=== PATIENT | male | born 1945 | race Caucasian/White ===

== ENCOUNTER 2018-08-02 13:02 | Inpatient (IN) ==
[2018-08-02] MEDS ORDERED: TORADOL IV ONE (13:37)
[2018-08-02] MEDS ORDERED: DUONEB (A & A) INH ONE (13:37)
[2018-08-02] MEDS ORDERED: NS 1,000 ML IV ONE ×2 (13:37→19:07)
[2018-08-02] MEDS ORDERED: SOLU-MEDROL IV ONE (13:37)
--- NOTE | 2018-08-02 13:46 | EKG Report ---
Test Performed on : 08/02/2018 1:38:48 PM Test Reason : hypotension Blood Pressure : / mmHG Vent. Rate : 084 BPM Atrial Rate : 416 BPM P-R Int : 000 ms QRS Dur : 144 ms QT Int : 396 ms P-R-T Axes : 000 -14 007 degrees QTc Int : 467 ms Wide QRS rhythm. Right bundle branch block Abnormal ECG When compared with ECG of 19-MAY-2017 10:53, Wide QRS rhythm. has replaced Sinus rhythm. Unconfirmed Result
[2018-08-02 14:28] LABS: BASO# 0.04 X1000 (0.0-0.2); BASO% 0.5 % (0.0-0.8); EOS# 0.09 X1000 (0.0-0.7); EOS% 1.1 % (0.0-10.0); HEMATOCRIT 44.2 % (42.0-52.0); HEMOGLOBIN 14.4 g/dL (14.0-18.0); IMM GRAN# 0.02 X1000 (0.0-0.04); IMM GRAN% 0.3 % (0.0-0.5); LYMPH% 12.6 % (20.5-51.1); MCH 30.8 PG (27-31); MCHC 32.6 g/dL (33-37); MCV 94.4 FL (81-99); MONO# 0.96 X1000 (0.11-0.59); MONO% 12.1 % (1.7-9.3); MPV 10.1 FL (7.4-10.4); NEUT# 5.83 X1000 (1.4-6.5); NEUT% 73.4 % (42.2-75.2); PLT 114 X1000 (130-400); RBC 4.68 XMIL (4.7-6.1); RDW 13.9 % (11.5-14.5); WBC 7.94 X1000 (4.8-10.8)
[2018-08-02 14:29] LABS: INFLUENZA A NEGATIVE (NEGATIVE); INFLUENZA B NEGATIVE (NEGATIVE)
[2018-08-02 15:17] LABS: ALBUMIN 3.1 g/dL (3.5-5.0); CALCIUM 8.1 mg/dL (8.8-10.2); CREATININE 2.1 mg/dL (0.7-1.2); POTASSIUM 4.7 mmol/L (3.5-5.1); TOTAL BILIRUBIN 0.4 mg/dL (0.20-1.00)
--- NOTE | 2018-08-02 15:24 | Diag Imaging Result Doc PS360 ---
CHEST-2 VIEWS - 08/02/2018 INDICATION: short of breath COMPARISON: 12/12/2015 FINDINGS: There is stable borderline cardiomegaly. Pulmonary vascularity is normal. There is a faint infiltrate in the lingula. There is also some linear atelectasis in the lung bases. No pneumothorax or pleural effusion. IMPRESSION: Borderline cardiomegaly. Faint infiltrate in the lingula. Correlate for possible pneumonia. Electronically signed by Christos Castro 08/02/2018 3:21 PM
[2018-08-02] MEDS ORDERED: ROCEPHIN 1 GM in NS 50 ML IV ONE (16:15)
[2018-08-02] MEDS ORDERED: ZITHROMAX PO ONE (16:15)
--- NOTE | 2018-08-02 16:30 | PROVIDER DOCUMENTATION ---
This chart was entered by Zoila Edward Scribe, acting as scribe for Korey Canela MD. HPI-General Adult - General Chief Complaint: B/P Problems Stated Complaint: HYPOTENSION/DIZZINESS Time Seen by Provider: 08/02/18 13:28 Source: patient Allergies/Adverse Reactions: Patient Allergies Allergy/AdvReac Type Severity Reaction Status Date / Time No Known Allergies Allergy Verified 06/22/16 06:15 Home Medications: Home Medication List Medication Instructions Recorded Confirmed Last Taken Type Tamsulosin [Flomax] 0.4 mg PO HS 11/30/13 05/24/17 05/23/17 20:00 History Morphine E.r. [Ms Contin] 60 mg PO DAILY 06/17/16 05/24/17 05/23/17 07:00 History Oxycodone HCl 30 mg PO BID 06/17/16 05/24/17 05/24/17 04:30 History Sennosides/Docusate Sodium [Stool 1 each PO BID 06/17/16 05/24/17 05/23/17 20: 00 History Softener-Stim Lax Tablet] SIMVAstatin [Zocor] 40 mg PO QHS 06/22/16 05/24/17 05/23/17 20:00 History Gabapentin 600 mg PO BID 05/19/17 05/24/17 05/23/17 07:00 History Hydroxyzine [Atarax] 25 mg PO BID 05/19/17 05/24/17 05/23/17 20:00 History LISINOpril [Prinivil] 20 mg PO DAILY 05/19/17 05/24/17 05/23/17 20:00 History Metoprolol Succinate E.r. [Toprol 25 mg PO DAILY 05/19/17 05/24/17 05/24/17 07: 00 History Xl] Polyethylene Glycol 3350 [Miralax] 17 gm PO EVERY OTHER DAY 05/19/17 05/24/17 History Furosemide [Lasix] 40 mg PO DAILY 05/25/17 05/25/17 Unknown History Albuterol Sulfate [Albuterol 8.5 gm IH Q4-6H PRN PRN #1 08/02/18 Unknown Rx Sulfate Hfa] hfa.aer.ad Amoxicillin/Potassium Clav 1 ea PO BID #20 tab 08/02/18 Unknown Rx [Augmentin 875-125 Tablet] Prednisone 20 mg PO BID #10 tab 08/02/18 Unknown Rx - History of Present Illness -Gen Adult Nature of Presenting Problems: Pt is 73/M presenting to ED w/ dizziness and hypotension, he sts that he has a sore throat upon swallowing. Sts that he has vomited x1 this AM. Location of Pain/Injury: reports: generalized, other Pain Radiation: reports: no radiation Quality of Pain: reports: other (Sore throat) Severity: reports: mild Onset/Duration: reports: this morning Timing: reports: still present Context/Activities at Onset: reports: none Modifying Factors: improves with: nothing Associated Symptoms: reports: dizziness, nausea, vomiting. denies: fever/chills Similar Symptoms Previously?: Yes Recently seen or treated by another doctor?: Yes Review of Systems - Adult - REVIEW OF SYSTEMS - ADULT Constitutional: reports: no symptoms reported Eyes: reports: no symptoms reported Ears, Nose, Mouth & Throat: reports: throat pain Cardiovascular: denies: chest pain, edema Respiratory: reports: cough, wheezing. denies: shortness of breath Gastrointestinal: reports: nausea, vomiting Genitourinary: reports: no symptoms reported Musculoskeletal: reports: no symptoms reported Integumentary: reports: no symptoms reported Neurological: reports: dizziness/vertigo. denies: loss of balance Psychiatric: reports: no symptoms reported Endocrine: reports: no symptoms reported Hematologic/Lymphatic: reports: no symptoms reported Allergic/Immunologic: reports: no symptoms reported All Other Systems: Reviewed and Negative Past History - Adult - PAST MEDICAL HISTORY-ADULT Review of Records: reports: Old Records Reviewed, Nursing Assessment Review, Medications Reviewed, Social history reviewed & non-contributory. - SOCIAL HISTORY Smoking: cigarettes Provider spent 3-5 mins advising pt. on dangers of tobacco.: Discussed manners to quit use, and f/u contacts for add'l counseling. Substance Use: none/never Alcohol Use Frequency: occasionally Living Situation: alone Physical Exam-General - PHYSICAL EXAM-ADULT Initial Vital Signs Reviewed: Yes - CONSTITUTIONAL General Appearance: appears well, alert, no apparent distress - EYES Eyes: PERRL/EOMI - HEAD, EARS, NOSE, MOUTH & THROAT HENMT: normocephalic/atraumatic, normal ENT inspection, TMs normal, pharyngeal erythema. negative: moist mucous membranes (dry) - NECK Neck: non-tender, full range of motion, supple, normal inspection - RESPIRATORY Respiratory: chest non-tender, normal breath sounds, rhonchi (scattered), wheezing (expitory) - CARDIOVASCULAR Cardiovascular: regular rate, rhythm, no edema - GASTROINTESTINAL (ABDOMEN) Abdominal Exam: normal bowel sounds, non tender, soft, no organomegaly - LYMPHATIC Lymphatic: no adenopathy - MUSCULOSKELETAL Back Exam: normal inspection, no CVA tenderness, no vertebral tenderness Extremity: normal range of motion, non-tender, normal gait, normal inspection - SKIN Integumentary: normal color, normal turgor, warm/dry - NEUROLOGIC Neurologic: grossly normal - PSYCHIATRIC Psych/Mental Status: normal mood/affect, normal thought content, normal thought process, oriented x 3 Progress - PLAN OF CARE/RESULTS Progress/Plan/Lab Results: Vital Signs - 8 hr 08/02/18 13:10 Temperature 98.4 F Pulse Rate 82 Respiratory Rate 18 Blood Pressure 124/75 O2 Sat by Pulse Oximetry 96 Orders Category Date Time Status Oxygen Therapy- ED Nursing DIRECTED Care 08/02/18 13:09 Active Saline Loc NOW Care 08/02/18 13:06 Active Result Diagrams: 08/02/18 13:56 08/02/18 13:56 - REASSESSMENT Reassessment #1 Time Reassessed: 16:22 Status: improving (Much better after meds. Patient and family comfortable with discharge home. No hypotension in the ED) - EKG 1 Time of EKG reading by physician:: 13:46 EKG Read and Signed by:: Korey Canela EKG Interpretation (*Must complete 3 of following elements*): Abnormal (Wide QRS rhythm, Right bundle branch block, Abnormal ECG, Low voltage, RBBB) Rate: 84 Rhythm: Wide WRS rhythm 2 Time of EKG reading by physician:: 14:00 EKG Interpretation (*Must complete 3 of following elements*): Abnormal (sinus rhythm with occasional premature ventricular complexes, Right bundle branch block. This is changed from EKG 1, due to change in EKG settings.) Rate: 87 Rhythm: sinus rhythm - XRAY 1 XRAY: Bilateral XRAY Study: Chest Impression: Abnormal (IMPRESSION: Borderline cardiomegaly. Faint infiltrate in the lingula. Correlate for possible pneumonia. Electronically signed by Christos Castro 08/02/2018 3:21 PM 01/30/19 1521 Interpreting Physician: Christos Castro MD Dictated Date/Time: 08/02/18 1521) Departure - Departure Date of Disposition Decision: 08/02/18 Time of Disposition Decision: 16:22 DIAGNOSIS: Lingular pneumonia, Tobacco use disorder, continuous, Dehydration syndrome, Transient hypotension COPD (chronic obstructive pulmonary disease) Qualifiers: COPD type: COPD with acute exacerbation Qualified Code(s): J44.1 - Chronic obstructive pulmonary disease with (acute) exacerbation Disposition: HOME 01 Certified Medical Emergency: Emergent Condition: Stable Additional Freetext Instructions: Stop smoking. Drink plenty of clear fluids. Return to ER for increased pain, fever or difficulty breathing or worsening of symptoms. ED Follow Up Instructions: You have been treated by a care provider in the Emergency Department. These instructions are being provided to you so you can have an understanding of how to care for yourself upon discharge. Upon discharge from the Emergency Department, you are responsible for making arrangements for follow-up care by a physician of your choice. Take all prescribed medications as directed. Return to the Emergency Department immediately for any new or worsening symptoms. You may call the Physician Referral phone number at [phone] to obtain a list of Physicians who are taking new patients. Prescriptions: Albuterol Sulfate [Albuterol Sulfate Hfa] 8.5 gm IH Q4-6H PRN PRN #1 hfa.aer.ad PRN Reason: wheezing, short of breath Amoxicillin/Potassium Clav [Augmentin 875-125 Tablet] 1 ea PO BID #20 tab Prednisone 20 mg PO BID #10 tab Referrals and Follow-Ups: Junaid Watson MD [Primary Care Provider] - Call for Appoint. -1 week Discharge Education: Community-Acquired Pneumonia, Adult, [id number], Chronic Obstructive Pulmonary Disease Exacerbation, [id number], How to Use a Metered Dose Inhaler, Dehydration, Adult, [id number] - Critical Care Note This patient required my direct & personal management of CC.: No Attestation - Physician/ SKYLA Attestation Patient care was provided by Advanced Practice Provider:: No The physician spent face to face time with patient:: Yes Advanced Practice Provider documentation review:: Supervising physician onsite and consulted in the evaluation and care of this patient. The physician did have a face to face encounter with the patient. This chart was documented by the indicated scribe, (Zoila Edward, Norah) and accurately reflects the services I performed and decisions made by , Korey Canela MD, as attested by the provider's signature.
[2018-08-02 17:41] LABS: I-STAT BE -5 mmoll (-2-3); I-STAT GLUCOSE 126 mg/dL (70-105); I-STAT HEMOGLOBIN 13.3 g/dL (11.5-17.5); I-STAT K 5.2 mmoll (3.5-4.9); I-STAT TCO2 21 mmoll (23-27); I-STAT pH 7.383 (7.350-7.450)
[2018-08-02 17:45] LABS: BLOOD TYPE ARTERIAL; PCO2(98.6) 34 mmHg (35-45); SAMPLE BLOOD; pH(98.6) 7.38 (7.35-7.45)
[2018-08-02 17:48] LABS: HCO3-(ACT) 20.5 mmoll (20.0-26.0); MODALITY ROOM AIR; PO2(98.6) 49 mmHg (60-100); THB 13.3 g/dL (11.5-17.4)
[2018-08-02 17:49] LABS: ALLEN TEST YES
[2018-08-02] MEDS ORDERED: TYLENOL PO PRN (19:17)
[2018-08-02] MEDS ORDERED: DUONEB (A & A) INH PRN (19:17)
[2018-08-02] MEDS ORDERED: ZOFRAN IV PRN (19:17)
[2018-08-02] MEDS: PERICOLACE PO SCH (20:08)
[2018-08-02] MEDS: HEPARIN SUBQ SCH (20:09)
[2018-08-02] MEDS: SODIUM CHLORIDE 0.9% INJ SCH (20:09)
[2018-08-02] MEDS: PROTONIX IV SCH (20:09)
[2018-08-02] MEDS: OXY IR PO SCH (20:09)
[2018-08-02] MEDS: NICODERM PATCH TD PRN (20:44)
[2018-08-02] MEDS: DUONEB (A & A) INH SCH (22:01)
--- NOTE | 2018-08-03 00:46 | HISTORY AND PHYSICAL ---
HISTORY OF PRESENT ILLNESS: The patient describes shortness of breath and cough for the last 3 weeks. That is his main complaint. This is a 73-year-old gentleman with history of tobacco use, hypertension, chronic renal failure, no heart disease, no heart failure, who presents with about a 3-week history of shortness of breath and cough. His chest x-ray shows a lingular infiltrate and borderline cardiomegaly, but no evidence of volume overload. He does report lower extremity edema though and he is hypoxic and is not on oxygen. He has kind of a congested appearance with coryza, injected sclera, everything to me that makes me suspicious to some degree of flu , but again he was flu negative. He was a bit hypotensive. Curiously, he is not anemic although he has been anemic previously, but he was hypoxic with a PaO2 49. His BUN and creatinine are 60 and 2.1 with a proBNP of 615. I do not have a lot of information to compare his kidney function, but he does see Dr. Murillo, so presumably this is not a new diagnosis. In any case, the patient was admitted for pneumonia possible and hypoxic respiratory failure. PAST MEDICAL HISTORY: 1. Again, hypertension. 2. Chronic renal failure at least stage II. 3. Denies diabetes. 4. Denies any cardiac disease. 5. Neuropathy. 6. Dyslipidemia. 7. Chronic pain disorder. 8. Benign prostatic hypertrophy. PAST SURGICAL HISTORY: He has had an appendectomy and he has had surgery on his right hip per Dr. Napier and he had a left anterior hip replacement. FAMILY HISTORY: Father had colon cancer. He was 46. SOCIAL HISTORY: Heavy alcohol use in the past, but occasional now, and he smokes up to a pack a day. He has done that for 50 years. REVIEW OF SYSTEMS: Constitutional: No weight loss, but he has had poor appetite the last month. Cardiovascular: No chest pain. Pulmonary: As described. Gastrointestinal : No nausea, vomiting, diarrhea. Genitourinary: No dysuria, hematuria. Otherwise negative times a 10 point review of systems. PHYSICAL EXAMINATION: VITAL SIGNS: Blood pressure is 146/86, heart rate of 90, respiratory rate 18, temperature 98.1 degrees, 88% on room air. GENERAL: A well-developed male in no acute distress although he does have injected sclerae, cough, coryza He is here with hypoxic respiratory failure presumably due to pneumonia, possibly some early CHF. Workup in the ER revealed again the lingular pneumonia. PROBLEM: 1. Lingular pneumonia. We will continue empiric antibiotics. He has been placed on Rocephin and azithromycin. We will continue that and pulmonary toilet breathing treatments. 2. He does have lower extremity edema 2+ both of which I do not have a clear explanation for although it may be heart failure. I am a little reluctant to diurese because he does have some renal insufficiency and we are not quite sure what his baseline level of functioning is, but we will see. I will try to get some records from Dr. Murillo's office about that. 3. Acute on chronic renal failure. May give him some gentle hydration until I get some more information on his kidney function whether it is good or bad. There is not clear evidence of volume overload at this point. 4. Chronic obstructive pulmonary disease. I think he probably does have some underlying tobacco issues. We are working on trying to sort through that. Advised on cessation. We will continue to follow closely. cc: Chris Mota MD MTDD
[2018-08-03] MEDS: DUONEB (A & A) INH SCH ×4 (03:32→22:25)
[2018-08-03] MEDS: ZITHROMAX PO SCH (09:34)
[2018-08-03] MEDS: HEPARIN SUBQ SCH ×2 (09:34→20:18)
[2018-08-03] MEDS: OXY IR PO SCH ×2 (09:34→20:17)
[2018-08-03] MEDS: PERICOLACE PO SCH ×2 (09:34→20:17)
[2018-08-03] MEDS ORDERED: PERICOLACE PO ONE (09:57)
[2018-08-03] MEDS ORDERED: ATARAX PO PRN (10:43)
--- NOTE | 2018-08-03 13:17 | Extremity Venous Study ---
Venous U/S Bilateral Legs - 08/03/2018 INDICATION: swelling TECHNIQUE: COMPARISON: None FINDINGS: The veins of the lower extremities are fully compressible. There is normal Doppler signal. In the right popliteal fossa there is a Kolb's cyst containing some internal echogenicity. This may be some hemorrhagic. No free fluid. IMPRESSION: Normal venous exam. Probably hemorrhagic Kolb's cyst in the right popliteal fossa. Electronically signed by Christos Castro 08/03/2018 1:15 PM
--- NOTE | 2018-08-03 15:48 | EKG Report ---
Test Performed on : 08/02/2018 1:52:46 PM Test Reason : ER Blood Pressure : / mmHG Vent. Rate : 087 BPM Atrial Rate : 087 BPM P-R Int : 170 ms QRS Dur : 152 ms QT Int : 406 ms P-R-T Axes : 021 -17 001 degrees QTc Int : 488 ms Sinus rhythm. with occasional premature ventricular complexes. Right bundle branch block Abnormal ECG When compared with ECG of 02-AUG-2018 13:38, (Unconfirmed) Sinus rhythm. has replaced Wide QRS rhythm. Unconfirmed Result
[2018-08-03] MEDS: ROCEPHIN 1 GM in NS 50 ML IV SCH (16:39)
[2018-08-03] MEDS ORDERED: NS 1,000 ML IV ONE (16:44)
--- NOTE | 2018-08-03 17:25 | PROGRESS NOTE ---
DATE: 08/03/2018 SUBJECTIVE: He is still feeling very short of breath. He is still on a decent amount of oxygen. OBJECTIVE: Blood pressure is 169/95, heart rate 88, and respiratory 19. He is 96% on 4 L afebrile.Cardiovascular: Regular rate and rhythm. Pulmonary: Diminished at the bases. No wheezes. Some rales in the bases. GI: Soft, nontender, and nondistended. Bowel sounds are positive. LABORATORY DATA: No new data today. PROBLEM LIST: 1. Acute hypoxic respiratory failure presumably due to pneumonia, not clear if there is more than that. At this point, we are trying to wean O2 as tolerated. 2. Lingular pneumonia. He is on Rocephin and azithromycin. We will repeat his chest x-ray tomorrow and follow. 3. Question of CHF. Echo is pending. We will continue to monitor. 4. Tobacco abuse. We advised on cessation. 5. Acute on chronic renal failure. I am going to touch base with Dr. Murillo because I am not exactly sure what his baseline level of kidney function is. It does look like he has got a bit of renal insufficiency. May get some renal lytes and see what we can see there, but he is probably going to be here for another day or 2 any may end up needing home oxygen. We will continue to follow. cc: Chris Mota MD
[2018-08-03 18:11] LABS: CALCIUM 8.7 mg/dL (8.8-10.2); POTASSIUM 4.9 mmol/L (3.5-5.1)
[2018-08-03] MEDS: NICODERM PATCH TD PRN (18:28)
[2018-08-03 18:55] LABS: UR CREAT RANDOM 56.1 mg/dL (14-26)
[2018-08-03] MEDS: ZOCOR PO SCH (20:17)
[2018-08-03] MEDS: FLOMAX PO SCH (20:17)
[2018-08-03] MEDS: VALIUM PO PRN (20:17)
[2018-08-03] MEDS: PROTONIX IV SCH (20:18)
[2018-08-03] MEDS: SODIUM CHLORIDE 0.9% INJ SCH (20:18)
[2018-08-03] MEDS ORDERED: HALL'S COUGH LOZENGE MT PRN (20:56)
--- NOTE | 2018-08-04 00:06 | ECHO REPORT ---
ORDER DATE: 08/03/2018 MEASUREMENTS: Left ventricular end-diastolic diameter 5.6, end systolic diameter 3.5, septal thickness 1.3, posterior wall thickness 1.3, aortic root 4.3, left atrium 4.7. SUMMARY: 1. Technically difficult study due to limited acoustic window quality. Intravenous echo contrast agent Definity was utilized to enhance endocardial definition. 2. The aortic valve is without evidence of structural abnormality and opens normally on 2- dimensional images. Peak gradient across the valve is 15 mmHg. Mitral and tricuspid valves are without evidence of structural abnormality, while pulmonic valves is not well demonstrated. There is trace mitral regurgitation. The aortic root is mildly enlarged. 3. Normal left ventricular chamber size with mild concentric left hypertrophy is demonstrated. Estimated left ejection fraction appears to be at least 55%. No regional wall motion abnormalities are evident. The left atrium is mildly to moderately enlarged. The right atrium and right ventricle are grossly normal in size. 4. No pericardial effusion. 5. Inferior vena cava appears somewhat generous, suggesting elevation in central venous pressure. cc: MD Chris Cantu MD
[2018-08-04] MEDS: DUONEB (A & A) INH SCH ×4 (03:53→23:28)
[2018-08-04 07:55] LABS: BASO# 0.02 X1000 (0.0-0.2); BASO% 0.3 % (0.0-0.8); EOS# 0.09 X1000 (0.0-0.7); EOS% 1.2 % (0.0-10.0); HEMATOCRIT 43.9 % (42.0-52.0); HEMOGLOBIN 13.9 g/dL (14.0-18.0); IMM GRAN# 0.02 X1000 (0.0-0.04); IMM GRAN% 0.3 % (0.0-0.5); LYMPH# 1.26 X1000 (1.2-3.4); LYMPH% 17.3 % (20.5-51.1); MCH 30.5 PG (27-31); MCHC 31.7 g/dL (33-37); MCV 96.3 FL (81-99); MONO# 0.49 X1000 (0.11-0.59); MONO% 6.7 % (1.7-9.3); MPV 10.7 FL (7.4-10.4); NEUT# 5.42 X1000 (1.4-6.5); NEUT% 74.2 % (42.2-75.2); PLT 102 X1000 (130-400); RBC 4.56 XMIL (4.7-6.1); RDW 13.6 % (11.5-14.5)
[2018-08-04 08:04] LABS: CALCIUM 8.6 mg/dL (8.8-10.2); CREATININE 1.6 mg/dL (0.7-1.2); POTASSIUM 4.5 mmol/L (3.5-5.1)
[2018-08-04] MEDS: HEPARIN SUBQ SCH ×2 (08:39→21:27)
[2018-08-04] MEDS: ZITHROMAX PO SCH (08:40)
[2018-08-04] MEDS: NEURONTIN PO SCH (08:40)
[2018-08-04] MEDS: OXY IR PO SCH ×2 (08:40→21:28)
[2018-08-04] MEDS: PERICOLACE PO SCH ×2 (08:41→21:27)
[2018-08-04] MEDS: NICODERM PATCH TD PRN (11:30)
[2018-08-04] MEDS: ROCEPHIN 1 GM in NS 50 ML IV SCH (17:00)
[2018-08-04] MEDS ORDERED: NS 1,000 ML IV ONE (17:35)
[2018-08-04] MEDS: REQUIP PO SCH (21:27)
[2018-08-04] MEDS: AFRIN NASAL SPRAY NAS SCH (21:27)
[2018-08-04] MEDS: FLOMAX PO SCH (21:28)
[2018-08-04] MEDS: COREG PO SCH (21:28)
[2018-08-04] MEDS: PROTONIX PO SCH (21:28)
[2018-08-04] MEDS: ZOCOR PO SCH (21:28)
[2018-08-04] MEDS: VALIUM PO PRN (21:35)
--- NOTE | 2018-08-04 23:38 | PROGRESS NOTE ---
DATE: 08/04/2018 The patient is doing okay, he seems better. His breathing is a bit better. He still has kind of cough, coryza, kind of an upper respiratory infection. Blood pressure 193/98, heart rate of 90, respiratory 18, temperature 97.8 degrees. He is still pretty hypertensive. Cardiovascular: Regular rate and rhythm. Pulmonary: Bilateral breath sounds. Clear to auscultation. GI: Was soft, nontender, nondistended. Bowel sounds are positive. Lower extremity. He has no edema. LABORATORY DATA: White count 7, hemoglobin and hematocrit 13, 43, platelets of 102,000, which is a bit of a drop. BUN and creatinine though are down 39 and 1.6 from 60 and 2.1. Urine sodium is 47, creatinine 56 kind of unrevealing. PROBLEM LIST: 1. Acute hypoxic respiratory failure due to pneumonia. We will continue to see how things go. Wean O2 and follow closely. I think we are going to be able to wean off his O2. 2. Lingular pneumonia. He is on Rocephin and azithromycin, repeat his chest x-ray tomorrow. 3. Putative congestive heart failure. I do not think he has any more heart failure. I think echocardiogram looked pretty much intact. DISPOSITION: Anticipate discharge next 24 hours if stable. cc: Chris Mota MD
[2018-08-05] MEDS: DUONEB (A & A) INH SCH ×4 (03:20→21:46)
[2018-08-05 07:50] LABS: BASO# 0.02 X1000 (0.0-0.2); BASO% 0.3 % (0.0-0.8); EOS# 0.11 X1000 (0.0-0.7); EOS% 1.9 % (0.0-10.0); HEMATOCRIT 40.1 % (42.0-52.0); HEMOGLOBIN 12.6 g/dL (14.0-18.0); IMM GRAN# 0.01 X1000 (0.0-0.04); IMM GRAN% 0.2 % (0.0-0.5); LYMPH# 0.96 X1000 (1.2-3.4); LYMPH% 16.7 % (20.5-51.1); MCH 30.4 PG (27-31); MCHC 31.4 g/dL (33-37); MCV 96.6 FL (81-99); MONO# 0.53 X1000 (0.11-0.59); MONO% 9.2 % (1.7-9.3); MPV 10.2 FL (7.4-10.4); NEUT# 4.11 X1000 (1.4-6.5); NEUT% 71.7 % (42.2-75.2); PLT 89 X1000 (130-400); RBC 4.15 XMIL (4.7-6.1); RDW 13.3 % (11.5-14.5); WBC 5.74 X1000 (4.8-10.8)
[2018-08-05 08:02] LABS: CALCIUM 8.3 mg/dL (8.8-10.2); CREATININE 1.5 mg/dL (0.7-1.2); POTASSIUM 4.4 mmol/L (3.5-5.1)
[2018-08-05] MEDS ORDERED: MIRALAX PO SCH (09:00)
[2018-08-05] MEDS: ZITHROMAX PO SCH (09:30)
[2018-08-05] MEDS: PERICOLACE PO SCH ×2 (09:31→20:16)
[2018-08-05] MEDS: NEURONTIN PO SCH (09:31)
[2018-08-05] MEDS: COREG PO SCH ×2 (09:31→20:17)
[2018-08-05] MEDS: OXY IR PO SCH ×2 (09:31→20:16)
[2018-08-05] MEDS: HEPARIN SUBQ SCH ×2 (09:31→20:16)
[2018-08-05] MEDS: AFRIN NASAL SPRAY NAS SCH ×2 (09:33→20:17)
[2018-08-05] MEDS: NICODERM PATCH TD PRN (09:42)
[2018-08-05] MEDS: ROCEPHIN 1 GM in NS 50 ML IV SCH (17:15)
[2018-08-05] MEDS: TUMS EXTRA STRENGTH PO PRN ×2 (20:16→22:06)
[2018-08-05] MEDS: FLOMAX PO SCH (20:17)
[2018-08-05] MEDS: ZOCOR PO SCH (20:17)
[2018-08-05] MEDS: PROTONIX PO SCH (20:17)
[2018-08-05] MEDS: REQUIP PO SCH (20:17)
--- NOTE | 2018-08-06 00:14 | PROGRESS NOTE ---
DATE: 08/05/2018 SUBJECTIVE: Patient has no focal complaints. OBJECTIVE: Blood pressure 161/83, heart rate 78, respiratory rate 20, temperature 97.6 degrees.Cardiovascular: Regular rate and rhythm. Pulmonary: Bilateral breath sounds clear to auscultation. GI: Soft, nontender, nondistended. Bowel sounds are positive. LABORATORY DATA: White count is 5, hemoglobin and hematocrit 12 and 40. Creatinine is down to 1.5. PROBLEM LIST: 1. Acute hypoxic respiratory failure associated with chronic obstructive pulmonary disease and pneumonia. We will continue to wean O2, but at this point he is probably going to require home oxygen. He was about 88% when taken off O2. 2. Lingular pneumonia. He is on Rocephin and azithromycin. Appears to be improving. 3. Congestive heart failure. His echocardiogram looked intact. There was nothing to suggest congestive heart failure at this point. 4. Chronic obstructive pulmonary disease with chronic hypoxia. We will need to set up his COPD. 5. Acute on chronic renal failure. He is improved after hydration. Will continue to monitor. DISPOSITION: I think we can set up oxygen tomorrow, he should be able to go home. cc: Chris Mota MD
[2018-08-06] MEDS: DUONEB (A & A) INH SCH ×3 (03:38→16:18)
[2018-08-06 07:31] LABS: CALCIUM 8.6 mg/dL (8.8-10.2); CREATININE 1.4 mg/dL (0.7-1.2); POTASSIUM 4.4 mmol/L (3.5-5.1)
[2018-08-06] MEDS: PERICOLACE PO SCH (08:07)
[2018-08-06] MEDS: NEURONTIN PO SCH (08:07)
[2018-08-06] MEDS: OXY IR PO SCH (08:07)
[2018-08-06] MEDS: COREG PO SCH (08:07)
[2018-08-06] MEDS: NICODERM PATCH TD PRN (08:07)
[2018-08-06] MEDS: HEPARIN SUBQ SCH (08:07)
[2018-08-06] MEDS: ZITHROMAX PO SCH (08:07)
[2018-08-06] MEDS: AFRIN NASAL SPRAY NAS SCH (08:08)
[2018-08-06 15:02] VITALS: BP 183/95
--- NOTE | 2018-08-06 21:32 | DISCHARGE SUMMARY ---
ADMISSION DATE: 08/02/2018 DISCHARGE DATE: 08/06/2018 PRIMARY CARE PHYSICIAN: Dr. Watson. ADMISSION DIAGNOSIS: 1. Lingular pneumonia. 2. Acute on chronic renal failure. 3. Chronic obstructive pulmonary disease. DISCHARGE DIAGNOSIS: 1. An acute hypoxic respiratory failure associated with chronic obstructive pulmonary disease and pneumonia, improved. 2. Lingular pneumonia, improved. 3. Congestive heart failure, stable. 4. An acute chronic obstructive pulmonary disease exacerbation with chronic hypoxia, improved. 5. Acute on chronic renal failure improved. SUMMARY OF FINDINGS: This is a 73-year-old male who presented to the emergency room with complaints of shortness of breath and a cough for the 3 weeks prior to arrival. Chest x-ray did reveal a lingular infiltrate and borderline cardiomegaly but no evidence of volume overload. He did report some bilateral lower extremity edema. He was negative for the flu but some of his symptoms certainly presented flu-like. He was started on IV antibiotic, did pulmonary toilet breathing treatment. He qualified for home O2 and so he has been set up for home O2 and it is felt that he can now safely be discharged home with home health services. DISCHARGE MEDICATIONS: Coreg 25 mg p.o. b.i.d., Valium 5 mg p.o. at bedtime, gabapentin 600 mg p.o. b.i.d., hydroxyzine 25 mg p.o. b.i.d. p.r.n., oxycodone 30 mg p.o. b.i.d., MiraLAX 17 g p.o. every other day, ropinirole 0.5 mg p.o. at bedtime, simvastatin 40 mg p.o. at bedtime, tamsulosin 0.4 mg p.o. at bedtime, an albuterol inhaler q.4-6 hours p.r.n., Ceftin 500 mg p.o. q.12 hours #14 with no refills, Combivent Respimat inhaler 1 puff inhalation q.6 hours and sennosides /docusate sodium 2 p.o. b.i.d. FOLLOWUP: He is to call for a followup appointment for 1 week with his primary care physician and again he has home health services with home O2 and will also give him a NicoDerm patch 21 mg transdermally daily as we did discuss smoking cessation with this patient and he is interested in smoking cessation . TIME SPENT: 35 minutes. Dictated by ZBIGNIEW Robles for Chris Mota MD cc: MD Chris Quinn MD
--- NOTE | 2018-08-06 23:29 | DISCHARGE SUMMARY ---
ADMISSION DATE: 08/02/2018 DISCHARGE DATE: 08/06/2018 ADDENDUM: DISCHARGE DIAGNOSIS: 1. Hypoxic respiratory failure. 2. Lingular pneumonia. 3. Chronic obstructive pulmonary disease but no he does not have congestive heart failure. Rule out. He looks well day of discharge, no complaints. Breathing is better. He has been afebrile. He did qualify for oxygen with exertion. Plan will be to discharge on antibiotics. He has had about 5 days of azithromycin so I am going to hold off on any more and he will go home on Ceftin. We discussed smoking cessation so he will go home on NicoDerm patches taper. Full details per discharge summary. This is a [id number] encounter note with Vera Oconnor. cc: Chris Mota MD
== END 2018-08-06 16:12 | disposition home health service (06) | DRG 193 ==
LOC: P.ED 13:02 → P.MEDSURG 18:31
PROVIDERS: ATTEND Internal Medicine
CPT/HCPCS: 71020; 71046; 80048; 80053; 82330; 82570; 82805; 82947; 83880; 84132; 84295; 84300; 84484; 85014; 85018; 85025; 87040; 87070; 87077; 87081; 87186; 87205; 87275; 87276; 87430; 87804; 89220; 93005; 93306; 93970; 94640; 94761; 94799; 96361; 96365; 96366; 96375; 99285; A9270; C8929; C9113; J0696; J1644; J1885; J2405; J2930; J7030; Q9957; S0164

== ENCOUNTER 2018-11-26 21:30 | Inpatient (IN) ==
[2018-11-26] MEDS ORDERED: NS 1,000 ML IV ONE (21:34)
[2018-11-26 22:11] LABS: ALBUMIN 3.3 g/dL (3.5-5.0); CREATININE 2.1 mg/dL (0.7-1.2); POTASSIUM 5.4 mmol/L (3.5-5.1); TOTAL BILIRUBIN 0.6 mg/dL (0.20-1.00); TOTAL PROTEIN 6.3 g/dL (6.3-8.3)
[2018-11-26 22:11] LABS: BILIRUBIN URINE NEGATIVE (NEGATIVE); BLOOD URINE 1+ (NEGATIVE); GLUCOSE URINE NEGATIVE (NEGATIVE); KETONE URINE NEGATIVE (NEGATIVE); LEUKOCYTES URINE NEGATIVE (NEGATIVE); NITRITE URINE NEGATIVE (NEGATIVE); SP GRAVITY URINE 1.015; UROBILINOGEN URINE NORMAL
[2018-11-26 22:12] LABS: BASO# 0.02 X1000 (0.0-0.2); BASO% 0.3 % (0.0-0.8); EOS# 0.09 X1000 (0.0-0.7); EOS% 1.2 % (0.0-10.0); HEMATOCRIT 44.9 % (42.0-52.0); HEMOGLOBIN 15.1 g/dL (14.0-18.0); IMM GRAN# 0.01 X1000 (0.0-0.04); IMM GRAN% 0.1 % (0.0-0.5); LYMPH# 1.91 X1000 (1.2-3.4); LYMPH% 26.2 % (20.5-51.1); MCH 31.6 PG (27-31); MCHC 33.6 g/dL (33-37); MCV 93.9 FL (81-99); MONO# 0.55 X1000 (0.11-0.59); MONO% 7.5 % (1.7-9.3); MPV 10.2 FL (7.4-10.4); NEUT# 4.72 X1000 (1.4-6.5); NEUT% 64.7 % (42.2-75.2); PLT 83 X1000 (130-400); RBC 4.78 XMIL (4.7-6.1); RDW 14.4 % (11.5-14.5)
[2018-11-26 22:12] LABS: CLARITY CLEAR (CLEAR); COLOR YELLOW; URINE BACTERIA 1+ /HFP; URINE EPITHELIAL CELLS <10 /HPF (<10); URINE RBC <10 /HPF (<10)
[2018-11-26 22:13] LABS: URINE CAST NONE SEEN /LPF; URINE CRYSTAL NONE SEEN /HPF; URINE SOURCE CLEAN CATCH; URINE YEAST NONE SEEN /HPF
[2018-11-27] MEDS ORDERED: NS 1,000 ML IV ONE (02:27)
--- NOTE | 2018-11-27 05:46 | PROVIDER DOCUMENTATION ---
This chart was entered by Jerrica Root Scribe, acting as scribe for Judy Paredes MD. [id number] Abuse/Overdose - General Chief Complaint: Intoxicated Stated Complaint: Intox/AMS/hypotensive Time Seen by Provider: 11/26/18 21:35 Source: patient, EMS Allergies/Adverse Reactions: Allergies Allergy/AdvReac Type Severity Reaction Status Date / Time No Known Allergies Allergy Verified 11/21/18 14:43 Home Medications: Home Medication List Medication Instructions Recorded Confirmed Last Taken Type Tamsulosin [Flomax] 0.4 mg PO HS 11/30/13 11/22/18 11/19/18 History Oxycodone HCl 0.5 - 1 tab PO DAILY 06/17/16 11/22/18 11/21/18 History SIMVAstatin [Zocor] 40 mg PO QHS 06/22/16 11/22/18 11/20/18 History Gabapentin 600 mg PO DAILY 05/19/17 11/22/18 11/21/18 History Carvedilol 25 mg PO BID 08/04/18 11/22/18 11/20/18 History Albuterol [Albuterol Neb] 2.5 mg INH TID 09/05/18 11/22/18 11/20/18 History Hydrocodone/APAP 7.5 mg/325 mg 1 ea PO Q4H PRN #30 tab 09/12/18 11/22/18 11/21/18 Rx [[place]-7.5] Promethazine [Phenergan] 25 mg PO Q6-8H PRN PRN #20 tab 09/12/18 11/22/18 11/21/18 Rx - History of Present Illness-Drug/Alcohol Nature of Presenting Problem: 73 yo m c/o presents to the ED with EMS complaining of intoxication and AMS. Pt states he is an alcoholic and and drinks daily and today was worried he may to to his drinking but denies SI or HI. Pt vaguely complains of abdominal pain which appears chronic, no fever, no nausea or vomiting, no dairrhea. Was recently [facility] with [facility] and [facility] Review of Systems - Adult - REVIEW OF SYSTEMS - ADULT Constitutional: reports: no symptoms reported Eyes: reports: no symptoms reported Ears, Nose, Mouth & Throat: reports: no symptoms reported Cardiovascular: reports: no symptoms reported Respiratory: reports: no symptoms reported Gastrointestinal: reports: see HPI, abdominal pain. denies: diarrhea, nausea, vomiting Genitourinary: reports: no symptoms reported Musculoskeletal: reports: no symptoms reported Integumentary: reports: no symptoms reported Neurological: reports: no symptoms reported Psychiatric: reports: see HPI, alcohol/drug dependence (alcohol). denies: emotional problems, insomnia, panic attacks Endocrine: reports: no symptoms reported Hematologic/Lymphatic: reports: no symptoms reported Allergic/Immunologic: reports: no symptoms reported All Other Systems: Reviewed and Negative Past History - Adult - PAST MEDICAL HISTORY-ADULT Review of Records: reports: Old Records Reviewed, Nursing Assessment Review, Medications Reviewed, Social history reviewed & non-contributory. Major Childhood Illnesses: reports: denies history Cardiovascular: reports: HTN Respiratory: reports: COPD Gastrointestinal: reports: denies history Obstetrical/Gynecological: reports: denies history Genitourinary: reports: kidney disease Musculoskeletal: reports: denies history Neurological: reports: denies history Endocrine/Immune: reports: denies history Other Conditions: reports: denies history - PRIOR SURGERIES/PROCEDURES Surgical/Procedure History: reports: appendectomy - IMMUNIZATION STATUS Childhood Immunizations: See Nurse Assessment Flu Vaccine: See Nurse Assessment - FAMILY HISTORY Family History: reviewed, not pertinent - SOCIAL HISTORY Smoking: other (former) Substance Use: alcohol Physical Exam-General - PHYSICAL EXAM-ADULT Initial Vital Signs Reviewed: Yes - CONSTITUTIONAL General Appearance: appears well, alert, obese, other (etoh on breath). negative: anxious, obtunded, combative - EYES Eyes: PERRL/EOMI, pink conjunctivae - HEAD, EARS, NOSE, MOUTH & THROAT HENMT: normocephalic/atraumatic, moist mucous membranes, normal ENT inspection - NECK Neck: non-tender, full range of motion, supple, normal inspection - RESPIRATORY Respiratory: chest non-tender, lungs clear, normal breath sounds - CARDIOVASCULAR Cardiovascular: normal peripheral pulses, regular rate, rhythm - GASTROINTESTINAL (ABDOMEN) Abdominal Exam: normal bowel sounds, non tender, soft, no organomegaly, no pulsatile mass. negative: abdominal bruit, abnormal bowel sounds, distended - LYMPHATIC Lymphatic: no adenopathy - MUSCULOSKELETAL Back Exam: normal inspection, no CVA tenderness, no vertebral tenderness Extremity: normal range of motion, non-tender, normal inspection Peripheral Pulses: radial (R): 2+, radial (L): 2+ - SKIN Integumentary: normal color, normal turgor, warm/dry - NEUROLOGIC Neurologic: grossly normal, no motor/sensory deficits - PSYCHIATRIC Psych/Mental Status: oriented x 3, disheveled. negative: normal mood/affect, normal thought content, normal thought process, anxious, paranoid, tearful Progress - PLAN OF CARE/RESULTS Progress/Plan/Lab Results: Vital Signs - 8 hr 11/27/18 01:42 Pulse Rate 83 Respiratory Rate 18 Laboratory Results - last 24 hr 11/26/18 11/26/18 11/26/18 21:30 21:30 21:30 WBC 7.30 RBC 4.78 Hgb 15.1 Hct 44.9 MCV 93.9 MCH 31.6 H MCHC 33.6 RDW Std Deviation 14.4 Plt Count 83 L MPV 10.2 Immature Gran % (Auto) 0.1 Neut % (Auto) 64.7 Lymph % (Auto) 26.2 Fallon % (Auto) 7.5 Eos % (Auto) 1.2 Baso % (Auto) 0.3 Immature Gran # (Auto) 0.01 Neut # (Auto) 4.72 Lymph # (Auto) 1.91 Fallon # (Auto) 0.55 Eos # (Auto) 0.09 Baso # (Auto) 0.02 Sodium 136 Potassium 5.4 H Chloride 103 Carbon Dioxide 20 L Anion Gap 13 BUN 55 H Creatinine 2.1 H Estimated GFR/1.73 m2 31 BUN/Creatinine Ratio 26 Glucose 107 H Calculated Osmolality 288 Calcium 8.0 L Total Bilirubin 0.60 AST 64 H ALT 31 Alkaline Phosphatase 81 Ammonia Total Protein 6.3 Albumin 3.3 L Globulin 3.0 Albumin/Globulin Ratio 1.0 Lipase 47 Urine Source Urine Color Urine Clarity Urine pH Ur Specific Waldron Urine Protein Urine Ketones Urine Blood Urine Nitrite Urine Bilirubin Urine Urobilinogen Urine Microscopic RBC Urine WBC Ur Epithelial Cells Urine Crystals Urine Bacteria Urine Casts Urine Yeast Urine Glucose Plasma/Serum Ethyl Alc 309 H 11/26/18 11/27/18 21:45 03:05 WBC RBC Hgb Hct MCV MCH MCHC RDW Std Deviation Plt Count MPV Immature Gran % (Auto) Neut % (Auto) Lymph % (Auto) Fallon % (Auto) Eos % (Auto) Baso % (Auto) Immature Gran # (Auto) Neut # (Auto) Lymph # (Auto) Fallon # (Auto) Eos # (Auto) Baso # (Auto) Sodium Potassium Chloride Carbon Dioxide Anion Gap BUN Creatinine Estimated GFR/1.73 m2 BUN/Creatinine Ratio Glucose Calculated Osmolality Calcium Total Bilirubin AST ALT Alkaline Phosphatase Ammonia 19 Total Protein Albumin Globulin Albumin/Globulin Ratio Lipase Urine Source CLEAN CATCH Urine Color YELLOW Urine Clarity CLEAR Urine pH 5.0 Ur Specific Waldron 1.015 Urine Protein 3+(500 mg/dL) A Urine Ketones NEGATIVE Urine Blood 1+ A Urine Nitrite NEGATIVE Urine Bilirubin NEGATIVE Urine Urobilinogen NORMAL Urine Microscopic RBC <10 Urine WBC NEGATIVE Ur Epithelial Cells <10 Urine Crystals NONE SEEN Urine Bacteria 1+ Urine Casts NONE SEEN Urine Yeast NONE SEEN Urine Glucose NEGATIVE Plasma/Serum Ethyl Alc Orders Category Date Time Status IV Insertion ORDERED Care 11/26/18 21:34 Completed ALCOHOL BLOOD Stat Lab 11/26/18 21:30 Completed AMMONIA [CHEM] Stat Lab 11/27/18 03:05 Completed CBC WITH DIFF [HEME] Stat Lab 11/26/18 21:30 Completed COMPREHENSIVE METABOLIC PANEL [CHEM] Stat Lab 11/26/18 21:30 Completed HEMATOCRIT [HEME] Stat Lab 11/27/18 06:14 Ordered HEMOGLOBIN [HEME] Stat Lab 11/27/18 06:14 Ordered LIPASE [CHEM] Stat Lab 11/26/18 21:[address] W/POSS RFLX CULT [URINALYSIS] Stat Lab 11/26/18 21:45 Completed 0.9% Sodium Chloride Inj [Ns] 1,000 ml Med 11/26/18 21:34 Discontinued IV 999 mls/hr 0.9% Sodium Chloride Inj [Ns] 1,000 ml Med 11/27/18 02:27 Discontinued IV 999 mls/hr Pantoprazole [Protonix] 80 mg Med 11/27/18 06:15 Discontinued 0.9% Sodium Chloride Inj [Ns] 80 ml IV NOW AMS likely due to ETOH intoxication, will further evaluate for other causes of AMS and will further evaluate pt's abdominal pain and will closely observe Result Diagrams: 11/26/18 21:30 11/26/18 21:30 - REASSESSMENT Reassessment #1 Status: improving (Pt remains intermittently tearful but awake alert and oriented. Feels that he has failed his family. Denies abdominal pain and refuses CT, unable to obtain prior due to pt's intoxication and lack of cooperative. Non-tender on re-exam. Likely symptoms due to etoh intoxication and alcohol asso caited gastritis. Awaiting arrival of pt's family and will dc home with them once they arrive) Reassessment #2 Status: worsening (Called to room by nurse. Pt stood up from the bed and had an episode of dark bloody diarrheal stool. concerning for GI bleeding particulary in setting of ETOH abuse. Vitals stable, repeat Hb/Hct sent and will admit. Discussed case with Dr. North, Hospitalist, who will see and admit pt.) - EKG 1 Time of EKG reading by physician:: 21:24 EKG Read and Signed by:: Judy Paredes EKG Interpretation (*Must complete 3 of following elements*): Abnormal Rate: 85 Rhythm: NSR QRS: RBB VT Interval: normal ST Wave: normal Departure - Departure Date of Disposition Decision: 11/27/18 Time of Disposition Decision: 06:57 DIAGNOSIS: Alcohol intoxication Qualifiers: Complication of substance-induced condition: uncomplicated Qualified Code(s): F10.920 - Alcohol use, unspecified with intoxication, uncomplicated Gastritis Qualifiers: Gastritis type: alcoholic Chronicity: acute Gastritis bleeding: presence of bleeding unspecified Qualified Code(s): K29.20 - Alcoholic gastritis without bleeding GI bleeding Qualifiers: GI bleed type/associated pathology: unspecified gastrointestinal hemorrhage type Qualified Code(s): K92.2 - Gastrointestinal hemorrhage, unspecified Disposition: ADMITTED INPATIENT 09 Certified Medical Emergency: Emergent Condition: Fair Additional Freetext Instructions: ED Follow Up Instructions: You have been treated by a care provider in the Emergency Department. These instructions are being provided to you so you can have an understanding of how to care for yourself upon discharge. Upon discharge from the Emergency Department, you are responsible for making arrangements for follow-up care by a physician of your choice. Take all prescribed medications as directed. Return to the Emergency Department immediately for any new or worsening symptoms. You may call the Physician Referral phone number at [phone] to obtain a list of Physicians who are taking new patients. - Critical Care Note This patient required my direct & personal management of CC.: No Attestation - Physician/ SKYLA Attestation Patient care was provided by Advanced Practice Provider:: No The physician spent face to face time with patient:: Yes Advanced Practice Provider documentation review:: Supervising physician onsite and consulted in the evaluation and care of this patient. The physician did have a face to face encounter with the patient. This chart was documented by the indicated scribe, (Jerrica Root, Norah) and accurately reflects the services I performed and decisions made by me, Judy Paredes MD, as attested by the provider's signature.
[2018-11-27] MEDS ORDERED: PROTONIX 80 MG in NS 80 ML IV ONE (06:15)
[2018-11-27 07:08] LABS: HEMATOCRIT 43.2 % (42.0-52.0); HEMOGLOBIN 14.6 g/dL (14.0-18.0)
[2018-11-27] MEDS ORDERED: PROTONIX 80 MG in NS 80 ML IV SCH (08:05)
[2018-11-27] MEDS ORDERED: G.I. COCKTAIL PO ONE (08:08)
[2018-11-27] MEDS ORDERED: PROTONIX PO SCH (08:09)
[2018-11-27 08:40] LABS: CREATININE 1.9 mg/dL (0.7-1.2)
[2018-11-27 08:42] LABS: POTASSIUM 6.1 mmol/L (3.5-5.1)
[2018-11-27] MEDS ORDERED: M.V.I.-12 10 ML, FOLIC ACID 1 MG, MAGNESIUM SULFATE 1 GM, THIAMINE 100 MG in NS 1,000 ML IV SCH (09:00)
[2018-11-27] MEDS ORDERED: CARAFATE LIQUID PO SCH (09:15)
[2018-11-27] MEDS ORDERED: SODIUM BICARBONATE 8.4% IV ONE (09:16)
[2018-11-27] MEDS ORDERED: HUMULIN R IV ONE (09:16)
[2018-11-27] MEDS ORDERED: D50W SYRINGE IV ONE (09:16)
[2018-11-27] MEDS ORDERED: VELTASSA PO ONE (09:22)
--- NOTE | 2018-11-27 09:31 | Diag Imaging Result Doc PS360 ---
EXAM: CT ABDOMEN/PELVIS W/O CONTRAST HISTORY: abd pain TECHNIQUE: Emergency CT abdomen and pelvis without contrast COMPARISON: 11/21/2018 FINDINGS: There is fatty infiltration of the liver. No calcified gallstones or adjacent inflammation. Normal spleen, pancreas, and adrenal glands. There is scarring to the left kidney. No renal stones or hydronephrosis. Severe atherosclerosis. No aortic aneurysm. No bowel obstruction. There are multiple scattered colonic diverticula. The appendix has been removed. No abscess. Urinary bladder is distended and is normal. Prostate is not enlarged. There has been orthopedic replacement of each hip. This creates metallic artifact in the pelvis. IMPRESSION: No interval change. Although there is prominent colonic diverticulosis, there is no definite evidence of diverticulitis. This exam was performed using automated exposure control, adjustment of mA or kV according to patient size, and/or use of iterative reconstruction technique. Electronically signed by Ubaldo Sue 11/27/2018 9:28 AM
[2018-11-27] MEDS ORDERED: M.V.I.-12 10 ML, FOLIC ACID 1 MG, MAGNESIUM SULFATE 1 GM, THIAMINE 100 MG in NS 1,000 ML IV ONE (09:45)
[2018-11-27] MEDS ORDERED: HUMULIN R (PARKWAY) ONE (09:47)
[2018-11-27 10:26] LABS: HEMATOCRIT 42.2 % (42.0-52.0); HEMOGLOBIN 14.2 g/dL (14.0-18.0); MCH 31.8 PG (27-31); MCHC 33.6 g/dL (33-37); MCV 94.4 FL (81-99); RBC 4.47 XMIL (4.7-6.1); RDW 14.4 % (11.5-14.5); WBC 6.32 X1000 (4.8-10.8)
[2018-11-27 10:29] LABS: ALBUMIN 2.8 g/dL (3.5-5.0); CREATININE 1.9 mg/dL (0.7-1.2); PHOSPHORUS 3.1 mg/dL (2.7-4.5)
[2018-11-27 10:30] LABS: POTASSIUM 6.1 mmol/L (3.5-5.1)
[2018-11-27 10:34] LABS: INR 0.9; PROTIME 12.6 Seconds (11.0-16.0)
[2018-11-27 12:35] LABS: URINE SOURCE CATH
[2018-11-27 12:39] LABS: BILIRUBIN URINE NEGATIVE (NEGATIVE); BLOOD URINE SMALL (NEGATIVE); COLOR YELLOW; GLUCOSE URINE NEGATIVE (NEGATIVE); KETONE URINE NEGATIVE (NEGATIVE); LEUKOCYTES URINE NEGATIVE (NEGATIVE); NITRITE URINE NEGATIVE (NEGATIVE); PROTEIN URINE 100 mg/dL (NEGATIVE); SP GRAVITY URINE 1.007; TURBIDITY URINE CLEAR (CLEAR); UROBILINOGEN URINE NORMAL (NORMAL)
[2018-11-27 12:40] LABS: UR EPITHELIAL CELLS <10 /HPF (<10); URINE BACTERIA NEGATIVE /HPF; URINE RBC <10 /HPF (<10); URINE WBC <10 /HPF (<10)
[2018-11-27] MEDS: MORPHINE IV PRN ×3 (12:49→20:44)
[2018-11-27] MEDS: CARAFATE LIQUID PO SCH ×3 (12:55→21:43)
[2018-11-27] MEDS: NS 1,000 ML IV SCH ×2 (12:55→21:48)
--- NOTE | 2018-11-27 13:16 | HISTORY AND PHYSICAL ---
CHIEF COMPLAINT: Intoxication, altered mental status. HISTORY OF PRESENT ILLNESS: This is a 73-year-old gentleman with a history of chronic alcohol abuse, COPD, chronic kidney disease stage 3, who presents to the emergency room after being called by his sister. According to the ER chart, the patient was intoxicated. The sister told EMS that he had been talking out of his head for 3 days. At the time of my interview, the patient is awake and he is alert. He kept saying, "Don't let me just because I drink alcohol, please not let me ." The patient is also asking to speak to his sister and his ex- stating, "I need to talk to them before I ." According to the patient, he has not had any food intake for 3 days. He has only had alcohol to drink. When asked how much, he stated, "As much as I could get in and any kind I could get in." He did state that he was bleeding out of his rectum. He described red stools. He stated that he had been to [facility] for evaluation for this, although there is no record of him having a visit for a GI bleed, nor were family members aware. Of note, the patient was admitted to the hospital to [facility] from November 21 to with hypotension. He presented for abdominal pain. He was found to be hypotensive and acute kidney injury. He was rehydrated. Medications were adjusted. He was discharged home. PAST MEDICAL HISTORY: 1. Chronic obstructive pulmonary disease. 2. Peripheral artery disease. 3. Severe osteoarthritis of the spine with scoliosis. 4. Chronic kidney disease stage 3. 5. Peripheral neuropathy. 6. Hypertension. 7. Benign prostatic hypertrophy. 8. Diverticulosis. 9. Chronic pain disorder. PAST SURGICAL HISTORY: Appendectomy, jaw surgery, tonsillectomy and bilateral hip surgery. SOCIAL HISTORY: Patient is a heavy alcohol user. He denies any illicit drug or tobacco use. ALLERGIES: No documented allergies. MEDICATIONS: A list will be obtained by the nursing staff and once verified, will review and restart as is appropriate. REVIEW OF SYSTEMS: Discussed with patient with pertinent positives stated in the history of present illness. He denied any syncope or dizziness, any chest pain or palpitations, shortness of breath, cough, fever, chills, any night sweats, any black or bloody vomitus, any urinary retention, hematuria, dysuria, frequency, urgency. PHYSICAL EXAMINATION: GENERAL: This is a 73-year-old gentleman who is lying on the stretcher in the emergency room in mild distress. VITAL SIGNS: Blood pressure ranging from 160 to 180/100 to 110. Heart rates are in the 90 to 112 range, respirations are 18 to 20, temperature is 98 degrees with O2 saturations 95-96% on 2 L nasal cannula. EYES: Pupils are equal, round, react to light. EOMs are intact. Sclerae are anicteric. HEENT: Head is normocephalic, atraumatic. Mucous membranes are dry. NECK: Supple with trachea midline. CARDIOVASCULAR: Regular rate and rhythm. He is tachycardic. S1 and S2 are appreciated. No murmurs. He has no lower extremity edema. Calves are nontender bilateral to palpation with peripheral pulses palpable x4 extremities. He does have a petechial rash noted to the top of his feet and up his zambrano bilateral with right greater than left that he states he noticed yesterday. This is red in color. PULMONARY: Breath sounds are clear with no increased work of breathing noted. Chest rises and falls symmetrically with respiration. Chest wall is nontender to palpation. GASTROINTESTINAL: Abdomen is distended with diffuse tenderness. He does have some hypoactive bowel sounds. GENITOURINARY: He has no CVA nor suprapubic tenderness. SKIN: Warm and dry with a red petechial rash noted to bilateral lower extremities to the top of his feet up his shins with right greater than left. NEUROLOGIC: He is alert and oriented x3. ASSESSMENT AND PLAN: 1. Gastrointestinal bleed. The patient has had multiple bloody diarrhea stools while in the emergency room. He stated that he had some at home. Will continue to trend his hemoglobin and hematocrit and type and screen.. Continue with IV hydration. consult Gastroenterology. 2. Abdominal pain. pain medications. 3. Chronic kidney disease stage 3. Hold any renal toxic medications and trend his labs. Of note, the patient was admitted to the hospital November 21 to November 22 in acute kidney injury at that time. DONG inhibitor was discontinued, although we are unsure of the patient's medicine usage after discharge. 4. Hyperkalemia. This was treated in the emergency room with D50, bicarb, insulin. Will repeat his labs and treat appropriately. 5. Hypertension. Monitor vital signs We can treat with p.r.n. IV medication 6. History of chronic obstructive pulmonary disease, no acute exacerbation at present. We will monitor. 7. History of diverticulosis, aware. 8. History of her peripheral artery disease, aware. 9. Benign prostatic hypertrophy. Aware. Continue the Flomax once he is taking oral medications. 10. Chronic alcohol abuse. monitor for withdrawal and delirium tremens. banana bag now and then daily. 11. Deep venous thrombosis prophylaxis. Of course, we will hold off on any anticoagulation. The patient will be transferred to [facility] via EMS transport for Gastroenterology evaluation and treatment. He will remain n.p.o. at present. Further treatments pending hospital course and evaluation by Dr. Haley. Dictated by ZBIGNIEW Potter for Hussein Haley MD cc: ZBIGINEW Potter MD [facility]
[2018-11-27] MEDS ORDERED: ALBUTEROL NEB INH SCH (15:00)
[2018-11-27 16:13] LABS: HEMATOCRIT 46.5 % (42.0-52.0); HEMOGLOBIN 15.2 g/dL (14.0-18.0); MCH 31.8 PG (27-31); MCHC 32.7 g/dL (33-37); MCV 97.3 FL (81-99); MPV 10.6 FL (7.4-10.4); RBC 4.78 XMIL (4.7-6.1); RDW 14.7 % (11.5-14.5); WBC 7.97 X1000 (4.8-10.8)
[2018-11-27] MEDS: ATIVAN IV PRN ×2 (16:54→20:44)
[2018-11-27] MEDS ORDERED: SODIUM CHLORIDE 0.9% INJ PRN (18:26)
[2018-11-27] MEDS: ZOCOR PO SCH (20:07)
[2018-11-27] MEDS: FLOMAX PO SCH (20:08)
[2018-11-27] MEDS: PROTONIX PO SCH (20:08)
[2018-11-27 20:41] LABS: HEMATOCRIT 43.1 % (42.0-52.0); HEMOGLOBIN 14.3 g/dL (14.0-18.0); MCH 31.6 PG (27-31); MCHC 33.2 g/dL (33-37); MCV 95.1 FL (81-99); MPV 9.8 FL (7.4-10.4); RBC 4.53 XMIL (4.7-6.1); RDW 14.3 % (11.5-14.5); WBC 8.55 X1000 (4.8-10.8)
[2018-11-27] MEDS ORDERED: COREG PO SCH (21:00)
[2018-11-27] MEDS: ALBUTEROL NEB INH SCH (21:18)
[2018-11-27 23:21] LABS: C REACTIVE PROT QUANT 0.3 mg/L (0.00-5.00)
[2018-11-28] MEDS ORDERED: CARDIZEM IV ONE (00:27)
[2018-11-28] MEDS ORDERED: CARDIZEM 100 MG/NS 100 MG/100 ML IVPB IV SCH (00:30)
[2018-11-28] MEDS ORDERED: CARDIZEM ONE (00:38)
[2018-11-28 00:41] LABS: HEMATOCRIT 41.1 % (42.0-52.0); HEMOGLOBIN 13.5 g/dL (14.0-18.0); MCH 31.4 PG (27-31); MCHC 32.8 g/dL (33-37); MCV 95.6 FL (81-99); MPV 9.9 FL (7.4-10.4); RBC 4.3 XMIL (4.7-6.1); RDW 14.2 % (11.5-14.5); WBC 8.25 X1000 (4.8-10.8)
[2018-11-28] MEDS ORDERED: CARDIZEM 125 MG/D5W 125 MG/125 ML IVPB IV SCH (01:00)
[2018-11-28] MEDS: MORPHINE IV PRN ×3 (04:30→19:24)
[2018-11-28] MEDS: CARAFATE LIQUID PO SCH ×2 (04:30→09:34)
[2018-11-28 04:36] LABS: HEMATOCRIT 41.9 % (42.0-52.0); HEMOGLOBIN 13.6 g/dL (14.0-18.0); MCH 31.4 PG (27-31); MCHC 32.5 g/dL (33-37); MCV 96.8 FL (81-99); MPV 10.4 FL (7.4-10.4); RBC 4.33 XMIL (4.7-6.1); RDW 14.3 % (11.5-14.5); WBC 8.02 X1000 (4.8-10.8)
[2018-11-28 04:38] LABS: ALBUMIN 2.7 g/dL (3.5-5.0); CALCIUM 7.8 mg/dL (8.8-10.2); CREATININE 1.8 mg/dL (0.7-1.2); MAGNESIUM 1.7 mg/dL (1.5-2.7); POTASSIUM 5.1 mmol/L (3.5-5.1); TOTAL BILIRUBIN 0.96 mg/dL (0.20-1.00); TOTAL PROTEIN 5.3 g/dL (6.3-8.3)
[2018-11-28] MEDS ORDERED: PROTONIX PO SCH (07:00)
[2018-11-28] MEDS ORDERED: PROTONIX IV SCH (08:05)
--- NOTE | 2018-11-28 08:11 | EKG Report ---
Test Performed on : 11/27/2018 10:54:05 PM Test Reason : NO EKG ORDER FOR MUSE Blood Pressure : / mmHG Vent. Rate : 153 BPM Atrial Rate : 159 BPM P-R Int : 000 ms QRS Dur : 128 ms QT Int : 284 ms P-R-T Axes : 000 012 -11 degrees QTc Int : 453 ms Atrial fibrillation. with rapid ventricular response. with premature ventricular or aberrantly conduc daniel complexes. Right bundle branch block Abnormal ECG When compared with ECG of 26-NOV-2018 21:22, (Unconfirmed) Atrial fibrillation. has replaced Sinus rhythm. Vent. rate has increased BY 68 BPM Nonspecific T wave abnormality no longer evident in Anterior leads Confirmed by Alex ESTRADA, Hu Jacob ([id number]) on 11/28/2018 12:42:43 PM
[2018-11-28] MEDS: PROTONIX PO SCH (08:20)
[2018-11-28] MEDS: NEURONTIN PO SCH (08:20)
[2018-11-28] MEDS: NS 1,000 ML IV SCH (08:20)
[2018-11-28] MEDS: ALBUTEROL NEB INH SCH (08:31)
[2018-11-28] MEDS ORDERED: LASIX PO SCH (09:00)
[2018-11-28] MEDS ORDERED: PRINIVIL PO SCH (09:00)
[2018-11-28] MEDS ORDERED: OXY IR PO SCH (09:00)
[2018-11-28] MEDS ORDERED: ZANTAC PO SCH (09:00)
[2018-11-28] MEDS ORDERED: M.V.I.-12 10 ML, FOLIC ACID 1 MG, MAGNESIUM SULFATE 1 GM, THIAMINE 100 MG in NS 1,000 ML IV SCH (10:00)
--- NOTE | 2018-11-28 10:12 | EKG Report ---
Test Performed on : 11/26/2018 9:22:48 PM Test Reason : ER Blood Pressure : / mmHG Vent. Rate : 085 BPM Atrial Rate : 085 BPM P-R Int : 164 ms QRS Dur : 150 ms QT Int : 404 ms P-R-T Axes : 103 -07 005 degrees QTc Int : 480 ms Normal sinus rhythm. Right bundle branch block Abnormal ECG When compared with ECG of 21-NOV-2018 17:21, (Unconfirmed) Right bundle branch block is now present Unconfirmed Result
--- NOTE | 2018-11-28 11:16 | PROGRESS NOTE ---
DATE: 11/28/2018 SUBJECTIVE: This morning, Mr. Lazar referred to be feeling a little better. Still remarkably weak but no more vomiting blood. The patient has been evaluated by GI and there is not any immediate plan for intervention. OBJECTIVE: Vital Signs: Blood pressure is 114/65, pulse of 80, respirations are 16, temperature is 100.1 degrees. General Examination: Mr. Lazar is a 73-year-old, gentleman. He is in bed. He is not in any distress. HEENT: Mucosa is pink and moist. Anicteric. Acyanotic. Neck: Supple. Chest: Air entry is bilaterally reduced. There are a few crackles in the posterior lung austin. There is also some rhonchi. Cardiovascular: Regular rate and rhythm. No murmurs, no rubs, no gallops. GI: Abdomen is soft. Extremities: No pedal edema. BED OPERATOR: The patient is awake, alert, oriented. There are some residual tremors, especially on intention. Laboratory Data: WBC is 8.02, hemoglobin is 13.6, platelet count of 64,000. Chemistry is reviewed. Creatinine is 1.8. It is trending down. Alcohol level on presentation was about 309. This morning, it is down to 186. ASSESSMENT: 1. Altered mental status on presentation secondary to alcohol intoxication. The patient is currently showing signs of withdrawal so he is going to be treated accordingly. 2. Atrial fibrillation with rapid ventricular response, likely related to the alcohol withdrawal. The patient was started on a Cardizem drip. We are going to switch this to oral. The rate is now under control and it spontaneously converted to sinus. 3. Suspected gastrointestinal bleed. The patient is not showing any more signs. He has been evaluated by gastroenterology. No immediate need for any intervention. The patient has been started on a gastrointestinal soft diet. 4. Acute on chronic renal failure. We are going to continue with the gentle hydration. I have switched the fluid to include bicarb and D5 because of the non-anion gap metabolic acidosis. 5. History of chronic obstructive pulmonary disease. Currently, the patient is showing some mild bronchospasm and crackles. We will get a chest x-ray to follow it up accordingly. He was recently discharged from the hospital because of chronic obstructive pulmonary disease exacerbation. We will continue with the nebulization at least for now. cc: MD Chris Crump MD
[2018-11-28] MEDS: OXYCONTIN PO SCH ×2 (11:48→23:07)
[2018-11-28] MEDS: THERA M PLUS PO SCH (11:48)
[2018-11-28] MEDS: VITAMIN B-1 PO SCH (11:48)
[2018-11-28] MEDS: CARDIZEM PO SCH ×3 (11:49→19:24)
[2018-11-28] MEDS: SODIUM BICARBONATE 8.4% 100 MEQ in D5W 1,000 ML IV SCH (12:34)
[2018-11-28] MEDS: LIBRIUM PO SCH ×2 (13:51→16:56)
[2018-11-28] MEDS ORDERED: BLISTEX MEDICATED BERRY LIP BALM TOP PRN (15:59)
[2018-11-28] MEDS: XOPENEX NEB INH PRN ×2 (16:10→19:51)
--- NOTE | 2018-11-28 16:49 | GASTROENTEROLOGY CONSULTATION ---
DATE: 11/28/2018 REASON FOR CONSULTATION: hematochezia HPI: Mr. Coleman Lazar is a 73 year old man with history of ETOH abuse, COPD, CKD3, OA, HTN, diverticulosis, h/o bleeding hemorrhoids, tobacco abuse who presented with AMS and alcohol intoxication. He reports having associated NBNB emesis the day prior to admission. However, he has noted 3-4 episodes of BRBPR over the last 3 days. No melena, abdominal pain, CP, diarrhea, or constipation. No NSAIDs or aspirin. He is on prednisone 20mg daily his COPD. +SOB and wheezing. He had a colonoscopy that was unrevealing for polyps with Dr. Brito in 2017. ROS: as per HPI, otherwise 12 point ROS negative PMH: as per HPI: other include chronic pain, peripheral neuropathy, BPH PSH: Appendectomy, jaw surgery, tonsillectomy, and bilateral hip surgeries MEDS: reviewed in chart ALL: NKDA FH: Father had CRC at 45 years old SH: 1ppd smoker, he drinks at least a pint of liquor per day, usually more than that, no drug use PE: VS T 98.6 HR 71 RR 16 BP 133/68 O2 95% on 3L NC GEN: awake, alert, NAD HEENT: anicteric, MMM, EOMI NECK: supple, no jvd or LAD CV: RRR, no murmurs PULM: diffuse expiratory wheezing, no crackles ABD: obese, soft NT/ND, NABS, no ascites EXT: no cce NEURO: nonfocal LABS: Na 142 K 5.1 CL 110 CO2 19 BUN 43 Cr 1.8 glu 95 WBC 8 Hgb 13.6 plts 64K LFTs with albumin 2.7 AST 56 ALT 30 LAP 71 Tbili 0.96 lipase 37 UA proteinuria ETOH 309 CTAP with IV contrast IMPRESSION: No interval change. Although there is prominent colonic diverticulosis, there is no definite evidence of diverticulitis A/P: Mr. Coleman Lazar is a 73 year old man with history of ETOH abuse, COPD, CKD3, OA, HTN, diverticulosis, h/o bleeding hemorrhoids, tobacco abuse who presented with AMS in the setting of alcohol intoxication. AMS resolved. Notable wheezing on exam concerning for COPD exacerbation. Labs notable for low bicarb and hyperkalemia likely 2/2 to volume depletion and ETOH. Hgb is WNL. The patient has history of diverticulosis and bleeding hemorrhoids in the past. No upper GI symptoms to suggest UGIB. He does have alcoholic liver disease and thrombocytopenia. No stigmata of cirrhosis or splenomegaly on exam or imaging. INR is normal. # Hematochezia: ddx includes diverticular, hemorrhoids, AVM; less likely UGIB - recommend diagnostic colonoscopy inpatient vs outpatient depending on clinical course - trending H/H daily, transfuse as needed to maintain hgb 7-8 - holding blood thinners # ETOH intoxication: will keep on CIWA and monitor for withdrawal symptoms; on thiamine and folate # COPD: nebs per primary # Hyperkalemia: improving # HTN: stable # CKD3: stable; renally dose meds # Thrombocytopenia: likely 2/2 to alcoholism; hold blood thinners and lovenox Will follow with you. Please call with questions cc: Chris Mota MD [facility]
[2018-11-28] MEDS: PHENERGAN IV PRN (17:02)
[2018-11-28] MEDS: COREG PO SCH (20:24)
[2018-11-28] MEDS: FLOMAX PO SCH (20:24)
[2018-11-28] MEDS: ZOCOR PO SCH (20:24)
[2018-11-28] MEDS: ATIVAN IV PRN (20:36)
[2018-11-29] MEDS: CARDIZEM PO SCH ×4 (02:13→20:16)
[2018-11-29] MEDS: SODIUM BICARBONATE 8.4% 100 MEQ in D5W 1,000 ML IV SCH (02:14)
[2018-11-29] MEDS: ATIVAN IV PRN ×3 (05:19→23:26)
[2018-11-29 05:34] LABS: BASO# 0.02 X1000 (0.0-0.2); BASO% 0.4 % (0.0-0.8); EOS# 0.19 X1000 (0.0-0.7); EOS% 3.4 % (0.0-10.0); HEMATOCRIT 36.9 % (42.0-52.0); HEMOGLOBIN 12.1 g/dL (14.0-18.0); LYMPH# 1.43 X1000 (1.2-3.4); LYMPH% 25.4 % (20.5-51.1); MCH 31.3 PG (27-31); MCHC 32.8 g/dL (33-37); MCV 95.6 FL (81-99); MONO# 0.43 X1000 (0.11-0.59); MONO% 7.6 % (1.7-9.3); MPV 10.3 FL (7.4-10.4); NEUT# 3.56 X1000 (1.4-6.5); NEUT% 63.2 % (42.2-75.2); PLT 48 X1000 (130-400); RBC 3.86 XMIL (4.7-6.1); RDW 13.8 % (11.5-14.5); WBC 5.63 X1000 (4.8-10.8)
[2018-11-29 06:00] LABS: ALBUMIN 2.5 g/dL (3.5-5.0); CALCIUM 7.7 mg/dL (8.8-10.2); CREATININE 1.5 mg/dL (0.7-1.2); PHOSPHORUS 1.8 mg/dL (2.7-4.5)
--- NOTE | 2018-11-29 06:41 | Diag Imaging Result Doc PS360 ---
EXAM: CHEST-PORTABLE HISTORY: dyspnea TECHNIQUE: Portable chest single view COMPARISON: 11/03/2018 FINDINGS: Poor inspiratory effort. The heart is mildly enlarged. There is mild central vascular distention. No consolidation. No pleural effusions identified. IMPRESSION: Cardiomegaly with mild pulmonary edema. Electronically signed by Ubaldo Sue 11/29/2018 6:38 AM
[2018-11-29] MEDS ORDERED: PROTONIX PO SCH (07:00)
[2018-11-29] MEDS: PHENERGAN IV PRN ×2 (08:30→23:26)
[2018-11-29] MEDS: LIBRIUM PO SCH ×3 (08:38→17:32)
[2018-11-29] MEDS: COREG PO SCH ×2 (08:39→20:16)
[2018-11-29] MEDS: NEURONTIN PO SCH (09:38)
[2018-11-29] MEDS: VITAMIN B-1 PO SCH (09:38)
[2018-11-29] MEDS: OXYCONTIN PO SCH ×2 (09:38→20:16)
[2018-11-29] MEDS: THERA M PLUS PO SCH (09:38)
[2018-11-29 09:41] LABS: INR 0.81; PROTIME 11.8 Seconds (11.0-16.0)
[2018-11-29 10:32] LABS: FERRITIN 1508 ng/mL (30-400)
[2018-11-29 11:03] LABS: IRON SATURATION 95 %; TIBC 120 ug/dL; TOTAL IRON 114 ug/dL (53-167); UNBOUND IRON 6 ug/dL (112-346)
[2018-11-29] MEDS: PREDNISONE PO SCH (13:42)
[2018-11-29] MEDS: LEVAQUIN PO SCH (13:42)
--- NOTE | 2018-11-29 14:37 | PROGRESS NOTE ---
DATE: 11/29/2018 SUBJECTIVE: This morning Mr. Lazar refers to be doing a little better. He said he has not vomited anymore and has not had any rectal bleed. He has also been tolerating his diet. He has been complaining of some cough with dark sputum production. OBJECTIVE: His current vitals, blood pressure is 134/74, pulse of 71, respirations 14, and temperature is 98 degrees. Patient was saturating about 94% on nasal cannula. In general exam, Mr. Lazar is a 73-year-old gentleman. He was in bed. He did not seem to be in any cardiopulmonary distress. Mucosa is pink and moist. Anicteric. Acyanotic. Neck is supple. Chest: Air entry was bilaterally reduced with diffuse bilateral wheezing in the posterior lung austin. There was also prolonged expiratory phase of respiration, but no wheezing. Regular rate and rhythm. No murmurs, no rubs, no gallops. GI: Abdomen is soft and nontender. Bowel sounds were present. Extremities with no pedal edema. 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 He is oriented to person and to place, but disoriented to time. There were no tremors this morning. LABORATORY DATA: White cell count is 5.63. The hemoglobin is 12.1 and platelet count of 48,000. Chemistry is also reviewed. Creatinine is down to 1.5. Phosphorus is low. His iron studies are consistent with a normal ferritin, normal percent saturation. Iron levels are also normal. Folate and B12 are all within normal ranges. A chest x-ray this morning did show cardiomegaly with mild pulmonary edema. ASSESSMENT: 1. Altered mental status on presentation secondary to alcohol intoxication. The patient is a lot more alert today. He did show some mild signs of withdrawal yesterday which have subsided today. The patient is still on Librium. 2. Atrial fibrillation with RVR, likely related to alcohol withdrawal, improved. 3. Normocytic anemia. Iron studies are within normal range. We think this is probably from dilution. 4. Thrombocytopenia likely due to alcohol induced. 5. Acute on chronic renal failure. Creatinine is down to 1.5 which seems to be his baseline. IV fluids have been discontinued today. 6. Electrolytes abnormality including hypophosphatemia and hypomagnesemia most likely due to long- standing alcohol abuse. We will replace these. 7. History of chronic obstructive pulmonary disease. The patient continues to have remarkable wheezing. We are going to start treating him actively for COPD exacerbation. 8. Ongoing tobacco abuse. Patient has been counseled. So, today, Mr. Lazar seems to be doing fairly okay. Vitals are stable. His heart rate is in sinus and in normal rate. He is still having some wheezing, so we are going to start him on some antibiotics steroid, and bronchodilation therapy. IV fluid has been discontinued. We will do an echocardiogram to rule out any underlying congestive heart failure. We will also discontinue the Molina catheter and get Mr. Lazar to the medical floor. We will consult PT and get him up and be mobile. cc: MD Chris Crump MD MTDD
--- NOTE | 2018-11-29 17:38 | ECHO REPORT ---
ORDER DATE: 11/29/2018 INTERPRETING PHYSICIAN: Dr. Kelby Anguiano. ECHOCARDIOGRAPHIC MEASUREMENTS: 1. Interventricular septum: 0.9 cm. 2. Left ventricular posterior wall: 0.9 cm. 3. Diastolic diameter: 4.4 cm. 4. Ascending aorta: 4.3 cm. SUMMARY OF THE 2-DIMENSIONAL IMAGIN. Technically suboptimal study. 2. Ascending aorta was dilated. 3. Aortic valve leaflets trileaflet. 4. Pulmonic valve not well visualized. 5. There is trace pulmonary regurgitation. 6. Mitral valve leaflets were normal with mitral annular calcification. 7. Tricuspid valve was normal. There was mild mitral regurgitation. 8. Peak velocity across the aortic valve less than 2 m/sec. By Doppler studies, there is no aortic stenosis or regurgitation. There is mild tricuspid regurgitation. Peak velocity across the tricuspid valve was 3 m/sec. 9. Pulmonary artery systolic pressure of 46 mmHg. 10. Optison was used to assess left ventricular systolic function. Normal left ventricular cavity size. Estimated ejection fraction of 60%. 11. There is no pericardial effusion. Anterior echo-free space suggestive of pericardial fat pad noted. cc: MD Micah Hinojosa MD Alexis R. Penot, MD
[2018-11-29] MEDS: XOPENEX NEB INH PRN (20:02)
[2018-11-29] MEDS: ZOCOR PO SCH (20:16)
[2018-11-29] MEDS: FLOMAX PO SCH (20:16)
[2018-11-29] MEDS: PROTONIX PO SCH (20:18)
--- NOTE | 2018-11-29 23:46 | PROVIDER PROGRESS NOTE ---
Progress Note SUBJECTIVE: No acute overnight events. Afebrile. He reports some lightheadedness and SOB. No abdominal pain, rectal bleeding, confusion. Tolerating diet. OBJECTIVE: Last Vital Signs Temp 97.8 F 11/29/18 20:06 Pulse 84 11/29/18 20:06 Resp 15 11/29/18 20:06 BP 154/74 11/29/18 20:06 Pulse Ox 91 L 11/29/18 20:06 Height 5 ft 11 in Weight 222 lb GEN: awake, alert, NAD HEENT: anicteric, MMM, EOMI NECK: supple, no jvd or LAD CV: RRR, no murmurs PULM: diffuse expiratory wheezing improving, no crackles ABD: obese, soft NT/ND, NABS, no ascites EXT: no cce NEURO: nonfocal LABS: 11/29/18 11/29/18 11/29/18 04:55 04:55 09:05 WBC 5.63 Hgb 12.1 L Plt Count 48 L Sodium 135 L Potassium 4.0 D Chloride 102 Carbon Dioxide 25 BUN 31 H Creatinine 1.5 H Glucose 123 H Iron 114 TIBC 120 % Saturation 95 Unsat Iron Binding 6 L Ferritin Albumin 2.5 L Vitamin B12 Folate 11/29/18 11/29/18 09:05 09:05 WBC Hgb Plt Count Sodium Potassium Chloride Carbon Dioxide BUN Creatinine Glucose Iron TIBC % Saturation Unsat Iron Binding Ferritin 1508 H Albumin Vitamin B12 368 Folate 13.2 CTAP with IV contrast IMPRESSION: No interval change. Although there is prominent colonic diverticulosis, there is no definite evidence of diverticulitis A/P: Mr. Coleman Lazar is a 73 year old man with history of ETOH abuse, COPD, CKD3, OA, HTN, diverticulosis, h/o bleeding hemorrhoids, tobacco abuse who presented with AMS in the setting of alcohol intoxication. AMS resolved. Notable wheezing on exam concerning for COPD exacerbation. Labs notable for low bicarb and hyperkalemia likely 2/2 to volume depletion and ETOH. All blood counts down today; likely dilutional. # Hematochezia: ddx includes diverticular, hemorrhoids, AVM; less likely UGIB; resolved - recommend diagnostic colonoscopy inpatient vs outpatient depending on clinical course - trending H/H daily, transfuse as needed to maintain hgb 7-8 - holding blood thinners # ETOH intoxication: will keep on CIWA and monitor for withdrawal symptoms; on thiamine and folate # COPD: nebs per primary # Hyperkalemia: resolved # HTN: stable # CKD3: stable; renally dose meds # Thrombocytopenia: likely 2/2 to alcoholism; hold blood thinners and lovenox Will follow with you. Please call with questions
[2018-11-30] MEDS: CARDIZEM PO SCH ×4 (02:12→20:02)
[2018-11-30 05:00] LABS: ALLEN TEST YES; BE 1.1 mmoll (-3.0-3.0); BLOOD TYPE ARTERIAL; HCO3-(ACT) 25.8 mmoll (20.0-26.0); METHB 1.2 % (0.0-1.5); O2(CT) 16.9 mL/dL (15.0-23.0); PCO2(98.6) 48 mmHg (35-45); PO2(98.6) 117 mmHg (60-100); SAMPLE BLOOD; SAO2 99.2 % (95.0-100.0); THB 12.4 g/dL (11.5-17.4); pH(98.6) 7.36 (7.35-7.45)
[2018-11-30 05:01] LABS: MODALITY CANNULA
[2018-11-30 05:45] LABS: INR 0.99; PROTIME 13.9 Seconds (11.0-16.0)
[2018-11-30 05:53] LABS: BASO# 0.01 X1000 (0.0-0.2); BASO% 0.2 % (0.0-0.8); EOS# 0.09 X1000 (0.0-0.7); EOS% 1.6 % (0.0-10.0); HEMATOCRIT 38.3 % (42.0-52.0); HEMOGLOBIN 12.4 g/dL (14.0-18.0); IMM GRAN# 0.02 X1000 (0.0-0.04); IMM GRAN% 0.4 % (0.0-0.5); LYMPH# 0.93 X1000 (1.2-3.4); LYMPH% 16.4 % (20.5-51.1); MCH 31.2 PG (27-31); MCHC 32.4 g/dL (33-37); MCV 96.2 FL (81-99); MONO# 0.38 X1000 (0.11-0.59); MONO% 6.7 % (1.7-9.3); MPV 11.1 FL (7.4-10.4); NEUT# 4.24 X1000 (1.4-6.5); NEUT% 74.7 % (42.2-75.2); PLT 42 X1000 (130-400); RBC 3.98 XMIL (4.7-6.1); RDW 13.5 % (11.5-14.5); WBC 5.67 X1000 (4.8-10.8)
[2018-11-30] MEDS: PROTONIX PO SCH (06:11)
[2018-11-30 06:36] LABS: ALB/GLOB RATIO 0.9; ALBUMIN 2.6 g/dL (3.5-5.0); CREATININE 1.3 mg/dL (0.7-1.2); POTASSIUM 5.4 mmol/L (3.5-5.1); TOTAL BILIRUBIN 0.57 mg/dL (0.20-1.00); TOTAL PROTEIN 5.4 g/dL (6.3-8.3)
--- NOTE | 2018-11-30 07:52 | Diag Imaging Result Doc PS360 ---
CHEST-PORTABLE - 11/30/2018 INDICATION: dyspnea COMPARISON: 11/29/2018 FINDINGS: Stable severely low lung volumes. Stable cardiomegaly and mild pulmonary vascular congestion. Stable ill-defined infiltrate or atelectasis at the lateral left lung base. No new infiltrates. No arch pleural effusion. IMPRESSION: No change from prior. Electronically signed by Christos Castro 11/30/2018 7:50 AM
[2018-11-30] MEDS: VITAMIN B-1 PO SCH (08:29)
[2018-11-30] MEDS: COREG PO SCH ×2 (08:29→20:01)
[2018-11-30] MEDS: NEURONTIN PO SCH (08:30)
[2018-11-30] MEDS: OXYCONTIN PO SCH ×2 (08:30→20:01)
[2018-11-30] MEDS: THERA M PLUS PO SCH (08:30)
[2018-11-30] MEDS: LIBRIUM PO SCH ×3 (08:32→17:19)
[2018-11-30] MEDS: LEVAQUIN PO SCH (08:34)
[2018-11-30] MEDS: PREDNISONE PO SCH (08:34)
[2018-11-30] MEDS ORDERED: LANOXIN PO ONE (09:54)
--- NOTE | 2018-11-30 10:46 | EKG Report ---
Test Performed on : 11/30/2018 10:20:14 AM Test Reason : Afib Blood Pressure : / mmHG Vent. Rate : 085 BPM Atrial Rate : 085 BPM P-R Int : 160 ms QRS Dur : 136 ms QT Int : 396 ms P-R-T Axes : 000 -16 -10 degrees QTc Int : 471 ms Sinus rhythm. with occasional premature ventricular complexes. and fusion complexes Right bundle branch block Minimal voltage criteria for LVH, may be normal variant Abnormal ECG When compared with ECG of 27-NOV-2018 22:54, Sinus rhythm. has replaced Atrial fibrillation. Vent. rate has decreased BY 68 BPM T wave inversion now evident in Anterior leads Confirmed by Alex ESTRADA, Hu Jacob ([id number]) on 11/30/2018 6:39:43 PM
[2018-11-30] MEDS: LOKELMA POWDER PACKET PO SCH (10:56)
[2018-11-30] MEDS: MIRALAX PO SCH (10:56)
--- NOTE | 2018-11-30 11:04 | PROGRESS NOTE ---
DATE: 11/30/2018 SUBJECTIVE: This morning Mr. Lazar refers to be feeling a lot better, but he is weak. He said the breathing however has improved. OBJECTIVE: Vital signs: Blood pressure is 153/94, pulse of 99, respirations 17, and temperature 98.5. General: Mr. Lazar is a 73-year-old gentleman. He is in bed in no distress. Mucosa is pink and moist. Anicteric. Acyanotic. Neck: Supple. Chest: Air entry is still bilaterally reduced. There is a few distant wheezing and crackles in the posterior lung austin. Cardiovascular: Regular rate. Occasional extrasystolic beats but no murmurs, no rubs, no gallops. GI: Abdomen is soft, distended and nontender. Bowel sounds are present. Some discoloration of the left lower abdomen, which seems to be chronic. Bowel sounds are present. Extremities: No pedal edema. 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 There are no tremors today. LABORATORY DATA: WBC is 5.67, hemoglobin is 12.4 and platelet count of 43,000. Chemistry is also reviewed. Creatinine is down to 1.3. Potassium has gone up to 5.4. AST and ALT almost normalized. CURRENT MEDICATIONS: All have been reviewed. DIAGNOSTIC STUDIES: 1. A chest x-ray this morning shows stable cardiomegaly and mild pulmonary vascular congestion. There is also stable ill-defined infiltrate or atelectasis at the lateral left lung base. No new infiltrates. 2. An echocardiogram showed an ejection fraction of 60%. Pulmonary artery systolic pressure is about 46. There was normal left ventricular cavity size. ASSESSMENT: 1. Altered mental status on presentation secondary to alcohol intoxication with also symptoms of mild withdrawal during the hospital course. The patient is a lot stable. 2. Atrial fibrillation with RVR, presumably related to alcohol withdrawal. The patient is currently on Cardizem. He seems to be in sinus, however, he continues to have these PVCs. We will continue with the Cardizem. We have added digoxin for better heart control. Echocardiogram was unremarkable. 3. Normocytic anemia. Initially, there was a thought process that the patient could have GI bleed. The patient has been evaluated by GI. No recommendation for any intervention at least for now. 4. Thrombocytopenia most likely related to alcohol. The patient is not showing any obvious ongoing bleed. 5. Acute on chronic renal failure. Creatinine is down to 1.3. 6. History of COPD with mild exacerbation during the hospital course. The patient is on antibiotics steroids and inhaled nebulization. 7. Ongoing tobacco abuse. Patient has been counseled. 8. Congestive heart failure with preserved ejection fraction. We will continue to address the underlying issues. 9. Generalized weakness and deconditioning. We have consulted Social Work yesterday. I have not seen any note. Hopefully, patient will be evaluated today. The patient is also pending transfer to the floor. We will consult social service liaison for possible rehab placement. cc: MD Chris Crump MD
--- NOTE | 2018-11-30 14:33 | GASTROENTEROLOGY PROGRESS NOTE ---
DATE: 11/30/2018 SUBJECTIVE: Resting in bed. He is feeling better. He denies any fevers, rigors, or chills. He denies any nausea or vomiting. He denies any blood in the stools. He admits to drinking heavy before admission. He was noted to have thrombocytopenia. He has never had evaluation for thrombocytopenia. OBJECTIVE: Vitals: Temperature of 98.5 degrees, pulse rate of 99, respiratory rate 17, blood pressure 153/94, satting 92% on 4 liters/minute. Body weight of 222 pounds. BMI of 31 kg. General: The patient is obese, lying in bed in no acute distress. HEENT: Mild pallor. No icterus. Neck: Supple. Abdomen: Obese, soft, nontender, nondistended. No guarding or rebound. Extremities: No cyanosis, clubbing. Neurologic: Neuro-roy, alert, awake, oriented x3. LABS: His hemoglobin and hematocrit is 12.4 and 38.3, white count of 5.67, platelet count of 42. ABG showing pH of 7.36, pCO2 48, PO2 of 117. This is on nasal cannula 5 L. INR 0.9, PT of 13.9. Sodium 130, potassium 5.4, chloride 103, bicarbonate 26, anion gap 6. BUN of 22, creatinine 1.3, glucose of 130, calcium is 8. Total bilirubin is 0.57, AST 40, ALT 24, alkaline phosphatase 72, total protein is 5.4, albumin of 2.6. ProBNP 2720. Ammonia last checked 2 days ago on 11/27 was 19, CRP was 0.3 and B 12 368, folate of 13.2. Last alcohol on admission was 186. X-RAYS: Chest x-ray done today showed stable severely low lung volumes, stable cardiomegaly and mild pulmonary vascular congestion. Stable ill-defined infiltrate atelectasis at the lateral left lung base. No new infiltrates, no arch pleural effusion. IMPRESSION AND PLAN: 1. Hematochezia is now resolved. We will continue to watch patient's hemoglobin and hematocrit. He will need diagnostic colonoscopy, inpatient versus outpatient depending on clinical course. 2. Alcohol intoxication. Continue to watch for withdrawal. Continue on thiamine and folate. 3. Chronic obstructive pulmonary disease. Nebulizer treatment per the Primary Care team. 4. Chronic kidney disease. Aware. 5. Obesity. Aware. 6. The patient is counseled to quit alcohol completely. 7. Tobacco abuse. Encouraged to quit smoking completely. 8. Osteoarthritis. Aware. 9. Hypertension being managed by the Primary Care team. 10. Gastrointestinal prophylaxis with Protonix once daily. He is on Librium 10 mg oral three times a day for alcohol withdrawal. 11. Will call Hematology team for workup of thrombocytopenia. The above plans discussed with the patient and nursing staff, and all questions answered. Please call us with any further questions. cc: MD Chris Morrissey MD Raphael K. Quansah, MD
[2018-11-30 14:56] LABS: PTT 20.7 Seconds (22.3-41.8)
[2018-11-30] MEDS: ZOCOR PO SCH (20:03)
[2018-11-30] MEDS: FLOMAX PO SCH (20:03)
--- NOTE | 2018-11-30 20:05 | CARDIOLOGY CONSULTATION ---
DATE: 11/30/2018 CHIEF COMPLAINT: Apparently intoxicated. HISTORY OF PRESENT ILLNESS: Mr. Lazar is a 73-year-old male with a history of chronic alcohol abuse, tobacco abuse, COPD, chronic kidney disease who presents to the ER with confusion. Patient apparently was not a great historian on presentation and continues to not be a very good historian. During the course of the hospitalization. There has been some evaluation of a GI bleed. In addition, he was noted to convert into atrial fibrillation. Since that time, he has converted into sinus. He has no complaints presently. He seems more alert, although he does not give a very concise history his. PAST MEDICAL HISTORY: 1. Significant for COPD. 2. Peripheral arterial disease. 3. Osteoarthritis. 4. CKD. 5. Hypertension. 6. Chronic pain. 7. Chronic constipation. SOCIAL HISTORY: Heavy alcohol. He does smoke cigarettes as well. FAMILY HISTORY: Significant for hypertension. REVIEW OF SYSTEMS: A 10-system review of systems is negative except for those things as mentioned in HPI. PHYSICAL EXAMINATION: The patient has been afebrile during this hospitalization. Heart rate 92. His most recent blood pressure is 159/74.General: He is in no acute distress. HEENT: Oropharynx moist. Poor dentition. Eye examination is pink conjunctivae, white sclerae. Neck: Examination shows no obvious thyromegaly or thyroid tenderness. Cardiovascular: He sounds to be in a regular rate and rhythm currently. He has no obvious murmurs. He has no S3. He has no lower extremity edema. Chest: Exam is clear bilaterally. He has no increased work of breathing. Abdomen: Soft, nontender, nondistended. He has no obvious organomegaly. Skin: Warm and dry throughout without any rashes. PERTINENT DATA: He had an EKG on the that shows atrial fibrillation with rapid ventricular response. He has what appears to be a right bundle branch block present as well. His subsequent EKG today at 1020 shows sinus rhythm, occasional PVCs, right bundle branch block. He had an echocardiogram on the that demonstrates a normal ejection fraction of 60%. He has no clear evidence of significant valvular disease. His aorta was 4.3 cm. Lab data shows a white count of 5.6, hematocrit 38, platelet count is 42,000. His sodium is 135, potassium 5.4, BUN 23, creatinine is 1.3. His proBNP is 2720, albumin is 2.6. ASSESSMENT: Mr. Lazar is a 73-year-old gentleman who presents with altered mental status/confusion. He was found to have an episode of atrial fibrillation during the hospitalization as well as a GI bleed. PLAN: He is currently in sinus rhythm. I have discontinued the digoxin, checked a TSH for tomorrow. His echocardiogram was unremarkable. I would continue him on the diltiazem and the carvedilol for the time being. I have counseled him against quitting smoking as well as drinking. Likely atrial fibrillation is related to his alcohol intake. At this point, I do not have any further recommendations. Please contact us if we can be of further assistance. cc: MD Chris Rivera MD
--- NOTE | 2018-11-30 20:47 | HEMO/ONC CONSULTATION ---
DATE: 11/30/2018 CONSULTATION REQUESTED BY: Dr. Merchant. REASON FOR CONSULTATION: Consultation is for low platelet count. HISTORY OF PRESENT ILLNESS: Mr. Lazar is a 73-year-old male who has chronic alcohol abuse as well as chronic kidney disease. He presented to the emergency department with altered mental status. It was felt that he was intoxicated upon presentation. Once he was in the ER, he was reporting that he was having bright red blood per rectum. He was admitted to the hospital for further evaluation and treatment. On presentation, he had low platelets at a count of 83. His platelet count has now dropped to 42. The patient has been at this point, evaluated by GI. His hematochezia has resolved. The plan is to do colonoscopy but it seems like there is more planning to do that as an outpatient at this time. PAST MEDICAL HISTORY: 1. COPD. 2. PAD. 3. Osteoarthritis. 4. Chronic kidney disease, stage 3. 5. Hypertension. 6. History of diverticulosis. 7. Chronic pain disorder. 8. Alcohol abuse. PAST SURGICAL HISTORY: Positive for appendectomy, tonsillectomy and bilateral hip surgeries. He also has a history of a jaw surgery in the past. SOCIAL HISTORY: Patient is a heavy daily alcohol drinker. He denies any illicit drug or tobacco use. FAMILY HISTORY: No noted family history of any blood disorders. REVIEW OF SYSTEMS: Twelve point review of systems has been completed and negative except for what is expressed in the HPI. PHYSICAL EXAMINATION: Vital Signs: Temperature 99.0, heart rate 90, respirations 17, blood pressure 166/83, O2 saturations 98% on 4 L nasal cannula. General: This is a gentleman sitting up in his hospital bed in the ICU. Eating lunch. He is in no acute distress. HEENT: Head normocephalic, atraumatic. Eyes: Pupils equal, round, reactive. Ears, nose, throat, neck, and mouth: Oral mucosa appears to be normal. Gross auditory acuity is intact. Cardiovascular: S1, S2 heard. No murmurs, gallops, rubs appreciated. Respiratory: Chest is clear. Gastrointestinal: Abdomen is soft. Positive bowel sounds. Musculoskeletal: No bony abnormalities. Extremities: Some bilateral extremity edema noted. Neurologic: Patient is alert with no obvious focal motor deficits at this time. LABS AND STUDIES: White blood cells 5.67, hemoglobin 12.4, hematocrit 38.3, platelet count 42. Sodium 135, potassium 5.4, chloride 103, CO2 of 26, BUN 23, creatinine 1.3, glucose 130, B12 is 368. Folate is 13.2. ASSESSMENT AND PLAN: 1. Thrombocytopenia. The patient's MPV is normal to high which would indicate he has normal bone marrow function. He does have a history of alcohol abuse. Excessive sequestration from splenomegaly as well as bone marrow toxicity from chronic alcohol use. The patient also in the hospital in the ICU for a gastrointestinal bleed. He could also have decreased platelets due to that. However, his bleeding has completely stopped per the patient's report and also per hospital notes. We are going to go ahead and check a fibrinogen and PTT to complete his workup. No need for platelets at this time as he has no active bleeding. Would recommend transfusing platelets if he does start to have active bleeding. The goal would be to keep his platelet count above 50,000 if he has active bleeding. Otherwise, keep platelet count above 20,000. We will follow up on results and continue to adjust our plan per the patient's hospital course. 2. Altered mental status. He is believed to have alcohol intoxication upon presentation but has also had withdrawal symptoms throughout his hospital course. Management per the primary team. 3. Atrial fibrillation with rapid ventricular rate. Presumably related to his alcohol withdrawal. He is currently on Cardizem. He is in sinus rhythm. 4. Acute on chronic renal failure. Continue per the primary team. Thank you for consulting us on Mr. Lazar. We will continue to follow along. Dictated by ANJALI Mccauley for Christina Valladares MD cc: MD Chris Pereyra MD I have seen and examined the patient. The above note reflects my history, physical, assessment and plan. Christina PEREZ
[2018-11-30] MEDS: PHENERGAN IV PRN (21:24)
[2018-11-30] MEDS: ATIVAN IV PRN (21:24)
[2018-12-01] MEDS: CARDIZEM PO SCH ×3 (01:10→14:47)
[2018-12-01] MEDS: MORPHINE IV PRN (01:17)
[2018-12-01] MEDS: ATIVAN IV PRN (02:32)
[2018-12-01] MEDS: NEURONTIN PO SCH (08:45)
[2018-12-01] MEDS: COREG PO SCH (08:45)
[2018-12-01] MEDS: THERA M PLUS PO SCH (08:45)
[2018-12-01] MEDS: VITAMIN B-1 PO SCH (08:45)
[2018-12-01] MEDS: PROTONIX PO SCH (08:46)
[2018-12-01] MEDS: LEVAQUIN PO SCH (08:46)
[2018-12-01] MEDS: PREDNISONE PO SCH (08:46)
[2018-12-01] MEDS: LOKELMA POWDER PACKET PO SCH (08:47)
[2018-12-01] MEDS: MIRALAX PO SCH (08:47)
[2018-12-01] MEDS: LIBRIUM PO SCH ×2 (08:49→12:48)
[2018-12-01] MEDS: OXYCONTIN PO SCH (08:55)
[2018-12-01] MEDS ORDERED: LANOXIN PO SCH (09:00)
--- NOTE | 2018-12-01 10:37 | PROVIDER PROGRESS NOTE ---
Progress Note SUBJECTIVE: Patient denies any complaints this AM. He would like to be discharged home. OBJECTIVE Last Vital Signs Temp 98.7 F 12/01/18 08:00 Pulse 93 H 12/01/18 10:00 Resp 15 12/01/18 10:00 BP 130/78 12/01/18 10:00 Pulse Ox 99 12/01/18 10:00 Height 5 ft 11 in Weight 222 lb GEN: awake, alert, NAD HEENT: anicteric, MMM, EOMI NECK: supple, no jvd or LAD CV: RRR, no murmurs PULM: CTAB, no crackles ABD: obese, soft NT/ND, NABS, no ascites EXT: no cce NEURO: nonfocal LABS: pending A/P: Mr. Coleman Lazar is a 73 year old man with history of ETOH abuse, COPD, CKD3, OA, HTN, diverticulosis, h/o bleeding hemorrhoids, tobacco abuse who presented with AMS in the setting of alcohol intoxication, COPD exacerbation, and rectal bleeding. Other findings included low bicarb and hyperkalemia likely 2/2 to volume depletion and ETOH. Hematochezia resolved; likely hemorrhoidal. He had colonoscopy with Dr. Brito in 2017. # Hematochezia: ddx includes diverticular, hemorrhoids, AVM; less likely UGIB; resolved - recommend outpatient diagnostic colonoscopy # ETOH intoxication: resolved; give oral thiamine and folate upon discharge # COPD exacerbation: treatment per primary # Hyperkalemia: resolved # HTN: stable # CKD3: stable; renally dose meds # Thrombocytopenia: likely 2/2 to alcoholism; hold blood thinners and lovenox; hematology consulted Patient can be discharged from [facility] with follow-up with Dr. Brito. Will sign off. Please call with questions
[2018-12-01 10:39] LABS: BASO# 0.01 X1000 (0.0-0.2); BASO% 0.1 % (0.0-0.8); EOS# 0.13 X1000 (0.0-0.7); EOS% 1.9 % (0.0-10.0); HEMATOCRIT 37.1 % (42.0-52.0); IMM GRAN# 0.03 X1000 (0.0-0.04); IMM GRAN% 0.4 % (0.0-0.5); LYMPH% 20.6 % (20.5-51.1); MCH 31.5 PG (27-31); MCHC 32.3 g/dL (33-37); MCV 97.4 FL (81-99); MONO# 0.57 X1000 (0.11-0.59); MONO% 8.4 % (1.7-9.3); MPV 10.6 FL (7.4-10.4); NEUT# 4.67 X1000 (1.4-6.5); NEUT% 68.6 % (42.2-75.2); PLT 54 X1000 (130-400); RBC 3.81 XMIL (4.7-6.1); RDW 13.7 % (11.5-14.5); WBC 6.81 X1000 (4.8-10.8)
[2018-12-01 11:11] LABS: ALBUMIN 2.7 g/dL (3.5-5.0); CALCIUM 8.1 mg/dL (8.8-10.2); CREATININE 1.4 mg/dL (0.7-1.2); POTASSIUM 3.8 mmol/L (3.5-5.1); TOTAL BILIRUBIN 0.51 mg/dL (0.20-1.00); TOTAL PROTEIN 5.5 g/dL (6.3-8.3)
[2018-12-01 15:23] VITALS: BP 134/74
--- NOTE | 2018-12-01 15:44 | CARDIOLOGY PROGRESS NOTE ---
DATE: 12/01/2018 SUBJECTIVE: Mr. Lazar is apparently going home today. He has no complaints presently. PHYSICAL EXAMINATION: Vital Signs: He is afebrile. Heart rate is 84. He is in sinus. His blood pressure is 134/74. General: He is in no acute distress. Cardiovascular: He sounds to be in a regular rate and rhythm. He has no murmurs. He has no S3. He has no lower extremity edema. Chest: Clear bilaterally. He has no increased work of breathing. Abdomen: Soft, nontender. PERTINENT DATA: White count 6.8, his hematocrit is 37, his platelet count is 54. His sodium is 142, potassium 3.8, BUN 20, creatinine is 1.4. ASSESSMENT: Mr. Lazar is a 73-year-old gentleman, who presented with alcohol intoxication. Subsequently found to have a gastrointestinal bleed, and developed an episode of atrial fibrillation during the hospitalization. PLAN: His ejection fraction is normal. He had a TSH which was normal. He is not a candidate for anticoagulation until he completes his gastroenterology evaluation. I have a left him instructions to have [facility] after Gastroenterology does their full evaluation. He may stay on the medications that he is currently on. cc: MD Chris Rivera MD
--- NOTE | 2018-12-02 16:01 | DISCHARGE SUMMARY ---
ADMISSION DATE: 11/27/2018 DISCHARGE DATE: 12/01/2018 DISPOSITION: Is home. FOLLOWUP: Will be patient PCP. Dr. Tez Oneal. CONSULTATION: 1. GI was consulted, patient was seen by Dr. Claire. 2. Hematology/Oncology was consulted patient was seen by Dr. Valladares. 3. Cardiology was consulted patient was seen by Dr. Tez Oneal. INVASIVE PROCEDURES: None. IMAGING STUDIES OF SIGNIFICANT: A CT scan of the abdomen and pelvis was unremarkable for any acute disease. A chest x-ray showed cardiomegaly with mild pulmonary edema. Echocardiogram did show ejection fraction of 60% with no wall motion abnormality. ADMISSION DIAGNOSIS: 1. Gastrointestinal bleed. 2. Abdominal pain. 3. Chronic kidney disease stage 3. 4. History of chronic obstructive pulmonary disease. DISCHARGE DIAGNOSIS: 1. Altered mental status on presentation secondary to alcohol intoxication. 2. Alcohol withdrawal symptoms during the hospital course. 3. New onset of atrial fibrillation with rapid ventricular response presumably related to alcohol withdrawal. Patient was evaluated by Cardiology. 4. Normocytic anemia initially thought to be related to gastrointestinal bleed. Patient was evaluated by gastrointestinal, no need for any intervention, hemoglobin and hematocrit were stable. 5. Thrombocytopenia secondary to alcohol side effects. 6. Acute on chronic renal failure. 7. Ongoing tobacco abuse. 8. History of chronic obstructive pulmonary disease with mild exacerbation during the hospital course. 9. Congestive heart failure with preserved ejection fraction most likely related to tachyarrhythmias (atrial fibrillation). 10. Generalized weakness and deconditioning, patient was evaluated by PT. DISCHARGE MEDICATIONS: 1. Tamsulosin 0.4 p.o. at bedtime. 2. Oxycodone 30 mg p.o. daily. 3. Simvastatin 40 mg p.o. at bedtime. 4. Gabapentin 600 mg p.o. daily. 5. Carvedilol 25 mg b.i.d. 6. Albuterol inhaler. 7. Furosemide has been discontinued. 8. Lisinopril 40 mg p.o. daily. 9. Prednisone 20 mg daily. 10. Cardizem 180 p.o. daily. 11. Levofloxacin 500 p.o. daily. 12. Pantoprazole 40 mg p.o. daily. 13. Thiamine 100 mg p.o. daily. PRESENTING COMPLAINT: Was intoxication and altered mental status. HISTORY PRESENTING COMPLAINT: Mr. Lazar is a 73-year-old male who is known to be using a lot of alcohol is also chronic smoker, COPD and chronic pain disorder, came to emergency department because the sister called EMS to go and check on him. When he was brought to emergency room he kept repeating please do not let me I because I drink alcohol please not let me . He was remarkably confused. He was initially admitted to [facility], there was a description that he had vomited some blood so he was transferred to [facility] for higher level of care. HOSPITAL COURSE: Mr. Lazar was admitted initially to the ICU, was started on Protonix and fluid resuscitated, was group and crossmatch but not transfused, was evaluated by GI. GI did not think that there was any acute ongoing GI bleed so no intervention was recommended. He did improve remarkably well during the hospital course. He did show some signs of withdrawal during the ICU stay so he was started on the withdrawal protocol. He responded well. He started eating. He did some therapy with PT. He was evaluated by Heme-Onc because of low platelet but we thought this was all related to chronic alcohol use. Today Mr. Lazar is doing a lot better. He is tolerating his meals. He had good bowel movement. We think he is stable for discharge. He has been advised on alcohol and smoking cessation. During the hospital course it did appear that he was having some mild COPD exacerbation and he was treated accordingly. He did have an episode of atrial fibrillation, RVR and Cardiology was consulted. Patient was started on Cardizem and beta shonda but he was not a candidate for anticoagulation because of alcohol use and multiple history of falls because of alcohol abuse. All the discharge instructions have been discussed with Mr. Lazar. TIME SPENT: 37 minutes. cc: MD Chris Rivera MD
== END 2018-12-01 15:55 | disposition home or self-care (01) | DRG 378 ==
LOC: P.ED 21:30 → SUATTDRO 11-27 09:53 → P.ICU 11-27 09:53 → ICU 11-27 10:08
PROVIDERS: ADMIT Internal Medicine; ATTEND Internal Medicine
CPT/HCPCS: 71010; 71045; 74176; 80048; 80053; 80069; 80307; 80320; 81001; 82055; 82140; 82150; 82607; 82728; 82746; 82805; 83540; 83550; 83690; 83735; 83880; 84443; 85014; 85018; 85025; 85027; 85384; 85610; 85730; 86140; 86850; 86900; 86901; 93005; 93010; 93306; 94640; 94761; 96361; 96365; 96367; 96375; 97162; 97530; 99285; A9270; C8929; C9113; G0480; G6040; J1815; J2060; J2270; J2550; J3411; J3475; J7030; J7070; J7506; J7512; Q9957; S0164

== ENCOUNTER 2019-02-20 11:24 | Inpatient (IN) ==
[2019-02-20 12:21] LABS: BASO# 0.03 X1000 (0.0-0.2); BASO% 0.6 % (0.0-0.8); EOS# 0.64 X1000 (0.0-0.7); EOS% 12.5 % (0.0-10.0); HEMATOCRIT 34.3 % (42.0-52.0); HEMOGLOBIN 11.3 g/dL (14.0-18.0); IMM GRAN# 0.01 X1000 (0.0-0.04); IMM GRAN% 0.2 % (0.0-0.5); LYMPH# 1.89 X1000 (1.2-3.4); LYMPH% 36.9 % (20.5-51.1); MCH 30.5 PG (27-31); MCHC 32.9 g/dL (33-37); MCV 92.5 FL (81-99); MONO# 0.62 X1000 (0.11-0.59); MONO% 12.1 % (1.7-9.3); MPV 9.6 FL (7.4-10.4); NEUT# 1.93 X1000 (1.4-6.5); NEUT% 37.7 % (42.2-75.2); PLT 63 X1000 (130-400); RBC 3.71 XMIL (4.7-6.1); RDW 13.3 % (11.5-14.5); WBC 5.12 X1000 (4.8-10.8)
[2019-02-20 12:36] LABS: OCCULT BLOOD 1 NEGATIVE (NEGATIVE)
[2019-02-20 12:41] LABS: URINE SOURCE CLEAN CATCH
--- NOTE | 2019-02-20 12:43 | Diag Imaging Result Doc PS360 ---
EXAM: CT ABDOMEN/PELVIS W/O CONTRAST 02/20/2019 HISTORY: abdo pain TECHNIQUE: This exam was performed using automated exposure control, adjustment of mA or kV according to patient size, and/or use of iterative reconstruction technique. COMMENT: The current study is compared with the previous examination of 11/27/2018. There are extensive coronary calcifications. There is a platelike opacity in the inferior lingula which has not changed since the previous study and is presumably fibrotic. There is a cyst in the upper pole of the left kidney. There is a cyst in the lower pole of the right kidney. There are some vascular calcifications in the right kidney. There is no evidence of nephrolithiasis. No evidence of hydronephrosis is present. There are atherosclerotic calcifications in the aorta. There is slight dilatation of the abdominal aorta distally just above the bifurcation to a maximum AP diameter of 2.3 cm. This is not changed significantly since the previous study. The proximal left common iliac artery is also distended as it was previously. There are bilateral hip prostheses. The urinary bladder is distended as it was at the time the previous study. There is no evidence of free fluid. There is some diverticulosis in the distal descending and sigmoid colon without evidence of acute diverticulitis. The colon and small bowel are not distended. There has apparently been appendectomy. There are spondylotic changes in the lumbar spine which were also present previously. IMPRESSION: Essentially stable since 11/27/2018. No evidence of acute disease. Electronically signed by Javier Mendez 02/20/2019 12:41 PM
--- NOTE | 2019-02-20 12:48 | Diag Imaging Result Doc PS360 ---
EXAM: CHEST-1 VIEW 02/20/2019 HISTORY: wheezing TECHNIQUE: AP chest at 1154. COMMENT: The inspiration is better than on 11/30/2018. The heart size is slightly enlarged. There is ill-defined opacity partially obscuring the left heart border presumably in the lingula. This appearance was also present on 11/03/2018. IMPRESSION: Cardiomegaly. Stable chest. Electronically signed by Javier Mendez 02/20/2019 12:45 PM
[2019-02-20 12:49] LABS: BILIRUBIN URINE NEGATIVE (NEGATIVE); BLOOD URINE NEGATIVE (NEGATIVE); CLARITY CLEAR (CLEAR); COLOR YELLOW; GLUCOSE URINE NEGATIVE (NEGATIVE); KETONE URINE NEGATIVE (NEGATIVE); LEUKOCYTES URINE TRACE (NEGATIVE); NITRITE URINE NEGATIVE (NEGATIVE); PROTEIN URINE 2+(100 mg/dL) mg/dL (NEGATIVE); UROBILINOGEN URINE NORMAL
[2019-02-20 12:52] LABS: ALBUMIN 3.4 g/dL (3.5-5.0); CALCIUM 8.1 mg/dL (8.8-10.2); CREATININE 3.7 mg/dL (0.7-1.2); POTASSIUM 5.5 mmol/L (3.5-5.1); TOTAL BILIRUBIN 0.6 mg/dL (0.20-1.00); TOTAL PROTEIN 6.3 g/dL (6.3-8.3)
[2019-02-20 12:52] LABS: URINE BACTERIA 1+ /HFP; URINE CAST NONE SEEN /LPF; URINE CRYSTAL CA CARBONATE PRESENT /HPF; URINE EPITHELIAL CELLS >10 /HPF (<10); URINE RBC <10 /HPF (<10); URINE WBC <10 /HPF (<10); URINE YEAST NONE SEEN /HPF
[2019-02-20] MEDS ORDERED: KAYEXALATE PO ONE (13:12)
[2019-02-20] MEDS ORDERED: THIAMINE 100 MG in NS 50 ML IV ONE (13:12)
--- NOTE | 2019-02-20 13:12 | PROVIDER DOCUMENTATION ---
This chart was entered by Markell Dao Scribe, acting as scribe for Gee Chung MD. HPI-General Adult - General Chief Complaint: Weakness Stated Complaint: Weakness/ABD pain x 1 week Time Seen by Provider: 02/20/19 11:25 Source: patient, EMS Allergies/Adverse Reactions: Patient Allergies Allergy/AdvReac Type Severity Reaction Status Date / Time No Known Allergies Allergy Verified 11/21/18 14:43 Home Medications: Home Medication List Medication Instructions Recorded Confirmed Last Taken Type Tamsulosin [Flomax] 0.4 mg PO HS 11/30/13 02/20/19 11/19/18 History Oxycodone HCl 30 mg PO DAILY 06/17/16 02/20/19 11/21/18 History SIMVAstatin [Zocor] 40 mg PO QHS 06/22/16 02/20/19 11/20/18 History Gabapentin 600 mg PO DAILY 05/19/17 02/20/19 11/21/18 History Carvedilol 25 mg PO BID 08/04/18 02/20/19 11/20/18 History Albuterol [Albuterol Neb] 2.5 mg INH TID 09/05/18 02/20/19 11/20/18 History Lisinopril 40 mg PO DAILY 11/27/18 02/20/19 Unknown History Diltiazem L.a. [Cardizem LA] 180 mg PO DAILY #120 tab 12/01/18 02/20/19 Unknown Rx Multivit,Fe,Ca,FA & Min [Thera M 1 ea PO DAILY #120 tab 12/01/18 02/20/19 Unkn own Rx Plus] Thiamine [Vitamin B-1] 100 mg PO DAILY #120 tab 12/01/18 02/20/19 Unknown Rx - History of Present Illness -Gen Adult Nature of Presenting Problems: Pt is a 73 yom who presents to the ED via EMS with a CC of weakness. Pt states he went to an urgent care center for his symptoms and they sent him to the ED. EMS reports a blood pressure of 96/42 prior to arrival to the ED. Pt states his weakness started approximately one week ago. Pt also complains of lower abdominal pain. Pt reports a hx of COPD and CHF. Pt also reports a hx of arth ritis in his back. Pt states he is a 1 ppd smoker and consumes etoh every day. Pt reports drinking one pint of etoh in the last 24 hours. Upon examination the pt had wheezing on his right side, 2+ edema in his lower extremities, and RLQ and LLQ abdominal tenderness to palpation. Location of Pain/Injury: reports: abdomen, other (See HPI) Quality of Pain: reports: dull Severity: reports: mild Onset/Duration: reports: 1 week ago Timing: reports: still present Associated Symptoms: reports: shortness of breath, weakness, trouble walking Similar Symptoms Previously?: Yes Recently seen or treated by another doctor?: Yes Review of Systems - Adult - REVIEW OF SYSTEMS - ADULT Constitutional: reports: see HPI Eyes: reports: no symptoms reported Ears, Nose, Mouth & Throat: reports: no symptoms reported Cardiovascular: reports: see HPI Respiratory: reports: see HPI, shortness of breath, wheezing Gastrointestinal: reports: see HPI, abdominal pain Genitourinary: reports: no symptoms reported Musculoskeletal: reports: see HPI, muscle weakness Integumentary: reports: no symptoms reported Neurological: reports: see HPI Psychiatric: reports: no symptoms reported Endocrine: reports: no symptoms reported Hematologic/Lymphatic: reports: no symptoms reported Allergic/Immunologic: reports: no symptoms reported All Other Systems: Reviewed and Negative Past History - Adult - PAST MEDICAL HISTORY-ADULT Review of Records: reports: Old Records Reviewed, Nursing Assessment Review, Medications Reviewed, Social history reviewed & non-contributory. Major Childhood Illnesses: reports: denies history Cardiovascular: reports: denies history Respiratory: reports: denies history Gastrointestinal: reports: denies history Obstetrical/Gynecological: reports: denies history Genitourinary: reports: denies history Musculoskeletal: reports: denies history Neurological: reports: denies history Endocrine/Immune: reports: denies history Other Conditions: reports: denies history - IMMUNIZATION STATUS Childhood Immunizations: See Nurse Assessment Flu Vaccine: See Nurse Assessment - FAMILY HISTORY Family History: reviewed, not pertinent - SOCIAL HISTORY Smoking: cigarettes, greater than 1 pack/day Substance Use: alcohol Alcohol Use Frequency: every day Physical Exam-General - PHYSICAL EXAM-ADULT Initial Vital Signs Reviewed: Yes - CONSTITUTIONAL General Appearance: alert, mild distress - EYES Eyes: PERRL/EOMI, pink conjunctivae - NECK Neck: non-tender, full range of motion - RESPIRATORY Respiratory: chest non-tender, wheezing - CARDIOVASCULAR Cardiovascular: normal peripheral pulses - GASTROINTESTINAL (ABDOMEN) Abdominal Exam: tenderness (RLQ, LLQ) - MUSCULOSKELETAL Extremity: normal range of motion, non-tender, swelling - SKIN Integumentary: normal color, warm/dry, swelling - NEUROLOGIC Neurologic: grossly normal, no motor/sensory deficits - PSYCHIATRIC Psych/Mental Status: normal mood/affect Progress - PLAN OF CARE/RESULTS Progress/Plan/Lab Results: Vital Signs - 8 hr 02/20/19 11:26 Temperature 97.6 F Pulse Rate 69 Respiratory Rate 12 Blood Pressure 118/062 O2 Sat by Pulse Oximetry 97 Orders Category Date Time Status Nursing- Obtain EKG ONCE Care 02/20/19 11:20 Active ALCOHOL BLOOD Stat Lab 02/20/19 11:20 Uncollected AMYLASE [CHEM] Stat Lab 02/20/19 11:20 Ordered CBC WITH ELECTRONIC DIFF [HEME] Stat Lab 02/20/19 11:20 Uncollected COMPREHENSIVE METABOLIC PANEL [CHEM] Stat Lab 02/20/19 11:20 Uncollected LIPASE [CHEM] Stat Lab 02/20/19 11:20 Uncollected OCCULT BLOOD SCREEN STOOL PL Stat Lab 02/20/19 11:20 Uncollected TROPONIN T Stat Lab 02/20/19 11:20 Ordered URINALYSIS [URINALYSIS] Stat Lab 02/20/19 11:20 Uncollected EKG [EKG] Stat Ther 02/20/19 11:20 Ordered Result Diagrams: 02/20/19 12:08 02/20/19 12:08 - EKG 1 Time of EKG reading by physician:: 11:39 EKG Read and Signed by:: Gee Chung EKG Interpretation (*Must complete 3 of following elements*): Abnormal (Right bundle branch block) Rate: 65 Rhythm: NSR [place]: right QRS: normal [place] Interval: normal ST Wave: normal - XRAY 1 XRAY: Bilateral XRAY Study: Chest Impression: See EMR Report (EXAM: CHEST-1 VIEW 02/20/2019 HISTORY: wheezing TECHNIQUE: AP chest at 1154. COMMENT: The inspiration is better than on 11/30/2018. The heart size is slightly enlarged. There is ill-defined opacity partially obscuring the left heart border presumably in the lingula. This ap pearance was also present on 11/03/2018. IMPRESSION: Cardiomegaly. Stable chest. Electronically signed by Javier Mendez 02/20/2019 12:45 PM 02/20/19 8502 Interpreting Physician: Javier Mendez MD Dictated Date/Time: 02/20/19 1244 cc: Gee Chung MD; None,PCP) - CT/MRI 1 CT Study: Abdomen, Pelvis Impression: See EMR Report (EXAM: CT ABDOMEN/PELVIS W/O CONTRAST 02/20/2019 HISTORY: abdo pain TECHNIQUE: This exam was performed using automated exposure control, adjustment of mA or kV according to patient size, and/or use of iterative reconstruction technique. COMMENT: The current study is compared with the previous examination of 11/27/2018. There are extensive coronary calcifications. There is a platelike opacity in the inferior lingula which has not changed since the previous study and is presumably fibrotic. There is a cyst in the upper pole of the left kidney. There is a cyst in the lower pole of the right kidney. There are some vascular calcifications in the right kidney. There is no evidence of nephrolithiasis. No evidence of hydronephrosis is present. There are atherosclerotic calcifications in the aorta. There is slight dilatation of the abdominal aorta distally just above the bifurcation to a maximum AP diameter of 2.3 cm. This is not changed significantly since the previous study. The proximal left common iliac artery is also distended as it was previously. There are bilateral hip prostheses. The urinary bladder is distended as it was at the time the previous study. There is no evidence of free fluid. There is some diverticulosis in the distal descending and sigmoid colon without evidence of acute diverticulitis. The colon and small bowel are not distended. There has apparently been appendectomy. There are spondylotic changes in the lumbar spine which were also present previously. IMPRESSION: Essentially stable since 11/27/2018. No evidence of acute disease. Electronically signed by Javier Mendez 02/20/2019 12:41 PM) - CONSULTS/PCP/HOSPITALIST Notification #1 *Consult/PCP/Hospitalist*: Dr Hlaey Time Discussed: 13:11 Consult Disposition: Will see in ED, Admit Departure - Departure Date of Disposition Decision: 02/20/19 Time of Disposition Decision: 13:09 DIAGNOSIS: COPD (chronic obstructive pulmonary disease), Tobacco use disorder, continuous, Dehydration syndrome, Hyperkalemia, Hyponatremia, Renal insufficiency, Alcohol abuse, Elevated LFTs Disposition: ADMITTED INPATIENT 09 Certified Medical Emergency: Emergent Condition: Fair Additional Freetext Instructions: ED Follow Up Instructions: You have been treated by a care provider in the Emergency Department. These instructions are being provided to you so you can have an understanding of how to care for yourself upon discharge. Upon discharge from the Emergency Department, you are responsible for making arrangements for follow-up care by a physician of your choice. Take all prescribed medications as directed. Return to the Emergency Department immediately for any new or worsening symptoms. You may call the Physician Referral phone number at [phone] to obtain a list of Physicians who are taking new patients. Referrals and Follow-Ups: None,PCP [Primary Care Provider] - - Critical Care Note This patient required my direct & personal management of CC.: No Attestation - Physician/ SKYLA Attestation Patient care was provided by Advanced Practice Provider:: No The physician spent face to face time with patient:: Yes Advanced Practice Provider documentation review:: Supervising physician onsite and consulted in the evaluation and care of this patient. The physician did have a face to face encounter with the patient. This chart was documented by the indicated scribe, (Markell Dao, Scribe) and accurately reflects the services I performed and decisions made by me, Gee Chung MD, as attested by the provider's signature.
[2019-02-20] MEDS ORDERED: FLOMAX PO ONE (14:31)
[2019-02-20] MEDS ORDERED: ZOFRAN IV PRN (14:32)
[2019-02-20] MEDS ORDERED: CALCIUM GLUCONATE 1 GM in NS 50 ML IV ONE (14:39)
[2019-02-20] MEDS ORDERED: SODIUM BICARBONATE 8.4% IV PUSH ONE (14:39)
[2019-02-20] MEDS ORDERED: HUMULIN R IV ONE (14:39)
[2019-02-20] MEDS ORDERED: D50W SYRINGE IV ONE (14:40)
[2019-02-20] MEDS ORDERED: HUMULIN R (PARKWAY) ONE (14:46)
[2019-02-20] MEDS ORDERED: ALBUTEROL NEB INH SCH (15:00)
[2019-02-20] MEDS ORDERED: DUONEB (A & A) INH PRN (15:05)
[2019-02-20 15:12] LABS: PHOSPHORUS 3.5 mg/dL (2.7-4.5)
[2019-02-20] MEDS: DUONEB (A & A) INH SCH ×3 (15:24→23:05)
[2019-02-20 15:30] LABS: ALBUMIN 3.5 g/dL (3.5-5.0); CALCIUM 8.1 mg/dL (8.8-10.2); CREATININE 3.6 mg/dL (0.7-1.2); PHOSPHORUS 3.6 mg/dL (2.7-4.5); POTASSIUM 5.4 mmol/L (3.5-5.1)
[2019-02-20] MEDS ORDERED: MAGNESIUM SULFATE IV ONE (15:30)
[2019-02-20] MEDS ORDERED: DUONEB (A & A) INH SCH (15:30)
[2019-02-20] MEDS ORDERED: FOLIC ACID IV ONE (15:30)
[2019-02-20] MEDS ORDERED: NS IV ONE (15:30)
[2019-02-20] MEDS ORDERED: M V I IV ONE (15:30)
[2019-02-20] MEDS ORDERED: LOKELMA POWDER PACKET PO ONE (15:55)
--- NOTE | 2019-02-20 15:56 | HISTORY AND PHYSICAL ---
CHIEF COMPLAINT: Weakness and lower abdominal pain. HISTORY OF PRESENT ILLNESS: This is a 73-year-old gentleman with a history of chronic kidney disease stage 3, COPD, chronic alcohol use and abuse, thrombocytopenia and congestive heart failure with a preserved ejection fraction. He presents to the emergency room complaining of feeling bad for the last week, stating that he has had low abdominal pain specifically suprapubic. He has had difficulty voiding. He complains of frequency and urgency with frequent double voiding the last 2 to 3 nights. He states over the last 24 hours he has to push hard to get urine to empty his bladder. He does have BPH and he is on Flomax, which he has not taken in a few nights. CT of the abdomen and pelvis revealed no evidence of acute disease. The patient states that he drinks daily usually. He drinks 1 pint of alcohol every 24 hours. He did state the last time he drank was last night. He does smoke about a pack a day. PAST MEDICAL HISTORY: 1. Chronic kidney disease stage 3. 2. History of chronic obstructive pulmonary disease. 3. Benign prostatic hypertrophy. 4. Alcohol use and abuse. 5. Thrombocytopenia secondary to alcohol side effects. 6. Congestive heart failure with preserved ejection fraction of 60% in November of 2018. 7. History of atrial fibrillation. 8. Ongoing tobacco use and abuse. 9. Chronic pain disorder. 10. Peripheral neuropathy. PAST SURGICAL HISTORY: Appendectomy, jaw surgery, tonsillectomy, and bilateral hip surgery. SOCIAL HISTORY: He smokes about a pack a day. He is a heavy alcohol user using at least a pint of vodka a day. He is . He denies any illicit drug use. ALLERGIES: No documented allergies. HOME MEDICATIONS: A list will be obtained by the nursing staff, and once verified will review and restart as appropriate. REVIEW OF SYSTEMS: Discussed with patient with pertinent positives stated in the HPI. He denied any syncope, dizziness, chest pain, palpitations, shortness of breath, cough, fever, chills, any night sweats, any nausea, vomiting, diarrhea, constipation, black or bloody vomitus or stools, any gross hematuria, or dysuria. PHYSICAL EXAMINATION: GENERAL: This is a 73-year-old gentleman who is sitting up on the stretcher in the emergency room in no distress. VITAL SIGNS: Blood pressure 125/63 with a heart rate of 83, respirations 18, temperature is 97.6 degrees with room air sats 95 to 98 percent. EYES: Pupils are equal, round, and reactive to light. EOMs are intact. Sclerae are anicteric. HEENT: Head is normocephalic, atraumatic. Mucous membranes are moist. NECK: Supple with trachea midline. CARDIOVASCULAR: Regular rate and rhythm. S1 and S2 appreciated. Calves are nontender bilateral with peripheral pulses palpable x4 extremities. PULMONARY: Breath sounds shows he has got expiratory wheezes scattered throughout. Chest rises and falls symmetric with respiration. GASTROINTESTINAL: Abdomen is large. It is soft. He has got suprapubic tenderness that did relieve after double voiding. Bowel sounds are present in all 4 quadrants. SKIN: Warm and dry. He does have a petechial rash noted to his lower extremities up to his thighs. NEUROLOGIC: He is alert and oriented x3. LABORATORY DATA: 1. WBC is 5.1 with hemoglobin 11.3, hematocrit 34.3, and platelets of 63,000. Sodium is 131, potassium 5.5, CO2 17, BUN 95, creatinine 3.7, with a glucose of 113, AST 276, and ALT 664 with alkaline phosphatase of 150. Albumin is 3.4. Urinalysis reveals 2+ protein with less than 10 microscopic white blood cells, less than 10 microscopic red blood cells, greater than 10 epithelial cells, and 1+ bacteria. Stool for occult blood was negative. Blood alcohol is 167. Group A strep is negative. Urine culture is pending. 2. Chest x-ray reveals cardiomegaly. Stable chest. 3. CT of the abdomen and pelvis reveals no evidence of acute disease. ASSESSMENT AND PLAN: 1. Acute kidney injury overlying chronic kidney disease. This is very likely postobstructive as the patient has had difficulty emptying for about the last week. . Start Flomax b.i.d. The patient really requests not to have a Molina catheter at this time. PVR was checked after voiding, and he had a PVR of 469. On double void, he voided about 280 check a PVR , have the nurses call for greater than 300. Recheck labs in the morning. We will obtain a urine culture. 2. Hyperkalemia. He was given Kayexalate in the emergency room. We will give an amp of D50 and amp of bicarb, 10 units of regular insulin with a g of calcium gluconate now. Recheck labs in 4 hours. If potassium remains elevated, we will start Lokelma. electrolytes with magnesium and potassium daily. 3. Chronic obstructive pulmonary disease. DuoNeb q.4 hours as needed. 4. Alcohol use and abuse. monitor for any signs of withdrawal. Start Librium low-dose. He was given thiamin in the emergency room. supplement multivitamin as well as folic acid. If magnesium is normal, we will supplement magnesium. We did discuss alcohol cessation. The patient does voice understanding. 5. Dehydration.banana bag and gently hydrate through the night. 6. Elevated LFTs. We will trend daily We will hold his Zocor 7. Chronic pain. continue his home medications. 8. Hypertension. continue his home medications. 9. Rash. He does have a petechial rash to his bilateral lower extremities that has developed since arrival to the ER. Strep was negative. Monitor For DVT prophylaxis SCD's. holding off on any anticoagulation as he has thrombocytopenia. 10. GI prophylaxis. PPI. Further treatments pending hospital course. Plan was discussed with Dr. Haley. Dictated by ZBIGNIEW Potter for Hussein Haley MD cc: ZBIGNIEW Potter MD [facility]
[2019-02-20] MEDS: SODIUM BICARBONATE 8.4% 150 MEQ in D5W 1,000 ML IV SCH (16:58)
[2019-02-20 17:56] LABS: UR CREAT RANDOM 58.6 mg/dL (14-26); UR PROT RANDOM 38.6 mg/dL
--- NOTE | 2019-02-20 18:07 | HISTORY AND PHYSICAL ---
ADDENDUM: Patient seen and examined by myself. Full note dictated and discussed with nurse practitioner. Patient is having lower abdominal pain. It appears though he may have an obstructive uropathy. He does have kidney disease. He unfortunately drinks at least a pint of alcohol every 24 hours and smokes. Discussed with the patient the perils of both of these. We are going to admit him to the hospital, follow his bladder symptoms. We will watch him for withdrawal. He does have worsened renal dysfunction with a creatinine elevated at 3.7. We offered to transfer him to [facility] for urology and nephrology's assistance. However, patient currently has declined that. cc: Hussein Haley MD
[2019-02-20] MEDS: FOLIC ACID PO SCH (18:40)
[2019-02-20] MEDS: FLOMAX PO SCH (20:51)
[2019-02-20] MEDS: COREG PO SCH (20:52)
[2019-02-20 21:01] LABS: ALBUMIN 3.3 g/dL (3.5-5.0); CALCIUM 8.1 mg/dL (8.8-10.2); CREATININE 3.3 mg/dL (0.7-1.2); PHOSPHORUS 3.3 mg/dL (2.7-4.5); POTASSIUM 5.1 mmol/L (3.5-5.1)
[2019-02-20] MEDS ORDERED: ATIVAN IM ONE (21:06)
[2019-02-20] MEDS ORDERED: ATIVAN IV ONE (21:25)
[2019-02-20] MEDS: LIBRIUM PO ONE ×2 (21:34→21:35)
[2019-02-21] MEDS ORDERED: ATIVAN IV ONE (01:25)
[2019-02-21] MEDS ORDERED: NS 1,000 ML IV ONE (03:30)
[2019-02-21 05:57] LABS: BASO# 0.02 X1000 (0.0-0.2); BASO% 0.4 % (0.0-0.8); EOS# 0.65 X1000 (0.0-0.7); EOS% 13.1 % (0.0-10.0); HEMATOCRIT 31.9 % (42.0-52.0); HEMOGLOBIN 10.5 g/dL (14.0-18.0); IMM GRAN# 0.01 X1000 (0.0-0.04); IMM GRAN% 0.2 % (0.0-0.5); LYMPH# 1.72 X1000 (1.2-3.4); LYMPH% 34.7 % (20.5-51.1); MCH 30.3 PG (27-31); MCHC 32.9 g/dL (33-37); MCV 92.2 FL (81-99); MONO# 0.46 X1000 (0.11-0.59); MONO% 9.3 % (1.7-9.3); MPV 10.2 FL (7.4-10.4); NEUT# 2.09 X1000 (1.4-6.5); NEUT% 42.3 % (42.2-75.2); PLT 69 X1000 (130-400); RBC 3.46 XMIL (4.7-6.1); RDW 13.5 % (11.5-14.5); WBC 4.95 X1000 (4.8-10.8)
[2019-02-21 06:16] LABS: ALBUMIN 3.3 g/dL (3.5-5.0); CALCIUM 8.1 mg/dL (8.8-10.2); CREATININE 2.8 mg/dL (0.7-1.2); MAGNESIUM 1.7 mg/dL (1.5-2.7); PHOSPHORUS 3.7 mg/dL (2.7-4.5); POTASSIUM 5.1 mmol/L (3.5-5.1); TOTAL BILIRUBIN 0.7 mg/dL (0.20-1.00); TOTAL PROTEIN 5.7 g/dL (6.3-8.3)
--- NOTE | 2019-02-21 06:47 | EKG Report ---
Test Performed on : 02/20/2019 11:39:41 AM Test Reason : ER Blood Pressure : / mmHG Vent. Rate : 065 BPM Atrial Rate : 065 BPM P-R Int : 182 ms QRS Dur : 164 ms QT Int : 442 ms P-R-T Axes : 077 -12 -08 degrees QTc Int : 459 ms Normal sinus rhythm. Right bundle branch block Abnormal ECG When compared with ECG of 20-FEB-2019 11:38, (Unconfirmed) No significant change was found Unconfirmed Result
[2019-02-21] MEDS ORDERED: PRILOSEC PO SCH (07:00)
[2019-02-21] MEDS ORDERED: ROBAXIN PO PRN ×2 (07:04→16:34)
[2019-02-21] MEDS ORDERED: BENTYL PO PRN ×2 (07:04→16:34)
[2019-02-21] MEDS ORDERED: SALINE LOCK IV FLUID XX ONE (07:04)
[2019-02-21] MEDS ORDERED: ATARAX PO PRN ×2 (07:04→16:35)
[2019-02-21] MEDS: M.V.I.-12 10 ML, FOLIC ACID 1 MG, MAGNESIUM SULFATE 1 GM, THIAMINE 100 MG in NS 1,000 ML IV ONE ×2 (07:44→11:22)
[2019-02-21] MEDS ORDERED: LIBRIUM PO SCH (08:00)
[2019-02-21] MEDS: FOLIC ACID PO SCH (08:45)
[2019-02-21] MEDS ORDERED: CARDIZEM CD PO SCH (09:00)
[2019-02-21] MEDS ORDERED: OXYCONTIN PO SCH (09:00)
[2019-02-21] MEDS ORDERED: THERA M PLUS PO SCH (09:00)
[2019-02-21] MEDS ORDERED: VITAMIN B-1 PO SCH (09:00)
[2019-02-21] MEDS: SODIUM BICARBONATE 8.4% 150 MEQ in D5W 1,000 ML IV SCH (09:13)
[2019-02-21] MEDS: DUONEB (A & A) INH SCH ×5 (11:35→23:42)
--- NOTE | 2019-02-21 11:52 | Diag Imaging Result Doc PS360 ---
US ABDOMEN-COMPLETE - 02/21/2019 INDICATION: ora/ckd/lfts COMPARISON: CT from 02/20/2019 FINDINGS: The liver, gallbladder, spleen, pancreas, and both kidneys are normal. There are small bilateral renal cysts measuring up to 2.5 cm on the right and 2.6 cm on the left. Common bile duct measures 5 mm. Aorta, IVC, and main portal vein are patent. IMPRESSION: No acute disease. Electronically signed by Christos Castro 02/21/2019 11:49 AM
[2019-02-21] MEDS: FLOMAX PO SCH ×2 (12:42→22:21)
[2019-02-21] MEDS: COREG PO SCH ×2 (12:42→22:21)
--- NOTE | 2019-02-21 14:59 | GASTROENTEROLOGY CONSULTATION ---
DATE: 02/21/2019 REASON FOR CONSULTATION: Cirrhosis. HISTORY OF PRESENT ILLNESS: Mr. Coleman Lazar is a 73-year-old gentleman with past medical history of hypertension, CHF with preserved ejection fraction, COPD, CKD stage 3, history of atrial fibrillation, not on anticoagulation, alcoholism and tobacco abuse who presents as a transfer from [facility] where he was admitted for alcohol intoxication and worsening alcoholic liver disease. The patient reports going to an urgent care recently for multiple symptoms including cough, chills, lower abdominal pain, shortness of breath, polyuria, and dysuria. He says his symptoms are similar to what he has had with prior urinary tract infections. He reports drinking heavily over the last couple of weeks up to a pint of whiskey a day. On presentation to [facility], he was found to have acute on chronic kidney disease with a creatinine of 3.3, abnormal LFTs, and s serum alcohol level of 167. CT of the abdomen and pelvis was unremarkable for acute disease. There was no signs of ascites. Abdominal ultrasound is currently pending. REVIEW OF SYSTEMS: The patient reports about 5- 6 pounds of weight loss, some mild diarrhea is nonbloody. No nausea, vomiting, or chest pain. The rest of 12 point review of systems is negative. PAST MEDICAL HISTORY: As per HPI. Other medical history includes diverticulosis, hemorrhoids, peripheral neuropathy, BPH, thrombocytopenia. PAST SURGICAL HISTORY: Appendectomy, jaw surgery, tonsillectomy, bilateral hip surgery. SOCIAL HISTORY: Smokes about a pack a day. He continues to drink large amounts of alcohol regularly. He is , lives alone. No illicit drug use. FAMILY HISTORY: Notable for colorectal cancer in his father diagnosed at age of 46. The patient has had multiple colonoscopies followed by Dr. Brito as an outpatient. ALLERGIES: No known drug allergies. HOME MEDICATIONS: Have not been reconciled during this admission. Upon his last discharge the patient was on Cardizem, Protonix, multivitamin, thiamine,. tamsulosin, simvastatin, gabapentin, carvedilol, albuterol, promethazine, lisinopril, ranitidine, prednisone and oxycodone. PHYSICAL EXAMINATION: Vital Signs: Temperature is 97.9 degrees, heart rate of 74, respiratory rate 14, blood pressure 131/60, O2 saturation 96% on room air. General: The patient is awake, alert, oriented, in no acute distress. HEENT: Sclerae anicteric. Moist mucous membranes. Extraocular motor intact. Neck: Supple. No JVD or lymphadenopathy. Cardiac: Regular rate and rhythm. No murmurs, rubs, or gallops. Lungs: Clear to auscultation bilaterally. No wheezing. Abdomen: Obese, mild tenderness to palpation in the left lower quadrant. No rebound or guarding distractible. No ascites. Extremities: No clubbing, cyanosis, or edema. Neurologic: The patient is A and O x3. Cranial nerves II-XII grossly intact. Moving extremities symmetrically bilaterally. He does have some asterixis on exam. LABS: White count of 4.9, hemoglobin is 10.5, down from 12 on his prior discharge hemoglobin. Platelets of 69,000, MCV of 92.2. No recent INR. Sodium of 135, potassium 5.1, chloride of 98, bicarb 25, BUN of 81 from 94 yesterday, creatinine 2.8 from 3.3 yesterday. Glucose of 127, total bilirubin of 0.7, AST of 175, ALT of 483, alkaline phosphatase of 136, total protein of 5.7, albumin of 3.3. UA shows proteinuria, epithelial cells and trace red blood cells. Urine culture is no growth to date. Throat culture is pending. Imaging: CT unrevealing for acute process. Abdominal ultrasound is pending. ASSESSMENT AND PLAN: Mr. Coleman Lazar is a 73-year-old gentleman who presents with a history of chronic obstructive pulmonary disease, alcoholic liver disease, chronic thrombocytopenia, chronic kidney disease stage 3, diastolic heart failure with preserved ejection fraction, who presents with generalized weakness and multiple symptoms found to have acute on chronic kidney disease and acute liver injury. The pattern of abnormal LFTs is not typical of alcoholic hepatitis given significant ALT elevation compared to his AST. His bilirubin is normal and his alkaline phosphatase is minimally elevated. We have no INR, which we will check. His ultrasound is pending to look for acute cholecystitis versus gallstones. His acute hepatitis panel from November was normal. We can certainly check other chronic liver disease workup, however, it would be unusual in the setting of acute alcohol intoxication and relatively normal AST and ALT back in November of this year for him to develop de rosemarie AIH. The other possibilities include drug-induced liver injury, which the patient denies any ingestions of other medications including Tylenol. Will check a Tylenol level. I have counseled the patient extensively on alcohol cessation. He does have some asterixis on exam. Low threshold to start him on lactulose if he becomes confused. We will continue him on CIWA protocol, give him thiamine and folate and IV fluids for his acute kidney injury. Other issues include anemia which appears to be chronic. He has a negative fecal occult and denies any rectal bleeding. The patient is up-to-date with high-risk screening colonoscopies. He does have a history of diverticulosis and hemorrhoids. COPD: Continue inhalers and respiratory protocol as per primary. Thrombocytopenia: Stable. # ETOH cirrhosis # ETOH intoxication # Abnormal LFTs # Acute on chronic CKD # Thrombocytopenia # Anemia # COPD Thank you for this consult. We will follow with you. Please call with any questions or concerns. MTDBeulah
[2019-02-21 15:17] LABS: ALBUMIN 3.5 g/dL (3.5-5.0); CALCIUM 8.6 mg/dL (8.8-10.2); CREATININE 1.9 mg/dL (0.7-1.2); PHOSPHORUS 3.3 mg/dL (2.7-4.5); POTASSIUM 4.9 mmol/L (3.5-5.1)
[2019-02-21] MEDS ORDERED: DUONEB (A & A) INH PRN (16:33)
[2019-02-21] MEDS ORDERED: ZOFRAN IV PRN (16:33)
[2019-02-21] MEDS: LIBRIUM PO SCH ×2 (16:55→22:21)
--- NOTE | 2019-02-21 19:27 | NEPHROLOGY CONSULTATION ---
DATE: 02/21/2019 REASON FOR CONSULTATION: Acute kidney injury. HISTORY OF PRESENT ILLNESS: Mr. Lazar is a 73-year-old white male who follows with us in our office. Baseline creatinine 1.8 to 2.2. He was last seen in December of this year for edema. He was admitted to the hospital on yesterday with weakness and lower abdominal pain. He, today, just complains of generalized weakness that is worse in the legs. No other new symptoms. No chest pain, palpitation, shortness of breath. His initial evaluation in the emergency room found blood pressure 118/62 with heart rate of 69. His initial labs found creatinine 3.7 with BUN 95. He was treated with IV fluids that included bicarbonate. In that context, his creatinine has improved progressively to 1.9 today. PAST MEDICAL HISTORY: Congestive heart failure, chronic kidney disease, COPD, alcohol abuse, tobacco abuse, atrial fibrillation, chronic pain. HOME MEDICATIONS: Include tamsulosin, oxycodone, simvastatin, gabapentin, carvedilol, albuterol, lisinopril, diltiazem, multivitamin, thiamine. ALLERGIES: None. SOCIAL HISTORY: He lives alone. Continues to smoke. Continues to drink a pint a day at least. FAMILY HISTORY: Otherwise noncontributory. REVIEW OF SYSTEMS: Otherwise noncontributory. PHYSICAL EXAMINATION: Vital Signs: Blood pressure 175/86, heart rate 80, respirations 20, afebrile. General: No acute distress. Chronically ill-appearing. Skin: Warm and dry. Pale. No ecchymoses. HEENT: Conjunctivae are pink. Pupils are equal. Oropharynx is clear. Neck: Supple. Neck veins are not appreciated. Heart: Regular. No gallops or murmurs. Lungs: Have equal breath sounds. No crackles. Abdomen: Obese, nontender. Bowel sounds present. Extremities: Trace edema. No clubbing or cyanosis. IMPRESSION: Acute kidney injury overlying chronic kidney disease. Likely intravascular volume depletion in the context of DONG inhibitor therapy. He has responded well to IV fluids and is back to his historical baseline. His lisinopril has been appropriately withheld. I have reviewed his medications and no other changes are required. I did stop his IV fluids. Repeat labs in the morning. cc: Rayray Murillo MD
--- NOTE | 2019-02-21 19:31 | PROGRESS NOTE ---
DATE: 02/21/2019 SUBJECTIVE: The patient notes that he is still having some weakness, although does feel a little bit stronger. He did have some difficulty with urinary retention last night, even after voiding. He had a large urine residual. PHYSICAL EXAMINATION: Vital Signs: Temperature 98.4 degrees, pulse 74, respiratory rate 18, BP 129/66. General: Patient is an elderly male who is in no respiratory distress. HEENT: Normocephalic. Neck: Supple. Cardiovascular: Regular rate. Chest: Clear. Abdomen: Soft. Extremities: Moves all extremities. ASSESSMENT: 1. Acute kidney disease on chronic kidney disease. He does have some postobstructive issues as well. His creatinine has actually improved slightly from 3.3 down to 2.8. 2. Hepatitis, likely alcohol induced. His AST and ALT are both elevated, but actually improved from yesterday's labs. 3. Hyperkalemia, improving. 4. Chronic obstructive pulmonary disease. 5. Chronic alcohol abuse. PLAN: 1. We will continue patient in the hospital. 2. Continue to follow his kidney function as well as his liver dysfunction. 3. Further orders as needed. cc: Hussein Haley MD
[2019-02-21] MEDS ORDERED: AYR NASAL SPRAY NAS PRN (21:19)
[2019-02-22] MEDS: PRILOSEC PO SCH ×2 (05:32→06:20)
[2019-02-22] MEDS: LIBRIUM PO SCH (05:33)
[2019-02-22 06:05] LABS: INR 0.95; PROTIME 12.8 Seconds (11.0-16.0)
[2019-02-22 06:06] LABS: HEMATOCRIT 33.2 % (42.0-52.0); HEMOGLOBIN 10.6 g/dL (14.0-18.0); MCH 30.6 PG (27-31); MCHC 31.9 g/dL (33-37); MPV 10.7 FL (7.4-10.4); RBC 3.46 XMIL (4.7-6.1); RDW 13.7 % (11.5-14.5); WBC 5.35 X1000 (4.8-10.8)
[2019-02-22 06:20] LABS: HEMOGLOBIN A1C 5.7 % (4.8-6.0)
[2019-02-22 06:31] LABS: ALB/GLOB RATIO 1.2; ALBUMIN 3.3 g/dL (3.5-5.0); CALCIUM 8.2 mg/dL (8.8-10.2); CREATININE 1.9 mg/dL (0.7-1.2); MAGNESIUM 1.9 mg/dL (1.5-2.7); PHOSPHORUS 3.2 mg/dL (2.7-4.5); POTASSIUM 4.6 mmol/L (3.5-5.1); TOTAL BILIRUBIN 0.66 mg/dL (0.20-1.00); TOTAL PROTEIN 6.1 g/dL (6.3-8.3)
[2019-02-22 07:46] VITALS: BP 156/78
[2019-02-22] MEDS: DUONEB (A & A) INH SCH ×2 (07:51→11:29)
[2019-02-22] MEDS ORDERED: NEXIUM IV SCH (08:45)
[2019-02-22] MEDS ORDERED: SODIUM CHLORIDE 0.9% INJ SCH (08:45)
[2019-02-22] MEDS ORDERED: OXYCONTIN PO SCH (09:00)
[2019-02-22] MEDS ORDERED: VITAMIN B-1 PO SCH (09:00)
[2019-02-22] MEDS ORDERED: THERA M PLUS PO SCH (09:00)
[2019-02-22] MEDS ORDERED: CARDIZEM CD PO SCH (09:00)
[2019-02-22] MEDS ORDERED: FOLIC ACID PO SCH (09:00)
[2019-02-22] MEDS: COREG PO SCH (09:11)
[2019-02-22] MEDS: FLOMAX PO SCH (09:11)
[2019-02-22] MEDS ORDERED: PROTONIX IV SCH (09:30)
--- NOTE | 2019-02-22 16:12 | GASTROENTEROLOGY PROGRESS NOTE ---
DATE: 02/22/2019 SUBJECTIVE: Patient resting in chair. He is feeling better. He complained of diarrhea until yesterday and is resolving now. He denies any nausea, vomiting, vomiting blood. He is eating better. He ate 75% meal. He denies any fevers, rigors, or chills. Vital signs: Temperature 97.7, pulse rate of 66, respiratory rate of 16, blood pressure 156/78, saturating 94% on room air. Body weight of 240 pounds BMI 33.5 kg. General: Obese sitting in chair, in no acute distress. HEENT: Pale conjunctivae. No icterus. Pupils equal, reactive to light. Neck: Supple. Abdomen: Obese. Mild discomfort in the abdomen region. No rebound or guarding. Extremities: No cyanosis, clubbing. Neurologic: He is alert, awake, oriented. LABS: Hemoglobin and hematocrit is 10.6 and 33.2, white count of 5.35 platelet count of 59,000. Sodium of 140, potassium 4.6, chloride 110, bicarb 27, anion gap 11, BUN of 39 creatinine 1.9, glucose of 125, calcium is 8.2, phosphorus 3.2, magnesium 1.9. Total bilirubin is 0.66. AST 103, ALT 361, alkaline phosphatase of 99, total protein is 6.1, albumin of 3.3. INR 0.95 PT of 12.8. Urinalysis 2+ protein, trace white cells. Some epithelial cells more than 10. Tylenol level less than 1.2, blood alcohol level 167. Group A strep rapid was negative. Throat culture: No group A strep. Urine culture no growth. Abdominal pelvic CT scan done on 02/20 showed extensive coronary calcification. Cyst in the pole of the left kidney and platelike opacity in the inferior lingula presumably fibrotic. Some vascular calcification in the right kidney. There is dilation of the abdominal aorta distally just above the bifurcation measuring up 2.3 cm. There are bilateral hip prosthesis. There is some diverticulosis in distal descending and sigmoid colon. There has been appendectomy in there is spondylitic changes in the lumbar spine which were also present previously. IMPRESSION AND PLAN: 1. Alcohol intoxication and known history of alcoholic liver disease. The patient counseled to quit alcohol completely. He will continue on thiamine, folate, and being watched for withdrawal. He is also on Librium protocol per the primary care team. 2. Chronic obstructive pulmonary disease. The patient counseled to quit smoking completely. He smokes 1 pack a day. 3. Chronic kidney disease stage 3. Aware being managed primary team. 4. Chronic thrombocytopenia likely liver disease. This need to watch closely as an outpatient. The patient sees Dr. Brito as an outpatient. So he will need to follow up with Dr. Brito as outpatient. May need Hematology evaluation. 5. Diastolic congestive heart failure with preserved ejection fraction, aware. 6. Anemia. Continue to watch for now. He will benefit from multivitamin once daily. The patient will start proton pump inhibitor in order to heal any kind of erosive gastritis from alcohol abuse and smoking. We will follow up on the acute hepatitis panel, antinuclear antibodies level. His Tylenol level is normal. The patient does have diverticulosis in the colon. Patient needs to take a high-fiber diet. 7. Gastrointestinal prophylaxis proton pump inhibitor on Protonix twice daily. Diarrhea is resolved. He is on Bentyl as needed. We will discontinue that it can make him constipated. 8. The above plans discussed with the patient. All questions were answered. Please call us with any further questions. cc: MD Aleksandar Morrissey MD MTDD
--- NOTE | 2019-02-22 16:50 | NEPHROLOGY PROGRESS NOTE ---
DATE: 02/22/2019 TIME SEEN: 0705. SUBJECTIVE: Mr. Lazar is resting quietly in bed. He has no complaints today. He states that he is feeling just a little bit better. Abdomen is less tender. OBJECTIVE: Vital signs: Patient's most recent vital signs, last temperature 97.9 degrees, blood pressure 136/62, heart rate 64, respirations 18. He is currently on room air. Last recorded saturation is 94%. He has had 3,538 in, 450 out to void. Labs: Sodium 148, potassium 4.6, chloride 110, CO2 27, BUN 59, creatinine 1.9, glucose 125. His anion gap is 11, calcium 8.2, phosphorus 8.2, magnesium 1.9, albumin of 3.3. White count 5.35, hemoglobin 10.6, hematocrit 33.2, with a platelet count of 59,000. PHYSICAL EXAMINATION: General: This is a 73-year-old, elderly male. He is currently resting quietly in bed. He has no complaints at this time. He appears chronically ill. Skin: Warm and dry. HEENT: Normocephalic, atraumatic. Conjunctivae pale. He has LEXI. Mucous membranes are dry. Neck: Supple. Trachea midline. No evidence of JVD. Cardiovascular: Regular rate and rhythm. No murmur or gallop. Lungs: Clear to auscultation bilaterally. Equal excursion. On room air. Abdomen: Soft, nontender. Positive bowel sounds. Genitourinary: Not inspected. Patient has voided, adequate amount recorded. Extremities: Have trace edema in the hip region. Neurological: He is alert to person and to place. ASSESSMENT AND PLAN: 1. Acute kidney injury overlying chronic kidney disease stage 3B. The patient appears to be intravascularly depleted in the context of DONG inhibitor therapy. He continues to have IV fluids infusing. BUN and creatinine have remained stable over the last 24 hours. Adequate urine output documented. No indications for intervention. We will continue to monitor labs. He is at his baselien. rg 2. Electrolytes and acid-base balance. These are acceptable. 3. Anemia. This is acceptable. 4. Questionable hepatitis with alcohol-induced. AST and ALT remain elevated. Followed by the primary care. I would like to thank you for allowing us to follow with this patient. Dictated by ZBIGNIEW Arboleda for Rayray Murillo MD Face to face encounter, data reviewed, discussed with Tahmina Cheng on 02/22/19. I agree with the above assessment and plan of care. cc: ZBIGNIEW Arboleda MD [facility]
--- NOTE | 2019-02-23 04:45 | DISCHARGE SUMMARY ---
ADMISSION DATE: 02/20/2019 DISCHARGE DATE: 02/22/2019 FINAL DISCHARGE DIAGNOSES: 1. Acute kidney injury on chronic kidney disease. 2. Urinary retention secondary to benign prostatic hypertrophy. 3. Alcohol abuse. 4. Chronic obstructive pulmonary disease. 5. Chronic thrombocytopenia. 6. Diastolic dysfunction. 7. Tobacco dependence. 8. Peripheral neuropathy. CONSULTATIONS: 1. GI consultation with Dr. Claire. 2. Nephrology consultation with Dr. Murillo. IMAGIN. CT of the abdomen and pelvis which revealed no acute disease. 2. Abdominal ultrasound which revealed no acute disease. HOSPITAL COURSE: Mr. Lazar is a 73-year-old male with a history of multiple medical problems who initially presented to the ER with a chief complaint of weakness and lower abdominal pain. On admission, the patient was noted to have a BUN of 95 with a creatinine of 3.7 as well as a potassium of 5.5. Of note, his AST and ALT were noted to be elevated at 276 and 664 respectively. The patient was admitted to the hospitalist service. The patient was started on fluids. He was noted to be retaining urine and so Flomax was started. He refused a Molina catheter, but was able to void once the Flomax was initiated. Nephrology was consulted as well as GI. The patient's creatinine improved quickly with the administration of fluids. Also, the patient's LFTs improved as well. An abdominal ultrasound was done that revealed no acute disease. It was thought that the patient's LFT elevation was secondary to his heavy alcohol usage. The patient was counseled about the importance of smoking cessation as well as alcohol cessation. The patient is currently medically stable for discharge. Today, the patient has a BUN of 59 with a creatinine of 1.9. The AST is down to 103 with an ALT of 361. The patient is awake and oriented x4. DISCHARGE MEDICATIONS: 1. Flomax 0.4 mg oral at bedtime. 2. Oxycodone 30 mg p.o. daily. 3. Zocor 40 mg p.o. at bedtime. 4. Gabapentin 600 mg oral daily. 5. Coreg 25 mg oral twice a day. 6. Albuterol nebulizer 3 times a day. 7. Lisinopril 40 mg p.o. daily. 8. Cardizem-LA 180 mg oral daily. 9. Multivitamin 1 tab oral daily. 10. Thiamin 100 mg oral daily. DISCHARGE DIET: Low-sodium diet. ACTIVITY: As tolerated. FOLLOWUP INSTRUCTIONS: The patient will need to follow up with Dr. Claire on 03/08/2019 at 8:45 in the morning. The patient will need to follow up with Dr. Murillo on 03/13/2019 at 11:30 in the morning. cc: Lubna Deleon MD
[2019-02-23 12:14] LABS: HEPATITIS PROFILE ACUTE SEE COMMENTS
== END 2019-02-22 11:59 | disposition home or self-care (01) | DRG 683 ==
LOC: P.ED 11:24 → SUATTDRO 15:52 → P.MEDSURG 15:52 → 4N 02-21 09:36
PROVIDERS: ATTEND Internal Medicine

== ENCOUNTER 2019-06-29 17:02 | Inpatient (IN) ==
--- NOTE | 2019-06-29 18:15 | EKG Report ---
Test Performed on : 06/29/2019 5:41:13 PM Test Reason : epigastric pain Blood Pressure : / mmHG Vent. Rate : 077 BPM Atrial Rate : 077 BPM P-R Int : 174 ms QRS Dur : 136 ms QT Int : 408 ms P-R-T Axes : 021 -13 -19 degrees QTc Int : 461 ms Normal sinus rhythm. Right bundle branch block T wave abnormality, consider lateral ischemia Abnormal ECG When compared with ECG of 20-FEB-2019 11:39, QRS duration has decreased T wave inversion now evident in Anterolateral leads Unconfirmed Result
--- NOTE | 2019-06-29 18:28 | Diag Imaging Result Doc PS360 ---
FLAT/UPRIGHT ABD/1 VIEW CHEST - 06/29/2019 INDICATION: epigastric pain TECHNIQUE: COMPARISON: 02/20/2019 FINDINGS: The chest is clear. There is a nonobstructive bowel gas pattern. No free air or abnormal calcifications. There are bilateral hip replacements. IMPRESSION: No acute disease. Electronically signed by Christos Castro 06/29/2019 6:25 PM
[2019-06-29 19:52] LABS: BASO# 0.03 X1000 (0.0-0.2); BASO% 0.5 % (0.0-0.8); EOS# 0.19 X1000 (0.0-0.7); EOS% 3.4 % (0.0-10.0); HEMATOCRIT 43.4 % (42.0-52.0); HEMOGLOBIN 13.6 g/dL (14.0-18.0); LYMPH# 1.52 X1000 (1.2-3.4); LYMPH% 27.6 % (20.5-51.1); MCHC 31.3 g/dL (33-37); MCV 95.6 FL (81-99); MONO% 7.3 % (1.7-9.3); MPV 10.6 FL (7.4-10.4); NEUT# 3.37 X1000 (1.4-6.5); NEUT% 61.2 % (42.2-75.2); PLT 134 X1000 (130-400); RBC 4.54 XMIL (4.7-6.1); RDW 13.6 % (11.5-14.5); WBC 5.51 X1000 (4.8-10.8)
[2019-06-29 20:05] LABS: INR 0.96; PROTIME 12.9 Seconds (11.0-16.0)
[2019-06-29 20:07] LABS: ALB/GLOB RATIO 1.3; ALBUMIN 3.7 g/dL (3.5-5.0); CALCIUM 9.1 mg/dL (8.8-10.2); CREATININE 2.4 mg/dL (0.7-1.2); POTASSIUM 4.7 mmol/L (3.5-5.1); TOTAL BILIRUBIN 0.55 mg/dL (0.20-1.00); TOTAL PROTEIN 6.6 g/dL (6.3-8.3)
[2019-06-29 21:10] LABS: URINE SOURCE CLEAN CATCH
[2019-06-29 21:12] LABS: BILIRUBIN URINE NEGATIVE (NEGATIVE); BLOOD URINE NEGATIVE (NEGATIVE); COLOR YELLOW; GLUCOSE URINE NEGATIVE (NEGATIVE); KETONE URINE NEGATIVE (NEGATIVE); LEUKOCYTES URINE NEGATIVE (NEGATIVE); NITRITE URINE NEGATIVE (NEGATIVE); PROTEIN URINE 200 mg/dL (NEGATIVE); SP GRAVITY URINE 1.011; TURBIDITY URINE CLEAR (CLEAR); UROBILINOGEN URINE NORMAL (NORMAL)
[2019-06-29] MEDS ORDERED: ASPIRIN PO ONE (21:13)
[2019-06-29] MEDS ORDERED: SODIUM CHLORIDE 0.9% INJ ONE (21:13)
[2019-06-29] MEDS ORDERED: LASIX IV ONE (21:13)
[2019-06-29] MEDS ORDERED: G.I. COCKTAIL PO ONE (21:13)
[2019-06-29] MEDS ORDERED: PROTONIX IV ONE (21:13)
[2019-06-29 21:14] LABS: UR EPITHELIAL CELLS <10 /HPF (<10); URINE BACTERIA NEGATIVE /HPF; URINE RBC <10 /HPF (<10); URINE WBC <10 /HPF (<10)
[2019-06-29] MEDS ORDERED: NS 1,000 ML ONE (23:48)
[2019-06-30] MEDS ORDERED: NS 1,000 ML IV ONE (00:54)
--- NOTE | 2019-06-30 02:09 | PROVIDER DOCUMENTATION ---
This chart was entered by Jerrica Root Scribe, acting as scribe for Benjamin Harding MD. HPI-General Adult - General Chief Complaint: Epigastric Pain Stated Complaint: CP Time Seen by Provider: 06/29/19 20:22 Source: patient Allergies/Adverse Reactions: Patient Allergies Allergy/AdvReac Type Severity Reaction Status Date / Time No Known Allergies Allergy Verified 11/21/18 14:43 Home Medications: Home Medication List Medication Instructions Recorded Confirmed Last Taken Type Tamsulosin [Flomax] 0.4 mg PO HS 11/30/13 02/20/19 11/19/18 History Oxycodone HCl 30 mg PO DAILY 06/17/16 02/20/19 11/21/18 History SIMVAstatin [Zocor] 40 mg PO QHS 06/22/16 02/20/19 11/20/18 History Gabapentin 600 mg PO DAILY 05/19/17 02/20/19 11/21/18 History Carvedilol 25 mg PO BID 08/04/18 02/20/19 11/20/18 History Albuterol [Albuterol Neb] 2.5 mg INH TID 09/05/18 02/20/19 11/20/18 History Lisinopril 40 mg PO DAILY 11/27/18 02/20/19 Unknown History Diltiazem L.a. [Cardizem LA] 180 mg PO DAILY #120 tab 12/01/18 02/20/19 Unknown Rx Multivit,Fe,Ca,FA & Min [Thera M 1 ea PO DAILY #120 tab 12/01/18 02/20/19 Unknown Rx Plus] Thiamine [Vitamin B-1] 100 mg PO DAILY #120 tab 12/01/18 02/20/19 Unknown Rx - History of Present Illness -Gen Adult Nature of Presenting Problems: pt is a 74 yowm c/o intermittent gerd, epigastric cp 2.5 days, productive cough and sinus drainage x 2 weeks. pt sts he became dizzy today when moving or standing nad has had trouble swallowing food recently. pt sts usually drinking coke and belching or passing gas helps this pain but it hasn't resolved. cp does not travel. no sob, diaphoresis, fever or chills. no hx of NM or htn. pt took rolaids and baking soda w/minimal relief. pain is 3/10. pt followed by Dr. Watson in [place]. Location of Pain/Injury: reports: chest Pain Radiation: reports: no radiation Severity: reports: mild Onset/Duration: reports: 2 days ago (gerd and epigastric cp), other (2 weeks prod cough and sinus drainage.) Timing: reports: still present, intermittent Context/Activities at Onset: reports: none Associated Symptoms: reports: chest pain, cough (prod), dizziness, heartburn, sinus congestion/drainage. denies: diaphoresis, fever/chills Review of Systems - Adult - REVIEW OF SYSTEMS - ADULT Constitutional: reports: no symptoms reported. denies: chills, fever, fatique Eyes: reports: no symptoms reported Ears, Nose, Mouth & Throat: reports: see HPI, sinus problem, other (trouble swallowing). denies: ear pain, throat pain, throat swelling Cardiovascular: reports: see HPI, chest pain (epigastric, gerd). denies: heart murmur, irregular heart rate, palpitations Respiratory: reports: see HPI, cough, excessive sputum production. denies: dyspnea on exertion, shortness of breath, wheezing Gastrointestinal: reports: see HPI, frequent heartburn. denies: diarrhea, nausea, vomiting Genitourinary: reports: no symptoms reported Musculoskeletal: reports: no symptoms reported Integumentary: reports: no symptoms reported Neurological: reports: see HPI, dizziness/vertigo. denies: loss of balance, numbness, paresthesia Psychiatric: reports: no symptoms reported Endocrine: reports: no symptoms reported. denies: change in skin pigment, excessive sweating Hematologic/Lymphatic: reports: no symptoms reported Allergic/Immunologic: reports: no symptoms reported All Other Systems: Reviewed and Negative Past History - Adult - PAST MEDICAL HISTORY-ADULT Review of Records: reports: Nursing Assessment Review, Medications Reviewed, Social history reviewed & non-contributory. Major Childhood Illnesses: reports: denies history Cardiovascular: reports: HTN, hyperlipidemia Respiratory: reports: denies history Gastrointestinal: reports: denies history Obstetrical/Gynecological: reports: denies history Genitourinary: reports: denies history Musculoskeletal: reports: denies history Neurological: reports: denies history Endocrine/Immune: reports: denies history Other Conditions: reports: other cancer (skin) - PRIOR SURGERIES/PROCEDURES Surgical/Procedure History: reports: appendectomy, tonsillectomy, orthopedic (ex tremity), joint replacement - IMMUNIZATION STATUS Childhood Immunizations: See Nurse Assessment Flu Vaccine: See Nurse Assessment - FAMILY HISTORY Family History: reviewed, not pertinent - SOCIAL HISTORY Smoking: cigarettes, greater than 1 pack/day Provider spent 3-5 mins advising pt. on dangers of tobacco.: Discussed manners to quit use, and f/u contacts for add'l counseling. Substance Use: alcohol Alcohol Use Frequency: every day Physical Exam-General - PHYSICAL EXAM-ADULT Initial Vital Signs Reviewed: Yes - CONSTITUTIONAL General Appearance: appears well, alert, no apparent distress. negative: cachetic, lethargic, slow to respond - EYES Eyes: PERRL/EOMI, pink conjunctivae - HEAD, EARS, NOSE, MOUTH & THROAT HENMT: normocephalic/atraumatic, moist mucous membranes, normal ENT inspection - NECK Neck: non-tender, full range of motion, supple, normal inspection - RESPIRATORY Respiratory: chest non-tender, lungs clear, normal breath sounds, no pleuratic chest pain, no respiratory distress, no accessory muscle use. negative: respiratory distress, wheezing, pain on inspiration - CARDIOVASCULAR Cardiovascular: normal peripheral pulses, regular rate, rhythm, no edema (+1 bilat), no gallop, no JVD, no murmur. negative: bradycardia, tachycardia, friction rub - GASTROINTESTINAL (ABDOMEN) Abdominal Exam: normal bowel sounds, non tender, soft, no organomegaly, no pulsatile mass. negative: rigid, rebound, tenderness - MUSCULOSKELETAL Back Exam: normal inspection Extremity: normal range of motion, non-tender, normal inspection, no calf tend erness, normal capillary refill, pedal edema. negative: no pedal edema, deformity, slow capillary refill, tenderness Peripheral Pulses: dorsalis-pedis (R): 2+, dorsalis-pedis (L): 2+ - SKIN Integumentary: normal color, normal turgor, warm/dry - NEUROLOGIC Neurologic: grossly normal, no motor/sensory deficits - PSYCHIATRIC Psych/Mental Status: normal mood/affect, normal thought content, normal thought process, oriented x 3 Progress - PLAN OF CARE/RESULTS Progress/Plan/Lab Results: Vital Signs - 8 hr 06/29/19 17:37 06/29/19 19:29 Temperature 98.7 F 98.6 F Pulse Rate 80 80 Respiratory Rate 20 20 Blood Pressure 96/60 227/69 O2 Sat by Pulse Oximetry 97 93 L Laboratory Results - last 24 hr 06/29/19 06/29/19 06/29/19 19:25 19:25 19:25 WBC RBC Hgb Hct MCV MCH MCHC RDW Std Deviation Plt Count MPV Immature Gran % (Auto) Neut % (Auto) Lymph % (Auto) [place] % (Auto) Eos % (Auto) Baso % (Auto) Immature Gran # (Auto) Neut # (Auto) Lymph # (Auto) [place] # (Auto) Eos # (Auto) Baso # (Auto) PT 12.9 INR 0.96 PTT (Actin FS) 28.0 Sodium 138 Potassium 4.7 Chloride 99 Carbon Dioxide 23 L Anion Gap 16 BUN 43 H Creatinine 2.4 H Estimated GFR/1.73 m2 27 BUN/Creatinine Ratio 18 Glucose 100 Calculated Osmolality 287 Calcium 9.1 Total Bilirubin 0.55 AST 16 ALT 9 L Alkaline Phosphatase 89 Creatine Kinase 79 Troponin T Vbd-D-Iiqlyvjwnsj Pept 3267 H Total Protein 6.6 Albumin 3.7 Globulin 2.9 Albumin/Globulin Ratio 1.3 Lipase 06/29/19 06/29/19 06/29/19 19:25 19:25 19:26 WBC 5.51 RBC 4.54 L Hgb 13.6 L Hct 43.4 MCV 95.6 MCH 30.0 MCHC 31.3 L RDW Std Deviation 13.6 Plt Count 134 MPV 10.6 H Immature Gran % (Auto) 0.0 Neut % (Auto) 61.2 Lymph % (Auto) 27.6 [place] % (Auto) 7.3 Eos % (Auto) 3.4 Baso % (Auto) 0.5 Immature Gran # (Auto) 0.00 Neut # (Auto) 3.37 Lymph # (Auto) 1.52 [place] # (Auto) 0.40 Eos # (Auto) 0.19 Baso # (Auto) 0.03 PT INR PTT (Actin FS) Sodium Potassium Chloride Carbon Dioxide Anion Gap BUN Creatinine Estimated GFR/1.73 m2 BUN/Creatinine Ratio Glucose Calculated Osmolality Calcium Total Bilirubin AST ALT Alkaline Phosphatase Creatine Kinase Troponin T 0.063 Wam-N-Psonaqnozgz Pept Total Protein Albumin Globulin Albumin/Globulin Ratio Lipase 31 Orders Category Date Time Status Cardiac Monitoring DIRECTED Care 06/29/19 17:54 Active Saline Loc NOW Care 06/29/19 17:54 Active FLAT/UPRIGHT ABD/1 VIEW CHEST [RAD] Stat Exams 06/29/19 17:55 Completed CBC WITH ELECTRONIC DIFF [HEME] Stat Lab 06/29/19 19:26 Completed CK PROFILE [SP CHEM] Stat Lab 06/29/19 19:25 Completed COMPREHENSIVE METABOLIC PANEL [CHEM] Stat Lab 06/29/19 19:25 Completed LIPASE [CHEM] Stat Lab 06/29/19 19:25 Completed PRO B-NATRIURETIC PEPTIDE Stat Lab 06/29/19 19:25 Completed PROTIME WITH INR [COAG] Stat Lab 06/29/19 19:25 Completed PTT [COAG] Stat Lab 06/29/19 19:25 Completed TROPONIN T Stat Lab 06/29/19 19:25 Completed CP/SOB/Palp >45 yrs of Age Stat Oth 06/29/19 17:54 Ordered EKG [EKG] Stat Ther 06/29/19 17:54 Draft Result Diagrams: 06/29/19 19:26 06/29/19 19:25 - EKG 1 Time of EKG reading by physician:: 17:07 EKG Read and Signed by:: Korey Canela EKG Interpretation (*Must complete 3 of following elements*): Abnormal Rate: 77 Rhythm: NSR [place]: normal QRS: RBB [place] Interval: normal ST Wave: non-specific ST changes (NSSTTWA) Prior EKG Comparison: changes noted (minimal from prior 02-20-19) - XRAY 1 XRAY Study: Abdomen Impression: Normal, See EMR Report (FLAT/UPRIGHT ABD/1 VIEW CHEST - 06/29/2019 INDICATION: epigastric pain TECHNIQUE: COMPARISON: 02/20/2019 FINDINGS: The chest is clear. There is a nonobstructive bowel gas pattern. No free air or abnormal calcifications. There are bilateral hip replacements. IMPRESSION: No acute disease. Electronically signed by Christos Castro 06/29/2019 6:25 PM) - CONSULTS/PCP/HOSPITALIST Notification #1 *Consult/PCP/Hospitalist*: Dr Quan Time Discussed: 02:03 Consult Disposition: Admit Departure - Departure Date of Disposition Decision: 06/30/19 Time of Disposition Decision: 02:09 DIAGNOSIS: Chest pain, CHF (congestive heart failure) Disposition: ADMITTED INPATIENT 09 Certified Medical Emergency: Emergent Condition: Stable Referrals and Follow-Ups: Walter,Junaid T., MD [Primary Care Provider] - - Critical Care Note This patient required my direct & personal management of CC.: No Attestation - Physician/ SKYLA Attestation Patient care was provided by Advanced Practice Provider:: No The physician spent face to face time with patient:: Yes Advanced Practice Provider documentation review:: Supervising physician onsite and consulted in the evaluation and care of this patient. The physician did have a face to face encounter with the patient. This chart was documented by the indicated scribe, (Jerrica Root Scribe) and accurately reflects the services I performed and decisions made by me, Benjamin Harding MD, as attested by the provider's signature.
[2019-06-30] MEDS ORDERED: TYLENOL PO PRN (03:19)
[2019-06-30] MEDS ORDERED: ZOFRAN IV PRN (03:19)
--- NOTE | 2019-06-30 03:22 | HISTORY AND PHYSICAL ---
PRIMARY CARE PHYSICIAN: Dr. Junaid Watson. REASON FOR ADMISSION: Chest pain for 3 days duration. HISTORY OF PRESENT ILLNESS: Mr. Coleman Lazar is a 74-year-old male with past medical of hypertension, chronic kidney disease, BPH, COPD, atrial fibrillation, which qualified for anticoagulation but because of patient's fall risk and GI bleed in the recent past, he is being treated conservatively. He comes in today because of a 3-day history of substernal chest pain, nonradiating. It is aggravated by meals and denies any associated shortness of breath, palpitations, nausea, vomiting. He came in to the ER today by urgent care center because of worsening chest pain with lightheadedness. He believes, in his own words, that he was sent here by the urgent care doctor because the doctor did not want to assume any liability. Since he has been in the ER, he says his chest pain has resolved completely. He was given a GI cocktail, Protonix and aspirin so far. He denies any leg swelling, PND, orthopnea. He has a chronic cough occasionally productive of whitish sputum but no fever or chills. Denies extremity redness or pain. He denies any GI or complaints. No focal neurological complaints. No polyuria or polydipsia. REVIEW OF SYSTEMS: Twelve system review was done. Positive findings per HPI. He denies any change in his medications recently. He denies any bowel movements. ALLERGIES: None. HOME MEDICATIONS: Have been reconciled. FAMILY HISTORY: Notable for colon cancer and diabetes in first-degree relatives. SURGICAL HISTORY: Appendectomy, tonsillectomy, hip surgery, jaw surgery. SOCIAL HISTORY: Smokes about half a pack a day. Drinks about 3 ounces of liquor daily. He is . He denies any illicit drugs. LABORATORY WORK: EKG showed normal sinus rhythm with right bundle branch block, nonspecific ST- wave changes in the lateral leads, rate is 77. Chest film and flat and upright x-ray shows no acute processes. White count 5000, hemoglobin and hematocrit 13 and 42, platelets 134,000. BUN is 40, creatinine 2.4 up from 1.8. CK is normal. Troponin 0.063, successive troponin was 0.055. ProBNP 3200, which is up from 302 a few months ago. PTT is normal. Urinalysis shows 200 protein. PHYSICAL EXAMINATION: VITAL SIGNS: Blood pressure is 222/69, heart rate 80, respiratory rate is 98.6 degrees. He is 93% on room air. GENERAL: He is an obese, elderly man not in acute distress. He is alert and oriented to person and time. Normal mood and affect. HEENT: Head is normocephalic, atraumatic. Eyes: LEXI, EOMI. He is anicteric, not pale. ENT: Oropharyngeal is grossly normal. NECK: Supple. No JVD or carotid bruit. No thyromegaly. CHEST: Decreased entry in both lung [place]. Expiratory wheezes. CARDIOVASCULAR: First and second heart sounds heard. No gallops, murmurs, rubs. Rhythm is regular. ABDOMEN: Protuberant, soft, with mild left lower quadrant tenderness, but no peritoneal signs. Bowel sounds are normal. RECTAL: Deferred at this time. EXTREMITIES: Patient has no edema, clubbing, or cyanosis. There is good distal pulse volumes, regular, symmetrical. NEUROLOGICAL: Grossly normal. No asterixis. SKIN: Intact. No breakdown, lesion, erythema. MUSCULOSKELETAL: Grossly normal. ASSESSMENT: 1. Chest pain syndrome. 2. Atrial fibrillation. 3. Mildly acute kidney injury on chronic kidney disease. 4. Hypertensive heart and kidney disease. 5. Chronic diastolic heart failure, stable. 6. Chronic obstructive pulmonary disease. 7. Paroxysmal atrial fibrillation. 8. Past medical history of gastrointestinal bleed. 9. Benign prostatic hypertrophy. 10. Hyperlipidemia. PLAN: Patient will be admitted. No need for cardiac rule out, but brought in for possible inpatient versus outpatient work up to risk stratify this patient. In the patient's old charts, I have not seen any evidence of any workup. His last echo showed the EF of 60%, but no other workup regarding his coronary status has been done. His mildly elevated troponin is likely related to underlying kidney disease. The patient also has had a history of GI bleed, which is one of the reasons why he is not on any anticoagulation, even though his CHADS2 score in the past has met criteria for anticoagulation. His symptoms seem to be more somewhat more consistent with a GI etiology versus cardiac. We will put him on high-dose PPIs, but we will still start on low-dose aspirin in view that he had at least a moderate risk of ischemic disease. I have taken the liberty of ordering an upper GI series and I still think he will benefit from EGD down the road because of his symptoms and prior history of GI bleed. Check lipids and A1c, optimize modifiable risk factors, also including his blood pressure. I have discontinued DONG inhibitor in this patient as there is no strong indication for continuing this medication, especially due to the fact that his renal function is declining. cc: MD Junaid Quinn MD
[2019-06-30] MEDS: PROTONIX PO SCH ×3 (03:43→21:22)
[2019-06-30] MEDS: LOVENOX SUBQ SCH (03:43)
[2019-06-30 04:03] LABS: HEMOGLOBIN A1C 5.4 % (4.8-6.0)
[2019-06-30 04:14] LABS: CHOLESTEROL 147 mg/dL (0-200); HDL 38 mg/dL (35-55); LDL 33 mg/dL; TRIGLYCERIDES 380 mg/dL (39-160); VLDL 76 mg/dL
[2019-06-30] MEDS: ASPIRIN EC PO SCH (08:36)
[2019-06-30] MEDS: OXYCONTIN PO PRN (13:56)
--- NOTE | 2019-06-30 14:36 | CARDIOLOGY CONSULTATION ---
DATE: 06/30/2019 CONSULTATION REQUESTED BY: Hospitalist service. REASON FOR CONSULTATION: Dyspnea, chest discomfort, abnormal EKG. HISTORY: Mr. Lazar is an unfortunate 74-year-old male who presented to the Urgent Care on June 29 in the afternoon with a 1-week history of having dyspnea, cough productive of some slight whitish phlegm, some wheezing and having some intermittent chest discomfort in the anterior chest. He describes the chest discomfort as heartburn, sometimes associated with meals, sometimes not but usually short lasting. For the past couple of days it has been happening more often. The Urgent Care people recommended an admission to the hospital for further management. The patient in the ER received blood work including troponin levels that have been reported 0.063, 0.055, 0.066 and 0.067. On prior hospital admissions he has had also slight elevation of troponin levels. His albumin is 3.7. ProBNP was 3267 pg/mL. BUN was 43, creatinine was 2.4. His lipid panel showed a total cholesterol of 147 mg/dL, triglycerides 380 mg/dL, LDL was 33 mg/dL, HDL was 38 mg/dL. Hemoglobin was 13.6, platelet count was 134,000. They did an abdominal x-ray and chest x-ray and that has been reported as having clear lungs and a nonobstructive bowel gas pattern. His 12 lead EKG shows sinus rhythm with a right bundle branch block type of pattern and a T-wave abnormality in the lateral leads. PAST MEDICAL HISTORY: Positive for hypertension for a number of years. He also has history of hyperlipidemia for a number of years. The patient was admitted to this hospital in 11/22/2018 with altered mental status. At that time he was found to have evidence of alcohol intoxication and some alcohol withdrawal symptoms during the hospital course. He developed new onset of atrial fibrillation with rapid response requiring cardiology evaluation last time. He had thrombocytopenia and abnormal liver function test as well as abnormal renal function with acute renal failure. The patient was also found to have generalized weakness and hypotension. All those resolved with medical management. Subsequently the patient has been admitted in February 20 with acute kidney injury and urinary retention. He was seen by Dr. Berger at that time. Of note, in 11/27/2018 they did an abdominal and pelvic CT that shows extensive coronary artery calcification. He was also seen by Hematology-Oncology because of his thrombocytopenia . SURGICAL HISTORY: Positive for bilateral hip replacement by Dr. Napier the left done 2 years ago and the right done 3 years ago. He has had appendectomy. SOCIAL HISTORY: He is a . twice in January 2018 from heart complications. The patient has been a smoker of 1 to 2 packs a day for many years since he was 18 and lately he has cut down to half a pack a day. He used to drink alcohol heavily and he said that he had quit for a while. Lately he has been drinking some bourbon 2 to 3 drinks in the afternoon. 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 REVIEW OF SYSTEMS: The patient admits to the fact that several years ago he had a heart catheterization and at some point, they told him that he had a 60% blockage in one of his arteries. The patient has some history of snoring. He has chronic back pain and he sees Dr. [facility] to handle that with opioids. The patient is limited to ambulate because of chronic back pain and also has some claudication. FAMILY HISTORY: Positive for heart disease in one sister. There is no history of diabetes in his family. PHYSICAL EXAMINATION: Vital signs: Blood pressure is 118/64, temperature 97.5 degrees, pulse 60, respirations 20. He is elderly, in no distress. HEENT: Unremarkable. Chest: Bilateral rhonchi and wheezes. Heart: Sounds are regular rhythmic. There is a soft systolic murmur over the aortic area. Abdomen: Obese, nontender. There is no hepatomegaly. Extremities: Showed decreased pulses in the right leg. The left leg has better pulses. No edema noted. Neurological: Nonfocal. Moves 4 extremities. IMPRESSION: 1, Patient presenting with increasing dyspnea and chest pain. Suspect crescendo angina pectoris. He seems to have congestive heart failure based on the elevation of pro BNP level up to 3267 pg/mL. He does have extensive coronary atherosclerosis noted on CT scan of the abdomen from November of this year. He also has an abnormal electrocardiogram. His symptoms are very consistent with ischemic heart disease and diastolic heart failure secondary to it. ADDITIONAL DIAGNOSIS: 1. Hypertension. 2. Hyperlipidemia. 3. History of long-term smoker with chronic obstructive pulmonary disease. 4. History of long-term alcohol use with liver dysfunction. 5. Chronic kidney disease, probably stage 3 to 4. 6. Chronic back pain on opioids. RECOMMENDATION: At this time, we will arrange for a myocardial perfusion stress test to further evaluate his case. We will do an echocardiogram. Further advice will be forthcoming. The patient probably is going to end up requiring a heart catheterization prior to discharge. cc: Juice Bernal MD MTDD
[2019-07-01] MEDS: LOVENOX SUBQ SCH (03:02)
[2019-07-01] MEDS: OXYCONTIN PO PRN (04:06)
[2019-07-01 06:38] LABS: BASO# 0.02 X1000 (0.0-0.2); BASO% 0.4 % (0.0-0.8); EOS# 0.26 X1000 (0.0-0.7); EOS% 4.8 % (0.0-10.0); HEMATOCRIT 38.4 % (42.0-52.0); HEMOGLOBIN 11.8 g/dL (14.0-18.0); IMM GRAN# 0.02 X1000 (0.0-0.04); IMM GRAN% 0.4 % (0.0-0.5); LYMPH# 1.57 X1000 (1.2-3.4); LYMPH% 28.8 % (20.5-51.1); MCH 30.1 PG (27-31); MCHC 30.7 g/dL (33-37); MONO# 0.44 X1000 (0.11-0.59); MONO% 8.1 % (1.7-9.3); MPV 10.8 FL (7.4-10.4); NEUT# 3.15 X1000 (1.4-6.5); NEUT% 57.5 % (42.2-75.2); PLT 117 X1000 (130-400); RBC 3.92 XMIL (4.7-6.1); RDW 13.3 % (11.5-14.5); WBC 5.46 X1000 (4.8-10.8)
[2019-07-01 07:19] LABS: CALCIUM 8.3 mg/dL (8.8-10.2); CREATININE 2.1 mg/dL (0.7-1.2); MAGNESIUM 1.7 mg/dL (1.5-2.7); POTASSIUM 4.2 mmol/L (3.5-5.1)
--- NOTE | 2019-07-01 07:42 | ECHO REPORT ---
ORDER DATE: 06/30/2019 INTERPRETING PHYSICIAN: Dr. Bernal REQUESTING PHYSICIAN: CLINICAL INDICATIONS: This is a 74-year-old male with chest pain, dyspnea. M-MODE MEASUREMENTS: Right ventricle: cm. Left ventricle end diastole: 5.3 cm. Left ventricle end systole: 3.4 cm. Posterior wall: 1.4 cm. Interventricular septum: 1.5 cm. Left atrium: Not measured in this study. Aortic root: 3.7 Optison was added to optimize visualization of endocardium. SUMMARY OF 2-DIMENSIONAL IMAGIN. The left ventricular chamber appears to be mildly enlarged. Left ventricular systolic function is normal. Ejection fraction is about 60%. There is no wall motion abnormality. 2. Left atrium is markedly dilated. 3. Right-sided chambers are borderline enlarged. 4. Mitral valve shows no significant regurgitation. 5. The tricuspid valve shows also no significant regurgitation. 6. Pulmonary pressure is estimated at 24 to 29 mmHg. 7. Pulmonic valve is normal. Color flow mapping is unremarkable. 8. Aortic valve looks normal. Color flow mapping is unremarkable. 9.There is no pericardial effusion, mass or thrombus. Clinical correlation is recommended. cc: Juice Bernal MD [facility]
[2019-07-01] MEDS: PROTONIX PO SCH (08:24)
[2019-07-01] MEDS: ASPIRIN EC PO SCH (08:24)
[2019-07-01 08:50] VITALS: BP 157/70
--- NOTE | 2019-07-01 09:58 | EKG Report ---
Test Performed on : 07/01/2019 06:03:38 AM Test Reason : chest pain CAD Blood Pressure : / mmHG Vent. Rate : 075 BPM Atrial Rate : 075 BPM P-R Int : 170 ms QRS Dur : 142 ms QT Int : 436 ms P-R-T Axes : 020 -14 -11 degrees QTc Int : 486 ms Normal sinus rhythm. Right bundle branch block Abnormal ECG When compared with ECG of 29-JUN-2019 17:41, (Unconfirmed) T wave inversion no longer evident in Lateral leads Confirmed by Neema ESTRADA, Gregg ([id number]) on 07/02/2019 8:36:49 AM
--- NOTE | 2019-07-01 12:07 | CARDIOLOGY PROGRESS NOTE ---
DATE: 07/01/2019 CHIEF COMPLAINT: Shortness of breath. SUBJECTIVE: Mr. Lazar is feeling better today. He is not having any chest discomfort at this time. He says that he is breathing more comfortably. EKG shows sinus rhythm with a right bundle branch block and nonspecific T wave in inferior leads. His telemetry shows no arrhythmia. OBJECTIVE: Vital signs: Blood pressure is 157/70, temperature 97.5, pulse 75, respirations 17. The patient is awake, alert, no distress. HEENT is unremarkable. Chest: Diminished breath sounds without rales. Heart sounds are regular and rhythmic. I do not hear any specific gallop or murmur. His abdomen is obese, nontender. Extremities showed no edema. Neurologic: He is awake, follows commands. DIAGNOSTIC DATA: Today, his ProBNP has dropped to 2210 picograms per mL. His lipid panel from yesterday showed cholesterol was 147, LDL was 33, HDL was 38. His BUN is down to 32, creatinine is down to 2.1. Hemoglobin is 11.8, platelet count is 117,000. The patient at this time is complaining of being constipated, and he wants to go home and do outpatient testing. I have reviewed the echocardiogram from yesterday that shows normal left ventricular ejection fraction at 60% with marked dilatation of left atrium and no significant valvular abnormality. IMPRESSION: 1. The patient presented to the hospital with increasing dyspnea and congestive heart failure more than likely diastolic given his normal EF by echocardiogram. 2. Extensive coronary atherosclerosis. The patient is likely to have significant obstructive coronary artery disease. 3. Abnormal EKG. 4. Hypertension. 5. Chronic kidney disease stage 3 to 4.(Creatinine Clearance reported to be 31 ml/min). 6. residential smoker with chronic obstructive pulmonary disease. 7. 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 8. Chronic back pain with opioid usage. RECOMMENDATIONS: At this time, the patient is requesting to be discharged. From my viewpoint, I think it is a bad idea; however, he is insisting on his discharge. I will discuss that with the hospitalist. He really needs to pursue stress testing or heart catheterization. He claims that he would like to have all that done in [place]. cc: MD ANA Vasques
[2019-07-01 14:01] LABS: CREATININE 2.1 mg/dL (0.7-1.2); UR CREATININE 50.6 mg/dL (14-26); UR CREATININE TOTAL 936.1 mg/24 (800-1800); UR PROTEIN 116.2 mg/dL
--- NOTE | 2019-07-01 17:00 | DISCHARGE SUMMARY ---
ADMISSION DATE: 07/01/2019 DISCHARGE DATE: 07/01/2019 DATE OF LEAVING AGAINST MEDICAL ADVICE: 07/01/2019. DISPOSITION: Hopefully home. CONSULTATION DURING THIS ADMISSION: Cardiology was consulted. Patient was seen by Dr. Bernal. INVASIVE PROCEDURES DONE DURING THIS ADMISSION: None. IMAGING STUDIES OF SIGNIFICANCE: 1. A KUB shows no acute disease. 2. A chest x-ray was also clear. 3. An echocardiogram showed an ejection fraction of 60%. No wall motion abnormality. Right- sided chambers are borderline enlarged. Pulmonary pressures at 24 to 29 mmHg. ADMISSION DIAGNOSES: 1. Chest pain syndrome. 2. Atrial fibrillation. 3. Acute kidney injury on chronic. 4. Hypertensive heart and kidney disease. 5. Chronic diastolic failure. 6. Chronic obstructive pulmonary disease. 7. Paroxysmal atrial fibrillation. DIAGNOSES AT THE TIME OF DISCHARGE: 1. Dyspnea on presentation secondary to congestive heart failure with preserved ejection fraction. 2. Extensive coronary atherosclerosis disease. 3. Chronic kidney disease stage 3B to 4. 4. Chronic pain syndrome. 5. Paroxysmal atrial fibrillation. 6. Acute hypoxemic respiratory failure, improved. PRESENTING COMPLAINT: Chest pain. HISTORY OF PRESENTING COMPLAINT: Mr. Lazar is a 74-year-old male who has a past history of atrial fibrillation, COPD, CKD, and coronary atherosclerosis. Comes to the emergency department because of chest discomfort, shortness of breath. The patient was found initially to be hypotensive and hypoxemic. Mr. Lazar was admitted to the step-down unit (PVC) for further medical care. HOSPITAL COURSE: Mr. Lazar was admitted to [facility]. Was given few doses of Lasix, was evaluated and Cardiology was consulted. Patient was seen by Dr. Bernal. Mr. Lazar's admitting pro-B was 3269. This got slightly better to 2210. A urine 24-hour collection was done which showed stage IIIB CKD with nephritic range proteinuria, not quite nephrotic yet, which we think is all related to hypertensive nephrosclerosis. Mr. Lazar during the hospital course significantly improved from the symptom standpoint. However, because of the fact that he went into acute congestive heart failure, hypotension, he was advised to stay for cardiac risk stratification. Dr. Bernal spent extensive amount of time with him explaining to him the need for stress test and possible left heart catheterization. However, Mr. Lazar was very adamant in wanting to go home. When I went to evaluate him today, there were 2 other male family members at the bedside. Mr. Lazar tells me that he has other 3 sisters, 1 of which is coming from [place] who is about 84 years old, and he wants to spend the end of year s [place] all with them, so he was going to leave against medical advice. I did advise him that his pro-B was elevated, which signifies that he was in some form of congestive failure, and the fact that his EKGs were abnormal, I was in agreement with Dr. Bernal to do more cardiac risk stratification and that going home will be at an enormous risk if anything should happen. Mr. Lazar tells me he understands the risks and he understands that he also needs to follow up, but he wants to leave the hospital today. Mr. Lazar therefore signed against medical advice and left with his family. cc: Micah Beltran MD
== END 2019-07-01 13:18 | disposition left against medical advice (07) ==
LOC: ED 17:02 → 2N 17:02 → SUATTDRO 06-30 02:42
PROVIDERS: ATTEND Internal Medicine

== ENCOUNTER 2019-09-17 07:17 | Inpatient (IN) ==
[2019-09-17] MEDS ORDERED: ZOFRAN IV ONE ×2 (08:41→11:29)
[2019-09-17] MEDS ORDERED: NS 1,000 ML IV ONE ×2 (08:42→12:52)
--- NOTE | 2019-09-17 08:57 | Diag Imaging Result Doc PS360 ---
CHEST-1 VIEW - 09/17/2019 INDICATION: cough COMPARISON: 06/29/2019 FINDINGS: There has been decrease in the small focal infiltrate or area of atelectasis in the lateral left lung base. No new infiltrates. There is significant cardiomegaly and pulmonary vascular congestion. No pleural effusions. IMPRESSION: Faint persistent infiltrate or area of atelectasis in the left lung base. Cardiomegaly and pulmonary vascular congestion. Electronically signed by Christos Castro 09/17/2019 8:55 AM
[2019-09-17 09:04] LABS: URINE SOURCE CLEAN CATCH
[2019-09-17 09:08] LABS: BASO# 0.02 X1000 (0.0-0.2); BASO% 0.3 % (0.0-0.8); EOS# 0.07 X1000 (0.0-0.7); EOS% 1.1 % (0.0-10.0); HEMATOCRIT 43.2 % (42.0-52.0); HEMOGLOBIN 14.3 g/dL (14.0-18.0); MCH 31.3 PG (27-31); MCHC 33.1 g/dL (33-37); MCV 94.5 FL (81-99); MONO# 0.57 X1000 (0.11-0.59); MONO% 8.8 % (1.7-9.3); MPV 10.5 FL (7.4-10.4); NEUT# 4.89 X1000 (1.4-6.5); NEUT% 75.8 % (42.2-75.2); PLT 113 X1000 (130-400); RBC 4.57 XMIL (4.7-6.1); RDW 14.1 % (11.5-14.5); WBC 6.45 X1000 (4.8-10.8)
[2019-09-17 09:10] LABS: BILIRUBIN URINE NEGATIVE (NEGATIVE); BLOOD URINE MODERATE (NEGATIVE); COLOR YELLOW; GLUCOSE URINE NEGATIVE (NEGATIVE); KETONE URINE NEGATIVE (NEGATIVE); LEUKOCYTES URINE NEGATIVE (NEGATIVE); NITRITE URINE NEGATIVE (NEGATIVE); PROTEIN URINE 200 mg/dL (NEGATIVE); SP GRAVITY URINE 1.011; TURBIDITY URINE CLEAR (CLEAR); UROBILINOGEN URINE NORMAL (NORMAL)
[2019-09-17 09:13] LABS: UR EPITHELIAL CELLS <10 /HPF (<10); URINE BACTERIA NEGATIVE /HPF; URINE RBC <10 /HPF (<10); URINE WBC <10 /HPF (<10)
[2019-09-17] MEDS ORDERED: TYLENOL PO ONE (09:13)
[2019-09-17] MEDS ORDERED: DUONEB (A & A) INH ONE (09:41)
[2019-09-17 09:49] LABS: ALB/GLOB RATIO 1.1; ALBUMIN 3.4 g/dL (3.5-5.0); CALCIUM 8.4 mg/dL (8.8-10.2); CREATININE 3.3 mg/dL (0.7-1.2); POTASSIUM 4.7 mmol/L (3.5-5.1); TOTAL BILIRUBIN 0.94 mg/dL (0.20-1.00); TOTAL PROTEIN 6.5 g/dL (6.3-8.3)
--- NOTE | 2019-09-17 10:41 | Diag Imaging Result Doc PS360 ---
EXAM: CT ABDOMEN/PELVIS W/O CONTRAST 09/17/2019 HISTORY: LLQ abdo pain TECHNIQUE: This exam was performed using automated exposure control, adjustment of mA or kV according to patient size, and/or use of iterative reconstruction technique. COMMENT: There are platelike opacities in the inferior lingula which have not changed since 02/20/2019. There are some slightly irregular opacities present in the area of the as ago esophageal recess of the right lower lobe which were not present previously but may represent atelectasis. There are coronary calcifications. The liver is hypodense consistent with fatty change. This appears worse than on the previous study. The spleen and adrenal glands are not enlarged. There are no apparent gallstones. There is a fair amount of fluid distending the stomach. There are multiple renal cysts. There is no evidence of hydronephrosis or stones. There are scattered diverticula particularly in the left colon. Small bowel is not distended. There are atherosclerotic calcifications in the aorta with dilatation of the proximal common iliac artery on the left to 2.3 cm. This has not changed significantly since the previous study. There is diverticulosis particularly in the sigmoid colon. No evidence of abscess or abnormal fluid collections is present. The urinary bladder is not distended. There is beam hardening artifact from bilateral hip prostheses. There is bilateral spondylolysis at L5. There is degenerative disc and facet change in the lumbar spine. IMPRESSION: Diverticulosis coli without evidence of acute diverticulitis. Minimal right lower lobe atelectasis. Hepatic steatosis. Other nonacute findings as described above. Electronically signed by Javier Mendez 09/17/2019 10:38 AM
[2019-09-17 11:15] LABS: INR 0.99; PROTIME 13.2 Seconds (11.0-16.0)
[2019-09-17 11:16] LABS: PTT 27.6 Seconds (22.3-41.8)
[2019-09-17] MEDS ORDERED: ATIVAN PO ONE (11:28)
[2019-09-17 12:14] LABS: CK INDEX 0.7 (0.0-2.5); CK-MB 17.55 ng/mL (0.0-5.0)
[2019-09-17] MEDS ORDERED: ATIVAN IV ONE (12:55)
--- NOTE | 2019-09-17 12:55 | PROVIDER DOCUMENTATION ---
This chart was entered by Emily Coates Scribe, acting as scribe for Von Lazar CRNP. HPI-General Adult - General Source: patient - History of Present Illness -Gen Adult Nature of Presenting Problems: 74yom presents to ED cc nausea, vomiting, constipation, chronic cough that is increased over last 3 days. Pt denies f/d. He reports he has been drinking more alcohol than usual due to family problems. Pt is nontoxic and in no acute distress upon exam. Location of Pain/Injury: reports: abdomen Quality of Pain: reports: aching Severity: reports: mild Onset/Duration: reports: 3 days ago Timing: reports: still present Context/Activities at Onset: reports: light activity Modifying Factors: improves with: nothing Associated Symptoms: reports: constipation, cough, nausea, vomiting Similar Symptoms Previously?: No Recently seen or treated by another doctor?: No <Von Lazar - Last Filed: 09/17/19 12:55> <Gee Chung - Last Filed: 09/17/19 13:00> - General Chief Complaint: Sore Throat Stated Complaint: SORE THROAT, HIGH BP Time Seen by Provider: 09/17/19 07:24 Allergies/Adverse Reactions: Patient Allergies Allergy/AdvReac Type Severity Reaction Status Date / Time No Known Allergies Allergy Verified 11/21/18 14:43 Home Medications: Home Medication List Medication Instructions Recorded Confirmed Last Taken Type Tamsulosin [Flomax] 2 cap PO HS 11/30/13 06/30/19 06/29/19 08:00 History Lisinopril 40 mg PO DAILY 11/27/18 09/17/19 06/29/19 08:00 History Carvedilol [Coreg] 25 mg PO BID 06/30/19 09/17/19 06/29/19 08:00 History SIMVAstatin [Zocor] 40 mg PO QHS 06/30/19 09/17/19 06/28/19 21:00 History Furosemide [Lasix] 1 tab PO DAILY 09/17/19 09/17/19 Unknown History Gabapentin 60 mg PO BID 09/17/19 09/17/19 Unknown History Review of Systems - Adult - REVIEW OF SYSTEMS - ADULT Constitutional: reports: see HPI. denies: chills, fever, fatique Eyes: reports: no symptoms reported Ears, Nose, Mouth & Throat: reports: no symptoms reported Cardiovascular: reports: no symptoms reported Respiratory: reports: see HPI, chronic cough (worse over last few days). denies: shortness of breath Gastrointestinal: reports: see HPI, abdominal pain (LLQ), constipation (no BM 3 days), nausea, vomiting. denies: diarrhea Genitourinary: reports: no symptoms reported Musculoskeletal: reports: no symptoms reported Integumentary: reports: no symptoms reported Neurological: reports: no symptoms reported Psychiatric: reports: no symptoms reported Endocrine: reports: no symptoms reported Hematologic/Lymphatic: reports: no symptoms reported Allergic/Immunologic: reports: no symptoms reported All Other Systems: Reviewed and Negative <Von Lazar - Last Filed: 09/17/19 12:55> Past History - Adult - PAST MEDICAL HISTORY-ADULT Review of Records: reports: Old Records Reviewed, Nursing Assessment Review, Medications Reviewed, Social history reviewed & non-contributory. Major Childhood Illnesses: reports: denies history Cardiovascular: reports: denies history Respiratory: reports: denies history Gastrointestinal: reports: denies history Obstetrical/Gynecological: reports: denies history Genitourinary: reports: denies history Musculoskeletal: reports: denies history Neurological: reports: denies history Endocrine/Immune: reports: denies history Other Conditions: reports: denies history - IMMUNIZATION STATUS Childhood Immunizations: See Nurse Assessment Flu Vaccine: See Nurse Assessment - FAMILY HISTORY Family History: reviewed, not pertinent - SOCIAL HISTORY Smoking: cigarettes, greater than 1 pack/day Provider spent 3-5 mins advising pt. on dangers of tobacco.: Discussed manners to quit use, and f/u contacts for add'l counseling. <Von Lazar - Last Filed: 09/17/19 12:55> Physical Exam-General - PHYSICAL EXAM-ADULT Initial Vital Signs Reviewed: Yes - CONSTITUTIONAL General Appearance: appears well, alert, obese. negative: anxious, combative - EYES Eyes: PERRL/EOMI, pink conjunctivae. negative: photophobia - HEAD, EARS, NOSE, MOUTH & THROAT HENMT: normocephalic/atraumatic, moist mucous membranes. negative: angioedema - NECK Neck: supple, normal inspection - RESPIRATORY Respiratory: chest non-tender, decreased breath sounds (on left), rhonchi (bilateral with right greater than left), wheezing (bilateral with right greater than left). negative: rales, stridor - CARDIOVASCULAR Cardiovascular: normal peripheral pulses, regular rate, rhythm. negative: bradycardia, tachycardia - GASTROINTESTINAL (ABDOMEN) Abdominal Exam: normal bowel sounds, soft, tenderness (LLQ). negative: distended - MUSCULOSKELETAL Extremity: normal inspection, normal capillary refill. negative: deformity - SKIN Integumentary: normal color, normal turgor, warm/dry. negative: diaphoresis, jaundice, rash - PSYCHIATRIC Psych/Mental Status: normal mood/affect, oriented x 3. negative: anxious <Von Lazar - Last Filed: 09/17/19 12:55> Progress - PLAN OF CARE/RESULTS Progress/Plan/Lab Results: Vital Signs - 8 hr 09/17/19 07:21 Temperature 98.0 F Pulse Rate 95 H Respiratory Rate 20 Blood Pressure 106/60 O2 Sat by Pulse Oximetry 91 L 09/17/19 07:33 Influenza Screen - Final Nasopharyngeal 09/17/19 07:33 Group A Strep Rapid Antigen - Final Throat Laboratory Results - last 24 hr 09/17/19 09/17/19 09/17/19 07:45 08:04 08:04 WBC RBC Hgb Hct MCV MCH MCHC RDW Std Deviation Plt Count MPV Immature Gran % (Auto) Neut % (Auto) Lymph % (Auto) [place] % (Auto) Eos % (Auto) Baso % (Auto) Immature Gran # (Auto) Neut # (Auto) Lymph # (Auto) [place] # (Auto) Eos # (Auto) Baso # (Auto) Estimated GFR/1.73 m2 18 Troponin T High Sens 94 H Urine Source CLEAN CATCH Urine Color YELLOW Urine Turbidity CLEAR Urine pH 6.0 Ur Specific [place] 1.011 Urine Protein 200 A Ur Glucose (Stick) NEGATIVE Ur Ketones (Stick) NEGATIVE Urine Blood MODERATE A Urine Nitrite NEGATIVE Urine Bilirubin NEGATIVE Urobilinogen Dipstick NORMAL Urine Leukocytes NEGATIVE Urine WBC (Auto) <10 Urine RBC (Auto) <10 U Epithel Cells (Auto) <10 Urine Bacteria (Auto) NEGATIVE 09/17/19 08:04 WBC 6.45 RBC 4.57 L Hgb 14.3 Hct 43.2 MCV 94.5 MCH 31.3 H MCHC 33.1 RDW Std Deviation 14.1 Plt Count 113 L MPV 10.5 H Immature Gran % (Auto) 0.0 Neut % (Auto) 75.8 H Lymph % (Auto) 14.0 L [place] % (Auto) 8.8 Eos % (Auto) 1.1 Baso % (Auto) 0.3 Immature Gran # (Auto) 0.00 Neut # (Auto) 4.89 Lymph # (Auto) 0.90 L [place] # (Auto) 0.57 Eos # (Auto) 0.07 Baso # (Auto) 0.02 Estimated GFR/1.73 m2 Troponin T High Sens Urine Source Urine Color Urine Turbidity Urine pH Ur Specific [place] Urine Protein Ur Glucose (Stick) Ur Ketones (Stick) Urine Blood Urine Nitrite Urine Bilirubin Urobilinogen Dipstick Urine Leukocytes Urine WBC (Auto) Urine RBC (Auto) U Epithel Cells (Auto) Urine Bacteria (Auto) Orders Category Date Time Status NEWS Score 2-4:Order NEWS Lactate Series NOW Care 09/17/19 07:26 Active CHEST-1 VIEW [RAD] Stat Exams 09/17/19 08:[address] ABD/PELVIS W/IV CONT ONLY [CT] Stat Exams 09/17/19 08:40 Ordered CBC WITH ELECTRONIC DIFF [HEME] Stat Lab 09/17/19 08:04 Completed COMPREHENSIVE METABOLIC PANEL [CHEM] Stat Lab 09/17/19 08:04 Results DIRECT STREP Stat Lab 09/17/19 07:33 Completed INFLUENZA SCREEN A/B Stat Lab 09/17/19 07:33 Completed LACTATE, PLASMA [CHEM] Lab 09/17/19 08:09 Ordered LACTATE, PLASMA [CHEM] Lab 09/17/19 10:30 Uncollected LACTATE, PLASMA [CHEM] Lab 09/17/19 13:30 Uncollected TROPONIN T HIGH SENSITIVITY Stat Lab 09/17/19 08:04 Completed UA [URINALYSIS W/POSS RFLX CULT] [URINALYSIS] Stat Lab 09/17/19 07:45 Completed pro-bnp [PRO B-NATRIURETIC PEPTIDE] Stat Lab 09/17/19 09:40 Uncollected 0.9% Sodium Chloride Inj [Ns] 1,000 ml Med 09/17/19 08:42 Discontinued IV 999 mls/hr Acetaminophen [Tylenol] Med 09/17/19 09:13 Discontinued 1,000 mg PO NOW ONE Albuterol 2.5MG/Ipratrop 0.5MG [Duoneb (A & A)] Med 09/17/19 09:41 Discontinued 3 ml INH NOW ONE Ondansetron [Zofran] Med 09/17/19 08:41 Discontinued 4 mg IV NOW ONE Aerosol Treatments Routine Oth 09/17/19 09:41 Active Aerosol Treatments Stat Oth 09/17/19 09:41 Active Result Diagrams: 09/17/19 08:04 09/17/19 08:04 - XRAY 1 XRAY: Bilateral XRAY Study: Chest Impression: See EMR Report (IMPRESSION: Faint persistent infiltrate or area of atelectasis in the left lung base. Cardiomegaly and pulmonary vascular congestion. Electronically signed by Christos Castro 09/17/2019 8:55 AM) - CT/MRI 1 CT Study: Abdomen Impression: See EMR Report (IMPRESSION: Diverticulosis coli without evidence of acute diverticulitis. Minimal right lower lobe atelectasis. Hepatic steatosis. Other nonacute findings as described above. Electronically signed by Javier Mendez 09/17/2019 10:38 AM) - CONSULTS/PCP/HOSPITALIST Notification Consult Disposition: Admit - CHANGE OF SHIFT REPORT (ED Provider) 1 Report Given and Care Transferred to:: Dr Chung Time of Transfer: 12:54 <Von Lazar - Last Filed: 09/17/19 12:55> - PLAN OF CARE/RESULTS Progress/Plan/Lab Results: Vital Signs - 8 hr 09/17/19 07:21 09/17/19 10:57 Temperature 98.0 F Pulse Rate 95 H 90 Respiratory Rate 20 18 Blood Pressure 106/60 O2 Sat by Pulse Oximetry 91 L 97 09/17/19 07:33 Influenza Screen - Final Nasopharyngeal 09/17/19 07:33 Group A Strep Rapid Antigen - Final Throat Laboratory Results - last 24 hr 09/17/19 09/17/19 09/17/19 07:45 08:04 08:04 WBC RBC Hgb Hct MCV MCH MCHC RDW Std Deviation Plt Count MPV Immature Gran % (Auto) Neut % (Auto) Lymph % (Auto) [place] % (Auto) Eos % (Auto) Baso % (Auto) Immature Gran # (Auto) Neut # (Auto) Lymph # (Auto) [place] # (Auto) Eos # (Auto) Baso # (Auto) PT INR PTT (Actin FS) Sodium 137 Potassium 4.7 Chloride 93 L Carbon Dioxide 20 L Anion Gap 24 BUN 76 H Creatinine 3.3 H Estimated GFR/1.73 m2 18 BUN/Creatinine Ratio 23 Glucose 98 Calculated Osmolality 296 Calcium 8.4 L Total Bilirubin 0.94 AST 162 H ALT 54 H Alkaline Phosphatase 110 Creatine Kinase Creatine Kinase Index CK-MB (CK-2) Troponin T High Sens 94 H [id number] Pept Total Protein 6.5 Albumin 3.4 L Globulin 3.1 Albumin/Globulin Ratio 1.1 Plasma Lactate Urine Source CLEAN CATCH Urine Color YELLOW Urine Turbidity CLEAR Urine pH 6.0 Ur Specific [place] 1.011 Urine Protein 200 A Ur Glucose (Stick) NEGATIVE Ur Ketones (Stick) NEGATIVE Urine Blood MODERATE A Urine Nitrite NEGATIVE Urine Bilirubin NEGATIVE Urobilinogen Dipstick NORMAL Urine Leukocytes NEGATIVE Urine WBC (Auto) <10 Urine RBC (Auto) <10 U Epithel Cells (Auto) <10 Urine Bacteria (Auto) NEGATIVE 09/17/19 09/17/19 09/17/19 08:04 08:04 08:04 WBC 6.45 RBC 4.57 L Hgb 14.3 Hct 43.2 MCV 94.5 MCH 31.3 H MCHC 33.1 RDW Std Deviation 14.1 Plt Count 113 L MPV 10.5 H Immature Gran % (Auto) 0.0 Neut % (Auto) 75.8 H Lymph % (Auto) 14.0 L [place] % (Auto) 8.8 Eos % (Auto) 1.1 Baso % (Auto) 0.3 Immature Gran # (Auto) 0.00 Neut # (Auto) 4.89 Lymph # (Auto) 0.90 L [place] # (Auto) 0.57 Eos # (Auto) 0.07 Baso # (Auto) 0.02 PT INR PTT (Actin FS) Sodium Potassium Chloride Carbon Dioxide Anion Gap BUN Creatinine Estimated GFR/1.73 m2 BUN/Creatinine Ratio Glucose Calculated Osmolality Calcium Total Bilirubin AST ALT Alkaline Phosphatase Creatine Kinase 2657 H Creatine Kinase Index 0.7 CK-MB (CK-2) 17.55 H Troponin T High Sens [id number]-Hpodjroocei Pept 946 H Total Protein Albumin Globulin Albumin/Globulin Ratio Plasma Lactate Urine Source Urine Color Urine Turbidity Urine pH Ur Specific [place] Urine Protein Ur Glucose (Stick) Ur Ketones (Stick) Urine Blood Urine Nitrite Urine Bilirubin Urobilinogen Dipstick Urine Leukocytes Urine WBC (Auto) Urine RBC (Auto) U Epithel Cells (Auto) Urine Bacteria (Auto) 09/17/19 09/17/19 09/17/19 08:04 08:09 10:36 WBC RBC Hgb Hct MCV MCH MCHC RDW Std Deviation Plt Count MPV Immature Gran % (Auto) Neut % (Auto) Lymph % (Auto) [place] % (Auto) Eos % (Auto) Baso % (Auto) Immature Gran # (Auto) Neut # (Auto) Lymph # (Auto) [place] # (Auto) Eos # (Auto) Baso # (Auto) PT 13.2 INR 0.99 PTT (Actin FS) 27.6 Sodium Potassium Chloride Carbon Dioxide Anion Gap BUN Creatinine Estimated GFR/1.73 m2 BUN/Creatinine Ratio Glucose Calculated Osmolality Calcium Total Bilirubin AST ALT Alkaline Phosphatase Creatine Kinase Creatine Kinase Index CK-MB (CK-2) Troponin T High Sens [id number]-Xiisrtaaequ Pept Total Protein Albumin Globulin Albumin/Globulin Ratio Plasma Lactate 6.3 H* 4.7 H* Urine Source Urine Color Urine Turbidity Urine pH Ur Specific [place] Urine Protein Ur Glucose (Stick) Ur Ketones (Stick) Urine Blood Urine Nitrite Urine Bilirubin Urobilinogen Dipstick Urine Leukocytes Urine WBC (Auto) Urine RBC (Auto) U Epithel Cells (Auto) Urine Bacteria (Auto) Orders Category Date Time Status Cardiac Monitoring NOW Care 09/17/19 10:12 Active IV Insertion NOW Care 09/17/19 10:12 Completed NEWS Score 2-4:Order NEWS Lactate Series NOW Care 09/17/19 07:26 Active Notify Provider of NEWS Score NOW Care 09/17/19 10:12 Active CHEST-1 VIEW [RAD] Stat Exams 09/17/19 08:[address] ABDOMEN/PELVIS W/O CONTRAST [CT] Stat Exams 09/17/19 10:02 Completed BLOOD CULTURE [BLDCUL] Stat Lab 09/17/19 10:36 Results CBC WITH ELECTRONIC DIFF [HEME] Stat Lab 09/17/19 08:04 Completed CK PROFILE [SP CHEM] Stat Lab 09/17/19 08:04 Completed COMPREHENSIVE METABOLIC PANEL [CHEM] Stat Lab 09/17/19 08:04 Completed DIRECT STREP Stat Lab 09/17/19 07:33 Completed INFLUENZA SCREEN A/B Stat Lab 09/17/19 07:33 Completed LACTATE, PLASMA [CHEM] Lab 09/17/19 08:09 Completed LACTATE, PLASMA [CHEM] Lab 09/17/19 10:36 Completed LACTATE, PLASMA [CHEM] Lab 09/17/19 13:30 Uncollected PROTIME WITH INR [COAG] Stat Lab 09/17/19 08:04 Completed PTT [COAG] Stat Lab 09/17/19 08:04 Completed TROPONIN T HIGH SENSITIVITY Stat Lab 09/17/19 08:04 Completed UA [URINALYSIS W/POSS RFLX CULT] [URINALYSIS] Stat Lab 09/17/19 07:45 Completed pro-bnp [PRO B-NATRIURETIC PEPTIDE] Stat Lab 09/17/19 08:04 Completed 0.9% Sodium Chloride Inj [Ns] 1,000 ml Med 09/17/19 08:42 Discontinued IV 999 mls/hr Acetaminophen [Tylenol] Med 09/17/19 09:13 Discontinued 1,000 mg PO NOW ONE Albuterol 2.5MG/Ipratrop 0.5MG [Duoneb (A & A)] Med 09/17/19 09:41 Discontinued 3 ml INH NOW ONE Lorazepam [Ativan] Med 09/17/19 11:28 Discontinued 0.5 mg PO NOW ONE Ondansetron [Zofran] Med 09/17/19 08:41 Discontinued 4 mg IV NOW ONE Ondansetron [Zofran] Med 09/17/19 11:29 Discontinued 4 mg IV NOW ONE Aerosol Treatments Routine Oth 09/17/19 09:41 Completed Aerosol Treatments Stat Oth 09/17/19 09:41 Completed O2 Per Protocol Stat Oth 09/17/19 10:12 Active Result Diagrams: 09/17/19 08:04 09/17/19 08:04 - CONSULTS/PCP/HOSPITALIST Notification #1 *Consult/PCP/Hospitalist*: Sarah Beth Warren Time Discussed: 12:46 Consult Disposition: Will see in ED, Admit <Gee Chung - Last Filed: 09/17/19 13:00> Departure - Departure Date of Disposition Decision: 09/17/19 Certified Medical Emergency: Emergent - Critical Care Note This patient required my direct & personal management of CC.: No <Von Lazar - Last Filed: 09/17/19 12:55> - Departure Time of Disposition Decision: 12:46 <Gee Chung - Last Filed: 09/17/19 13:00> - Departure DIAGNOSIS: Alcohol abuse, GI bleeding, Renal insufficiency, Dehydration syndrome, CHF (congestive heart failure) Disposition: ADMITTED INPATIENT 09 Condition: Fair Additional Instructions: ED Follow Up Instructions: You have been treated by a care provider in the Emergency Department. These instructions are being provided to you so you can have an understanding of how to care for yourself upon discharge. Upon discharge from the Emergency Department, you are responsible for making arrangements for follow-up care by a physician of your choice. Take all prescribed medications as directed. Return to the Emergency Department immediately for any new or worsening symptoms. You may call the Physician Referral phone number at [phone] to obtain a list of Physicians who are taking new patients. Referrals and Follow-Ups: Junaid Watson MD [Primary Care Provider] - Discharge Education: Tobacco Use Disorder Attestation - Physician/ SKYLA Attestation Patient care was provided by Advanced Practice Provider:: Yes Advanced Practice Provider:: Vno Lazar Advanced Practice Provider documentation review:: The Mid-level provider documentation, treatment plan and medical decision making was reviewed by the physician who agrees with all treatment and medical decision making by the MLP. The physician spent face to face time with patient:: Yes Advanced Practice Provider documentation review:: Supervising physician onsite and consulted in the evaluation and care of this patient. The physician did have a face to face encounter with the patient. <Von Lazar - Last Filed: 09/17/19 12:55> This chart was documented by the indicated scribe, (Emily Coates Scribe) and accurately reflects the services I performed and decisions made by Cady traylor Reagan R., CRNP, as attested by the provider's signature.
[2019-09-17] MEDS ORDERED: ATARAX PO PRN (13:29)
[2019-09-17] MEDS ORDERED: ROBAXIN PO PRN (13:29)
[2019-09-17] MEDS ORDERED: BENTYL PO PRN (13:29)
[2019-09-17] MEDS ORDERED: M.V.I.-12 10 ML, FOLIC ACID 1 MG, MAGNESIUM SULFATE 1 GM, THIAMINE 100 MG in NS 1,000 ML IV ONE (13:29)
[2019-09-17] MEDS: PROTONIX IV SCH (14:00)
[2019-09-17] MEDS ORDERED: LIBRIUM PO SCH ×2 (14:00→20:00)
[2019-09-17 14:36] LABS: MAGNESIUM 1.8 mg/dL (1.5-2.7); PHOSPHORUS 4.5 mg/dL (2.7-4.5)
[2019-09-17 14:55] LABS: UR AMPHETAMINES QUAL NONE DETECTED (NONE DETECT); UR BARBITUATES QUAL NONE DETECTED (NONE DETECT); UR BENZODIAZEPIN QUAL NONE DETECTED (NONE DETECT); UR CANNABINOIDS QUAL NONE DETECTED (NONE DETECT); UR COCAINE QUAL NONE DETECTED (NONE DETECT); UR METHADONE QUAL NONE DETECTED (NONE DETECT); UR OPIATES QUAL NONE DETECTED (NONE DETECT); UR OXYCODONE QUAL PRESUMPTIVE POSITIVE (NONE DETECT); UR PCP QUAL NONE DETECTED (NONE DETECT)
[2019-09-17 15:42] LABS: CK INDEX 0.8 (0.0-2.5); CK-MB 15.7 ng/mL (0.0-5.0)
[2019-09-17] MEDS ORDERED: LASIX IV ONE (16:10)
[2019-09-17] MEDS: DUONEB (A & A) INH SCH ×3 (16:40→23:23)
[2019-09-17] MEDS: ATIVAN IV PRN (17:36)
[2019-09-17] MEDS: NICODERM PATCH TD SCH (17:36)
[2019-09-17 17:37] LABS: URINE SOURCE CATH
[2019-09-17 17:42] LABS: BILIRUBIN URINE NEGATIVE (NEGATIVE); BLOOD URINE MODERATE (NEGATIVE); COLOR YELLOW; GLUCOSE URINE NEGATIVE (NEGATIVE); KETONE URINE TRACE mg/dL (NEGATIVE); LEUKOCYTES URINE NEGATIVE (NEGATIVE); NITRITE URINE NEGATIVE (NEGATIVE); PROTEIN URINE 300 mg/dL (NEGATIVE); SP GRAVITY URINE 1.012; TURBIDITY URINE CLEAR (CLEAR); UROBILINOGEN URINE NORMAL (NORMAL)
[2019-09-17 17:43] LABS: UR EPITHELIAL CELLS <10 /HPF (<10); URINE BACTERIA NEGATIVE /HPF; URINE RBC <10 /HPF (<10); URINE WBC <10 /HPF (<10)
[2019-09-17 17:56] LABS: BASO# 0.02 X1000 (0.0-0.2); BASO% 0.3 % (0.0-0.8); EOS# 0.03 X1000 (0.0-0.7); EOS% 0.4 % (0.0-10.0); HEMATOCRIT 40.8 % (42.0-52.0); HEMOGLOBIN 13.4 g/dL (14.0-18.0); LYMPH# 0.97 X1000 (1.2-3.4); LYMPH% 13.6 % (20.5-51.1); MCH 31.5 PG (27-31); MCHC 32.8 g/dL (33-37); MCV 95.8 FL (81-99); MONO# 0.66 X1000 (0.11-0.59); MONO% 9.2 % (1.7-9.3); NEUT# 5.46 X1000 (1.4-6.5); NEUT% 76.5 % (42.2-75.2); PLT 97 X1000 (130-400); RBC 4.26 XMIL (4.7-6.1); RDW 14.2 % (11.5-14.5); WBC 7.14 X1000 (4.8-10.8)
[2019-09-17] MEDS: THIAMINE 500 MG in NS 50 ML IV SCH (18:34)
--- NOTE | 2019-09-17 19:08 | HISTORY AND PHYSICAL ---
Addendum to History and Physical dictated by the nurse practitioner. I agree with most components of history, physical, assessment, and plan. In brief, Mr. Lazar is a 74-year-old man, with past medical history of alcohol use disorder and alcohol abuse, paroxysmal atrial fibrillation, chronic kidney disease stage 3, essential hypertension and hypertensive heart disease, congestive heart failure with preserved ejection fraction, COPD and chronic hypoxic respiratory failure, on home oxygen, chronic pain, diverticulosis, who comes in with chief complaints of nausea, vomiting, weakness, and bright red blood per rectum. The patient has been not feeling well since about 7 days and has been drinking on a daily basis. His friends have been helping him since the last 3 or 4 days while living with him. This morning, patient was not able to come out of bed and walk or stand by himself and was constantly vomiting, so they decided to bring patient to the hospital. In the emergency room, patient was found to have temperature of 98 degrees, pulse of 95, respiratory rate of 15, blood pressure of 106/60. He was saturating 91% on room air. His initial labs had no leukocytosis, acute kidney injury on chronic kidney disease stage 3, and lactic acidosis, so he was resuscitated with intravenous fluids and hospitalist team was consulted for further management. At the time of my evaluation, patient is drowsy and denies any vomiting since he has been in the hospital. He still is feeling weak. He states his last drink was yesterday. CURRENT VITALS: Temperature of 98.5 degrees, pulse 90, respiratory rate 17, blood pressure 128/80, saturating 96% on 2 to 3 L nasal cannula. PHYSICAL EXAMINATION: GENERAL: He is not in acute distress. ORAL CAVITY: Moist. LUNGS: Air entry bilaterally equal. No wheeze or rhonchi. He has mild crackles in infrascapular region. HEART: S1, S2 normal. No murmur or gallop. ABDOMEN: Obese, soft. Mild left lower quadrant tenderness. Active bowel sounds. EXTREMITIES: He has bilateral lower extremity edema. He is drowsy, but arousable. He has flapping tremor of bilateral upper extremities. LABS: Suggestive of hemoglobin of 13.4, platelet of 97,000. He has acute kidney injury on chronic kidney disease. He had lactic acidosis with initial lactate as high as 6.3. Urine oxycodone screen was positive. MICROBIOLOGY: Stool occult blood test was positive. Blood cultures are in Lab. ASSESSMENT: 1. Acute delirium tremens related to alcohol withdrawal in the setting of alcohol use disorder. 2. Acute alcoholic gastritis, probably contributing to nausea and vomiting along with alcohol withdrawal. 3. Mild acute exacerbation of heart failure with preserved ejection fraction, based on crackles on exam with lower extremity edema. 4. Mild acute chronic obstructive pulmonary disease exacerbation, with ongoing tobacco abuse and wheeze on examination. 5. Acute lower GI bleed likely diverticular. Last bowel movement was on 09/15/2019. 6. Acute kidney injury on chronic kidney disease stage 3, in the setting of poor oral intake and vomiting with possibly continuous use of lisinopril and Lasix at home. 7. Elevated troponin in the setting of chronic kidney disease. PLAN: 1. Will start patient on inhaled bronchodilators with inhaled steroids. His wheezes are only mild and he may not require intravenous steroids. I will monitor his respiratory status. 2. I will stop intravenous fluids at the moment, considering mild acute congestive heart failure exacerbation, and give him a dose of Lasix. I will keep Molina catheter for close input and output monitoring. 3. I will start him on chlordiazepoxide taper with intravenous lorazepam as needed for his alcohol withdrawal. 4. His diverticular bleed has stopped, and he has not had any bowel movement since last 48 hours. I will closely monitor his CBC and based on his course, I will consult GI. I will keep him on intravenous Protonix every 12 hours, though he did not have any hematemesis according to the history. 5. I will closely monitor his basic metabolic panel and observe him in ICU. I counseled him about tobacco and alcohol cessation. I answered all of his questions. 40 minutes of critical care time was spent in taking care of this patient. I evaluated him in the emergency room and I discussed the plan of care in detail with him. I also had a detailed discussion about plan of care with his 2 friends at bedside. They were allowed to ask questions. All of their questions were satisfactorily answered. cc: Abraham Allen MD MTDBeulah
[2019-09-17] MEDS: SYMBICORT 160/4.5 MICROGM INHALER INH SCH (19:40)
[2019-09-17] MEDS: COREG PO SCH (20:04)
[2019-09-17] MEDS: LIBRIUM PO SCH (20:05)
[2019-09-18] MEDS: LIBRIUM PO SCH ×2 (02:10→08:40)
[2019-09-18] MEDS: THIAMINE 500 MG in NS 50 ML IV SCH ×3 (02:10→17:26)
[2019-09-18] MEDS: PROTONIX IV SCH ×2 (02:10→14:51)
[2019-09-18] MEDS: ATIVAN IV PRN (02:49)
[2019-09-18] MEDS: DUONEB (A & A) INH SCH ×6 (03:27→23:24)
[2019-09-18 06:00] LABS: BASO# 0.03 X1000 (0.0-0.2); BASO% 0.4 % (0.0-0.8); EOS# 0.23 X1000 (0.0-0.7); EOS% 3.2 % (0.0-10.0); HEMATOCRIT 38.2 % (42.0-52.0); HEMOGLOBIN 12.5 g/dL (14.0-18.0); LYMPH# 1.16 X1000 (1.2-3.4); LYMPH% 16.3 % (20.5-51.1); MCH 31.7 PG (27-31); MCHC 32.7 g/dL (33-37); MONO# 0.55 X1000 (0.11-0.59); MONO% 7.7 % (1.7-9.3); MPV 10.2 FL (7.4-10.4); NEUT# 5.14 X1000 (1.4-6.5); NEUT% 72.4 % (42.2-75.2); PLT 92 X1000 (130-400); RBC 3.94 XMIL (4.7-6.1); RDW 14.2 % (11.5-14.5); WBC 7.11 X1000 (4.8-10.8)
[2019-09-18] MEDS: SYMBICORT 160/4.5 MICROGM INHALER INH SCH ×2 (07:28→19:37)
--- NOTE | 2019-09-18 07:54 | Diag Imaging Result Doc PS360 ---
EXAM: CHEST-1 VIEW INDICATION: dyspnea TECHNIQUE: One view COMPARISON: 09/17/2019 FINDINGS: Lung volumes are low. This causing central vascular crowding. There may also be a component of pulmonary venous congestion. The mild opacity at the left lung base is essentially stable. No new consolidation is identified, otherwise. Cardiac silhouette is stable. IMPRESSION: Lower lung volumes causing central vascular crowding, possibly with a component of pulmonary venous congestion. Stable chest, otherwise. Electronically signed by Eric Root 09/18/2019 7:52 AM
[2019-09-18 08:13] LABS: ALLEN TEST YES; BE 0.3 mmoll (-3.0-3.0); BLOOD TYPE ARTERIAL; HCO3-(ACT) 25.1 mmoll (20.0-26.0); METHB 1.1 % (0.0-1.5); MODALITY VENTIMASK; O2(CT) 16.7 mL/dL (15.0-23.0); O2HB 93.8 % (95.0-99.0); PCO2(98.6) 48 mmHg (35-45); PO2(98.6) 83 mmHg (60-100); SAMPLE BLOOD; THB 12.6 g/dL (11.5-17.4); pH(98.6) 7.35 (7.35-7.45)
[2019-09-18 08:39] LABS: ALB/GLOB RATIO 1.2; ALBUMIN 2.8 g/dL (3.5-5.0); CREATININE 2.7 mg/dL (0.7-1.2); MAGNESIUM 1.8 mg/dL (1.5-2.7); PHOSPHORUS 4.1 mg/dL (2.7-4.5); POTASSIUM 4.1 mmol/L (3.5-5.1); TOTAL BILIRUBIN 0.82 mg/dL (0.20-1.00); TOTAL PROTEIN 5.2 g/dL (6.3-8.3)
[2019-09-18] MEDS: COREG PO SCH ×2 (08:40→20:49)
[2019-09-18] MEDS: NICODERM PATCH TD SCH (08:41)
[2019-09-18 08:54] LABS: CK INDEX 0.6 (0.0-2.5); CK-MB 5.71 ng/mL (0.0-5.0)
--- NOTE | 2019-09-18 11:40 | PROGRESS NOTE ---
DATE: 09/18/2019 SUBJECTIVE: I have seen and examined Mr. Lazar this morning. Mr. Lazar refers to be doing a lot better. He looks more awake. He is conversational. He is kind of off on the date, but he is able to tell me his name and the place he is currently. OBJECTIVE: Vital Signs: Blood pressure is 110/67, pulse of 85, respirations 18, temperature is 99 degrees. General: Mr. Lazar is a 74-year-old, elderly, gentleman. He is in bed. He does not seem to be in cardiopulmonary distress. He has a Venturi mask on his nose. HEENT: Mucosa is pink and moist. Anicteric. Acyanotic. Neck: Supple. Chest: Air entry is bilaterally reduced. There is prolonged expiratory phase of respiration. There is also diffuse expiratory rhonchi and wheezing. There are some mildly dilated veins on the upper extremities and the chest wall. GI: Abdomen is soft. It is distended, but nontender. Extremities: No pedal edema. 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 The patient follows basic commands. The patient's I's and O's show urine output was 2400. He is currently negative balance of 2330. MICROBIOLOGY: So far, influenza screening was negative. Strep throat is negative. Blood cultures are still pending. Hemoccult was positive. IMAGING STUDIES: Include a CT scan of the abdomen and pelvis that shows diverticulosis coli without evidence of acute diverticulosis. There is hepatic steatosis. ASSESSMENT: 1. Nausea and vomiting on presentation, presumably due to alcohol-induced gastritis. 2. Chronic cough in a patient with a longstanding history of more than [id number] history of tobacco use. This will be concerning for possible underlying chronic obstructive pulmonary disease. The patient is slightly bronchospastic, and has some abnormal findings on the lower part of the abdomen CT scan that was ordered. We will get a CT scan of the chest to get a better anatomy of what is going on. The initial chest x-ray was unrevealing. The patient is on nebulization. 3. Acute on chronic renal failure. Creatinine is down to 2.7. The patient is making adequate urine. 4. Lactic acidosis, improved. 5. Hypotension, presumably a combination of intravascular depletion and hypertension medication- induced, including lisinopril, carvedilol, furosemide. All of these have been withheld. 6. Alcohol use and abuse, complicated with alcohol hepatitis on admission, and hepatic steatosis on imaging studies. 7. Painless rectal bleed, presumably from the diverticulosis on imaging studies. 8. Irregular opacities in the area of the esophageal recess. This was a finding on a CT scan. Unsure if there are any anatomical issues going on over there. We will get a CT scan of the chest to look at that first, and then probably follow up with upper gastrointestinal studies/Gastroenterology consult. cc: Micah Beltran MD
[2019-09-18] MEDS: SODIUM CHLORIDE 0.9% INJ SCH (14:51)
--- NOTE | 2019-09-18 16:05 | Diag Imaging Result Doc PS360 ---
CT THORAX W/O CONTRAST - 09/18/2019 INDICATION: Dyspnea COMPARISON: Chest x-ray from earlier today FINDINGS: There is no adenopathy. There is mild cardiomegaly. There is advanced calcific coronary artery disease. Lung volumes are low. There are some multifocal linear and bandlike opacities in the lung bases, most likely atelectasis. Airways are grossly clear. There are advanced degenerative changes of the spine. No acute or suspicious bony lesion. IMPRESSION: Low lung volumes. Bilateral atelectasis. Cardiomegaly. This exam was performed using automated exposure control, adjustment of mA or kV according to patient size, and/or use of iterative reconstruction technique Electronically signed by Christos Castro 09/18/2019 4:03 PM
[2019-09-19] MEDS: SODIUM CHLORIDE 0.9% INJ SCH (02:09)
[2019-09-19] MEDS: PROTONIX IV SCH (02:09)
[2019-09-19] MEDS: THIAMINE 500 MG in NS 50 ML IV SCH ×2 (02:10→09:52)
[2019-09-19] MEDS: ATIVAN IV PRN (02:20)
[2019-09-19] MEDS: DUONEB (A & A) INH SCH ×6 (03:12→23:48)
[2019-09-19] MEDS: SYMBICORT 160/4.5 MICROGM INHALER INH SCH ×2 (08:24→19:55)
[2019-09-19 08:54] LABS: HEMATOCRIT 42.4 % (42.0-52.0); MCH 30.7 PG (27-31); MCHC 30.7 g/dL (33-37); MPV 10.5 FL (7.4-10.4); RBC 4.24 XMIL (4.7-6.1); RDW 14.4 % (11.5-14.5); WBC 5.19 X1000 (4.8-10.8)
[2019-09-19 08:56] LABS: ALBUMIN 2.9 g/dL (3.5-5.0); CALCIUM 8.1 mg/dL (8.8-10.2); CREATININE 2.2 mg/dL (0.7-1.2); PHOSPHORUS 3.3 mg/dL (2.7-4.5); POTASSIUM 4.1 mmol/L (3.5-5.1)
[2019-09-19] MEDS: NICODERM PATCH TD SCH (09:52)
[2019-09-19] MEDS: COREG PO SCH ×2 (09:52→20:34)
--- NOTE | 2019-09-19 10:28 | Diag Imaging Result Doc PS360 ---
EXAM: BA SWALLOW-ESOPHAGUS INDICATION: distal esophagus irregularities on CT TECHNIQUE: Oral barium contrast was administered under fluoroscopy with the patient in a semirecumbent position due to condition. Spot radiographs were obtained. COMPARISON: None. FINDINGS: Upon swallowing, there were moderate tertiary contractions at the mid and distal esophagus indicating dysmotility. No discrete filling defect is identified to indicate mass. No definite ulceration or stricture is appreciated. Barium did pass readily through the gastroesophageal junction and into the stomach. There was a tiny hiatal hernia that can be seen on a recent CT that cannot be appreciated on this study. IMPRESSION: Tertiary contractions throughout the esophagus suggesting nonspecific dysmotility. No definite filling defect or ulceration is appreciated, otherwise. Electronically signed by Eric Root 09/19/2019 10:26 AM
[2019-09-19] MEDS ORDERED: ATIVAN IV PRN (10:32)
--- NOTE | 2019-09-19 11:28 | PROGRESS NOTE ---
DATE: 09/19/2019 SUBJECTIVE: I have seen and examined Mr. Lazar today. Mr. Lazar refers to be doing a lot better. He is more alert and oriented. OBJECTIVE: Vital signs: Blood pressure is 116/72, pulse of 83, respirations 20, temperature is 97.8 degrees. The patient is saturating 95% on Venturi mask. General: Mr. Lazar is a 74- year-old elderly gentleman. He is in bed. He does not seem to be in any cardiopulmonary distress. HEENT: Mucosa is pink and moist. Anicteric. Acyanotic. Neck: Supple. Chest: Air entry is bilaterally reduced. There are still some crackles in the posterior lung field. There is increased expiratory phase of respiration. Mild dilation of the superficial veins on the anterior chest wall. Gastrointestinal: Abdomen is soft, nontender. Bowel sounds present. Extremities: No pedal edema. Cardiovascular: Regular rate and rhythm. Central nervous system: Patient is awake, alert. He is oriented x3 and he follows basic commands. No motor deficit. INTAKE AND OUTPUT: Urine output was 1010. Patient is currently negative balance of 2810. LABORATORY DATA: WBC is 5.19, hemoglobin is 13.0, platelet count of 72,000. Chemistry is reviewed. Creatinine is 2.2, is trending down. IMAGING STUDIES: A CT scan of the chest which was done yesterday did show low lung volumes, bilateral atelectasis and cardiomegaly. A barium swallow this morning shows tertiary contraction throughout the esophagus suggesting nonspecific dysmotility. No definite filling defect or ulceration is appreciated. CURRENT MEDICATIONS: Have all been reviewed. No changes. ASSESSMENT: 1. Nausea and vomiting on presentation, related to possible alcohol-induced gastritis. The patient has not had any more vomiting. He seems to be tolerating his diet. 2. Bronchospasm in patient with longstanding tobacco use concerning for undiagnosed chronic obstructive pulmonary disease. A CT scan of the chest was unremarkable except for some atelectasis. We will continue with adequate pulmonary hygiene. 3. Acute on chronic renal failure. Creatinine is down to 2.4. We are going to continue to withhold the DONG inhibitor and avoid any nephrotoxins. 4. Lactic acidosis, improved. 5. Hypotension, resolved. Patient's DONG inhibitor, diuretics were all withheld. Blood cultures have all been negative. Blood pressure has eventually normalized. 6. Alcohol use and abuse complicated with alcohol hepatitis on admission, hepatic steatosis on imaging. Patient has been advised on cessation. 7. Painless rectal bleed with fecal occult testing blood positive. A CT scan shows diverticulosis. The patient is not having ongoing gastrointestinal hemorrhaging. Hemoglobin is stabilized. We do not think there is the need for urgent Gastroenterology evaluation. 8. Small hiatal hernia noted on barium swallow. 9. Tertiary contractions on barium swallow concerning for nonspecific dysmotility. The patient will be advised to follow up with outpatient Gastroenterology for motility studies. He denies any difficulty swallowing at this point. 10. Alcohol use and abuse. PLAN: In general, I think Mr. Lazar is doing well. We are going to change all his IV medications to p.o. at this point. He is more alert. We are going to discontinue the Molina catheter. He continues to be remarkably hypoxemic which I think it is due to the atelectasis, so we are going to get an incentive spirometer and also encourage that Mr. Bach get up and sit in a chair for a more prolonged period of time. We are going to transfer him from the ICU to [facility], continue with the oxygen supplementation and the current management. cc: Micah Beltran MD
[2019-09-19] MEDS: ZOFRAN IV PRN ×2 (16:30→20:30)
[2019-09-19] MEDS: NEURONTIN PO SCH (20:35)
[2019-09-19] MEDS ORDERED: BLISTEX MEDICATED BERRY LIP BALM TOP PRN (22:08)
[2019-09-20] MEDS ORDERED: ROBITUSSIN PO PRN (00:16)
[2019-09-20] MEDS: ZOFRAN IV PRN ×2 (00:34→00:55)
[2019-09-20] MEDS: DUONEB (A & A) INH SCH ×2 (03:52→08:52)
[2019-09-20 06:28] LABS: ALBUMIN 2.8 g/dL (3.5-5.0); CALCIUM 8.4 mg/dL (8.8-10.2); CREATININE 1.9 mg/dL (0.7-1.2); PHOSPHORUS 2.1 mg/dL (2.7-4.5); POTASSIUM 3.8 mmol/L (3.5-5.1)
[2019-09-20] MEDS ORDERED: PROTONIX PO SCH (07:00)
[2019-09-20 07:43] VITALS: BP 166/92
[2019-09-20 07:58] LABS: HEMATOCRIT 40.5 % (42.0-52.0); HEMOGLOBIN 12.3 g/dL (14.0-18.0); MCH 30.8 PG (27-31); MCHC 30.4 g/dL (33-37); MCV 101.3 FL (81-99); MPV 10.3 FL (7.4-10.4); RDW 14.2 % (11.5-14.5); WBC 5.86 X1000 (4.8-10.8)
[2019-09-20] MEDS: SYMBICORT 160/4.5 MICROGM INHALER INH SCH (08:52)
[2019-09-20] MEDS ORDERED: LASIX PO SCH (09:00)
[2019-09-20] MEDS ORDERED: THERA M PLUS PO SCH (09:00)
[2019-09-20] MEDS: NEURONTIN PO SCH (09:31)
[2019-09-20] MEDS: NICODERM PATCH TD SCH (09:31)
[2019-09-20] MEDS: COREG PO SCH (09:32)
[2019-09-20 09:42] LABS: IRON SATURATION 40 %; TIBC 171 ug/dL; TOTAL IRON 69 ug/dL (53-167); UNBOUND IRON 102 ug/dL (112-346)
[2019-09-20 10:02] LABS: FERRITIN 757 ng/mL (30-400)
--- NOTE | 2019-09-20 11:07 | DISCHARGE SUMMARY ---
ADMISSION DATE: 09/17/2019 DISCHARGE DATE: 09/20/2019 DISPOSITION: Disposition is home. FOLLOW-UP: 1. Dr. Junaid Watson. 2. Dr. Graves. 3. Dr. Murillo. 4. Dr. Aleksandar Brito. CONSULTATION DURING ADMISSION: None. INVASIVE PROCEDURE DURING ADMISSION: None. IMAGING STUDIES OF SIGNIFICANCE: 1. A chest x-ray initially did show a faint persistent infiltrate or area of atelectasis in the left lung base. 2. A CT scan of the abdomen and pelvis showed diverticulosis coli without evidence of acute diverticulitis. There is hepatic steatosis. 3. A CT scan of the chest showed low lung volumes, bilateral atelectasis, and cardiomegaly. 4. Barium swallow showed tertiary contraction throughout the esophagus suggesting nonspecific dysmotility. No filling defect or ulceration appreciated. ADMISSION DIAGNOSES: 1. Acute delirium tremens. 2. Acute alcohol gastritis. 3. Mild acute exacerbation of heart failure with preserved ejection fraction. 4. Chronic obstructive pulmonary disease 5. Acute lower GI bleed. DIAGNOSES AT TIME OF DISCHARGE: 1. Nausea and vomiting on presentation related secondary to alcohol-induced gastritis resolved. 2. Bronchospasm on admission, most likely due to chronic obstructive pulmonary disease with exacerbation. 3. Acute on chronic renal failure. 4. Lactic acidosis resolved. 5. Hypotension on admission, presumably due to medication side effects. 6. Alcohol use and abuse complicated with alcohol hepatitis on admission, hepatic steatosis and thrombocytopenia. 7. Painless rectal bleed secondary to diverticular disease. 8. Small hiatal hernia on barium swallow. 9. Potentially esophageal contraction concerning for nonspecific dysmotility. The patient advised to follow up with his GI for possible manometric studies of the esophagus. 10. Alcohol use and abuse. 11. Microcytic anemia secondary to alcohol abuse. DISCHARGE MEDICATIONS: 1. Tamsulosin 0.4 p.o. at bedtime. 2. Carvedilol 25 mg b.i.d. 3. Simvastatin 40 mg p.o. daily. 4. Gabapentin 600 mg b.i.d. 5. Thiamine 100 mg p.o. daily. 6. Multivitamins 1 tablet daily. 7. Folic Acid 1 mg p.o. daily. 8. Lasix 40 mg p.o. daily. 9. Amlodipine 5 mg b.i.d. MEDICATIONS THAT HAVE BEEN DISCONTINUED: Lisinopril in the face of worsening acute renal failure. PRESENTING COMPLAINT: Nausea, vomiting, weakness, and bright red blood per rectum. HISTORY OF PRESENT COMPLAINT: Mr. Lazar is a 74-year-old gentleman with multiple comorbidities including congestive heart failure with preserved ejection fraction, COPD, chronic hypoxemic failure, hypertension, who came to the emergency room because of nausea and vomiting because of the above symptoms. Upon presentation, he was evaluated. He was also found to be withdrawing from alcohol. He was initially admitted to the critical care unit for acute delirium tremens, alcohol gastritis, and possible CHF/COPD exacerbation. HOSPITAL COURSE: During the hospital course in the ICU, Mr. Lazar was started on the withdrawal protocol to which he responded very well. He did not show any more signs of rectal bleed. His hemoglobin and hematocrit remained stable. He did not need any blood transfusion. He was subsequently transferred to the medical floor where he was observed under stable conditions. Mr. Lazar's nauseation and vomiting all subsided so he was started on diet, and he tolerated it well. He was found to have a creatinine of 3.3 on admission. Lasix and lisinopril were withheld. His creatinine came down to 1.9 at the time of the discharge. He has also been able to get up and move around. He has had other bowel movements, and he has not had any more bleeding. We think Mr. Lazar is fairly stable to be discharged. Mr. 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 We have also advised that he follows up with Dr. Graves for the COPD and possibly obesity with obstructive sleep apnea evaluation. All the discharge instructions have been discussed with him, and he voiced understanding. TIME SPENT: Time spent for discharge is 35 minutes. cc: MD Dr. Ronald Crump Dr., Dr., Dr.
== END 2019-09-20 10:00 | disposition home or self-care (01) | DRG 896 ==
LOC: ED 07:17 → SUATTDRO 16:14 → ICU 16:14 → 2N 09-20 06:48
PROVIDERS: ATTEND Internal Medicine